=== PATIENT | male | born 1955 | race Caucasian/White ===

== ENCOUNTER → 2019-01-17 | Outpatient (CLI) | payer OTHER | LOC: M PAIN 09:00 | PROVIDERS: ATTEND Anesthesiology | DX: M96.1 Postlaminectomy syndrome, not elsewhere classified (principal); M79.2 Neuralgia and neuritis, unspecified; Z02.6 Encounter for examination for insurance purposes; E11.9 Type 2 diabetes mellitus without complications; E78.00 Pure hypercholesterolemia, unspecified; I10 Essential (primary) hypertension; Z91.041 Radiographic dye allergy status; Z91.81 History of falling; Z79.84 Long term (current) use of oral hypoglycemic drugs; Z79.899 Other long term (current) drug therapy ==

== ENCOUNTER → 2019-05-05 | Outpatient (CLI) | payer OTHER ==
--- NOTE | 2019-05-08 03:11 | ECWPNPC ---
PATIENT NAME: CIRA PEÑA : 1955 GENDER: MALE VISIT DATE: 05/05/2019 DISCHARGE DATE: 05/05/19 1417 VISIT LOCKED DATE TIME: PHYSICIAN: LAMONT GREEN RESOURCE: LAMONT GREEN REASON FOR APPOINTMENT 1. W/C CHRONIC LUMBAR HISTORY OF PRESENT ILLNESS HISTORY OF PRESENT ILLNESS: PAIN THE PATIENT DESCRIBES THE PAIN... FALL RISK SCREENING: SCREENING :NO FALLS REPORTED IN THE LAST YEAR PAIN SCREENING: PATIENT HAS A COMPLAINT OF ACUTE OR CHRONIC PAIN :YES 63 YEAR OLD MALE PATIENT WITH A HISTORY OF CHRONIC LOW BACK. THE PATIENT DESCRIBES THE PAIN ACHING, SHARP, AND SHOOTING WITH A PAIN SCORE OF 9/10 DEPENDING ON PHYSICAL ACTIVITY. 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 THE PATIENT SAYS HE IS CURRENTLY NOT WORKING DUE TO HIS BACK INJURY. THE PATIENT SAYS HE CANNOT WALK FAR WITHOUT SUPPORT OF HIS 2 CANES OR WALKER, BUT SOMETIMES FALLS WHILE USING THEM. THE PATIENT SAYS HE MAINLY RELIES ON HIS WHEELCHAIR TO GET AROUND. THE PATIENT SAYS HIS LOW BACK PAIN IS AFFECTING HIS ABILITY TO PERFORM HIS DAILY ACTIVITIES SUCH CLEANING HIS HOUSE, COOKING, AND WALKING. THE PATIENT STATES HE HAS TRIED PHYSICAL THERAPY THAT HAS HELPED HIM IN THE PAST AND INJECTIONS, HOWEVER THEY DID NOT HELP MUCH. THE PATIENT SAYS HE IS USING NUCYNTA 50 MG AND GABAPENTIN 300 MG, WHICH AIDS IN SOME PAIN RELIEF, BUT HIS PAIN IS STILL QUITE SEVERE. THE PATIENT MENTIONS HE HAD AN OPERATION IN DECEMBER [address] SORIANO AND SUFFERED AN INFECTION AFTERWARD THAT WAS DISCOVERED LAST OCTOBER. THE PATIENT SAYS THE INFECTION CAUSED LOSS OF BOWEL AND URINE CONTROL AND CONSTANT HEADACHES, BUT HE FEELS HE IS RECOVERING AND IS FEELING MUCH BETTER. CURRENT MEDICATIONS TAKING NUCYNTA 50 MG TABLET 1 TABLET ORALLY 1 TAB IN A.M., 1 AT 1200 AND 2 TABS AT NIGHT TAKING GABAPENTIN 300 MG TABLET 1 TABLET ORALLY 2 TABS IN A.M. AND NOON AND 3 TABS IN EVENING TAKING ALLOPURINOL 300 MG TABLET 1 TAB ORALLY DAILY TAKING FLUCONAZOLE 100 MG TABLET 1 TABLET ORALLY TAKING AMLODIPINE BESYLATE 10 MG TABLET 1 TABLET ORALLY ONCE A DAY TAKING TAMSULOSIN HCL 0.4 MG CAPSULE EXTENDED RELEASE 24 HOUR 1 CAPSULE 30 MINUTES AFTER THE SAME MEAL EACH DAY ORALLY ONCE A DAY TAKING LISINOPRIL 10 MG TABLET 1 TABLET ORALLY ONCE A DAY TAKING LOVASTATIN 40 MG TABLET 1 TABLET WITH THE EVENING MEAL ORALLY ONCE A DAY TAKING RIZATRIPTAN BENZOATE 10 MG TABLET 1 TABLET NEEDED ONE TIME ORALLY ONCE A DAY TAKING FARXIGA 10 MG TABLET 1 TABLET ORALLY ONCE A DAY TAKING METFORMIN HCL 1000 MG TABLET 1 TABLET WITH A MEAL ORALLY BID TAKING GLIMEPIRIDE 4 MG TABLET 1 TABLET WITH BREAKFAST OR THE FIRST MAIN MEAL OF THE DAY ORALLY BID TAKING NORTRIPTYLINE HCL 25 MG CAPSULE 2 CAPS ORALLY BEFORE BEDTIME MEDICATION LIST REVIEWED AND RECONCILED WITH THE PATIENT PAST MEDICAL HISTORY DIABETES HIGH CHOLESTEROL LOW BACK PAIN GOUT KIDNEY INFECCTION HYPERTENSION HEADACHES ENLARGED PROSTATE ALLERGIES IV DYE: FEVER AND VOMITING - ALLERGY SURGICAL HISTORY BACK SURGERY WITH HARDWARE 12/2012 COLONOSCOPY-WITH POLYP REMOVAL AND GROWTH REMOVAL FAMILY HISTORY FATHER: 56 YRS, SUICIDE DEPRESSION ARTHRITIS, DIAGNOSED WITH UNSPECIFIED NONPSYCHOTIC MENTAL DISORDER FOLLOWING ORGANIC BRAIN DAMAGE MOTHER: ALIVE 94 YRS, DIABETES, UNSPECIFIED CEREBRAL ARTERY OCCLUSION WITH CEREBRAL INFARCTION 1 SON(S) . SON-UNKNOWN HISTORY. SOCIAL HISTORY GENERAL: TOBACCO USE ARE YOU A:NONSMOKER EDUCATION LEVEL OF EDUCATION:FINISHED HIGH SCHOOL DIET: CARBOHYDRATE CONTROLLED. LANGUAGE LANGUAGES SPOKEN:THAI DOMESTIC VIOLENCE DO YOU FEEL SAFE IN YOUR ENVIRONMENT?YES NEW PATIENT PAIN DIARY PATIENT DESCRIBES PAIN :ACHING, HAVE IT ALL THE TIME, SHARP FROM 0-10, WHAT LEVEL IS YOUR PAIN TODAY?10 RECREATIONAL DRUG USE DRUG USE?NO EXERCISE: NONE. 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 PAIN CLINIC PFS, CLERGY, PUBLIC HEALTH REFERRALS HAS THE PATIENT BEEN EDUCATED REGARDING HIS/HER PLAN OF CARE?YES HAS THE PATIENT BEEN EDUCATED REGARDING PAIN, THE RISK FOR PAIN, THE IMPORTANCE OF EFFECTIVE PAIN MANAGEMENT, AND THE PAIN ASSESSMENT PROCESS?YES LATEX QUESTIONNAIRE LATEX ALLERGY : HAVE YOU EVER DEVELOPED ANY TYPE OF REACTION AFTER HANDLING LATEX PRODUCTS SUCH RUBBER GLOVES, CONDOMS, DIAPHRAGMS, BALLOONS, SOCKS, OR UNDERWEAR?NO LATEX ALLERGY : HAVE YOU EVER DEVELOPED ANY TYPE OF REACTION DURING OR AFTER DENTAL APPOINTMENT, VAGINAL/RECTAL EXAMINATION, SURGICAL PROCEDURE, OR ANY OTHER EXPOSURE?NO DATE ASKED : 01/17/2019 LATEX RISK : HAVE YOU EVER HAD ANY DIFFICULTY BREATHING OR HIVES AFTER EATING OR HANDLING ANY FRUITS, OR VEGETABLES; SUCH KIWI, BANANAS, STONE FRUITS, OR CHESTNUTSNO LATEX RISK : DO YOU HAVE A PREVIOUS PERSONAL HISTORY OF MORE THAN NINE SURGERIES, SPINA BIFIDA, OR REPEATED CATHERIZATIONS? NO LATEX RISK : ARE YOU FREQUENTLY EXPOSED TO LATEX PRODUCTS IN YOUR OCCUPATION?NO CAFFEINE CAFFEINE USE?NO ADVANCE DIRECTIVE ADVANCE DIRECTIVE DISCUSSED WITH PATIENT:YES PT DOES NOT HAVE ANY ADVANCED DIRECTIVES AND HE DECLINES INFORMATION ON HCP AT THIS TIME. ZOROASTRIAN [id number] NONE MARITAL STATUS: .. ALCOHOL SCREENING DID YOU HAVE A DRINK CONTAINING ALCOHOL IN THE PAST YEAR?NO POINTS0 INTERPRETATIONNEGATIVE OCCUPATION: DISABLED. HOSPITALIZATION/MAJOR DIAGNOSTIC PROCEDURE BACK SURGERY REVIEW OF SYSTEMS REVIEWED BY: PROVIDER: BRITTANIE PERRY . CONSTITUTIONAL: ANY CHANGE IN YOUR MEDICAL CONDITION? NO . CHILLS NO . FEVER NO . INFECTION: DO YOU HAVE NEW INFECTIONS? NO . DO YOU HAVE HISTORY OF MRSA? NO . MUSCULOSKELETAL: ANY NEW PATTERNS OF PAIN OR NUMBNESS? NO . GASTROENTEROLOGY: ANY NEW CHANGE IN BOWEL CONTROL? NO . GENITOURINARY: ANY NEW CHANGE IN BLADDER CONTROL? YES, PT C/O URGENCY SINCE BACK SURGERY 07/2018 . IS THERE A CHANCE YOU COULD BE ? NO . HEMATOLOGY/LYMPH: DO YOU TAKE ANY BLOOD THINNERS? (FOR EXAMPLE- COUMADIN, PLAVIX, AGGRENOX, PLATEL, PRADAXA, OR XARELTO) NO . WHEN WAS YOUR LAST DOSE? DATE: TIME: . NEUROLOGY: HAVE YOU FALLEN IN THE PAST 12 MONTHS? YES, PT FELL 2 MOS AGO FROM LOSS OF BALANCE PT DENIES INJURIES . ANY NEW EXTREMITY NUMBNESS OR WEAKNESS? NO . CARDIOLOGY: DO YOU HAVE A PACEMAKER OR DEFIBRILLATOR? NO . RESPIRATORY: HAVE YOU BEEN SICK IN THE PAST WEEK? NO . FEVER NO . FLU LIKE SYMPTOMS? NO . COUGH NO . INTEGUMENTARY: DO YOU HAVE ANY RASHES OR OPEN SORES? NO . ALLERGIC/IMMUNO: ARE YOU ALLERGIC TO IV DYE? NO . ANY NEW ALLERGIES? NO . PSYCHIATRIC: DO YOU HAVE THOUGHTS OF HURTING YOURSELF OR SOMEONE ELSE? NO . ARE YOU ABUSED, NEGLECTED, OR IN AN UNSAFE ENVIRONMENT? NO . ENDOCRINOLOGY: ARE YOU DIABETIC? NO . OTHER: DO YOU NEED ANY PRESCRIPTIONS? NO . IF YES, PLEASE LIST: ____ . ANY NEW PROBLEMS WITH YOUR MEDICATIONS? NO . WHEN DID YOU LAST EAT? ____ . WHEN DID YOU LAST DRINK? ____ . WHAT DID YOU LAST DRINK? ____ . NAME OF PERSON DRIVING YOU HOME? ____ . DO YOU HAVE ANY OTHER QUESTIONS OR CONCERNS NO . VITAL SIGNS WT 254 LBS, HT 70 IN, BMI 36.44 INDEX, BP 121/69 MM HG, HR 91 /MIN, RR 16 /MIN, TEMP 97.9 F, OXYGEN SAT % 96, REVIEWED BY: EM. EXAMINATION GENERAL EXAMINATION: GENERALNO ACUTE DISTRESS, WELL NOURISHED AND HYDRATED. PSYCHAPPROPRIATE MOOD AND AFFECT . LUNGS:CLEAR TO AUSCULTATION BILATERALLY, NO WHEEZES, RHONCHI, RALES. HEART:NO MURMURS, REGULAR RATE AND RHYTHM. ASSESSMENTS LUMBAR POST-LAMINECTOMY SYNDROME - M96.1 (PRIMARY) TREATMENT LUMBAR POST-LAMINECTOMY SYNDROME CLINICAL NOTES: 64-YEAR-OLD MALE IN FOR WORKMEN'S COMP. CHRONIC PAIN FOLLOW-UP. GIVEN PRESENTING SYMPTOMS AND RESULTS OF PHYSICAL EXAMINATION RECOMMENDED INVESTIGATING TO WHY PATIENT HAS NOT BEEN CONTACTED REGARDING PSYCH EVAL OF YET. FURTHER RECOMMENDED PATIENT DISCUSS DCS TRIAL WITH THE [employer] REP. PATIENT HAS EXPRESSED UNDERSTANDING OF AND WAS IN AGREEMENT WITH TX PLAN. GIVEN TIME TO ASK QUESTIONS AND EXPRESS CONCERNS. CHERYL FROM [employer] DID DISCUSS DCS TRIAL WITH PATIENT IN OFFICE TODAY. . PROCEDURES PN WORKMANS' COMP OPINION IN YOUR OPINION, WAS THE INCIDENT THAT THE PATIENT DESCRIBED THE COMPETENT MEDICAL CAUSE OF THIS INJURY/ILLNESS? YES ARE THE PATIENT'S COMPLAINTS CONSISTENT WITH HIS/HER HISTORY OF THE INJURY/ILLNESS? YES IS THE PATIENT'S HISTORY OF THE INJURY/ILLNESS CONSISTENT WITH YOUR OBJECTIVE FINDING? YES WHAT IS THE PERCENTAGE OF TEMPORARY IMPAIRMENT? TOTAL = 100% IS THE PATIENT WORKING? NO DOCTOR ON SITE: NICOLE MCNEILL MD PROCEDURE CODES FA211 ESTABILISHED PATIENT [facility] CHARGE DISPOSITION & COMMUNICATION FOLLOW UP AFTER PSYCH EVAL (REASON: WORKMEN'S COMP. LOW BACK PAIN) ELECTRONICALLY SIGNED BY ZAC HARO ON 05/07/2019 AT 01:43 PM EST DISCLAIMER : THIS IS A VISIT SUMMARY EXTRACTED FROM THE [employer] CHART. IT IS NOT A COPY OF THE [employer] PROGRESS NOTE. ADAM
== END ==
LOC: M PAIN 13:15
PROVIDERS: ATTEND Family Medicine
DX: M96.1 Postlaminectomy syndrome, not elsewhere classified (principal); E11.9 Type 2 diabetes mellitus without complications; I10 Essential (primary) hypertension; Z91.041 Radiographic dye allergy status; Z79.84 Long term (current) use of oral hypoglycemic drugs; Z79.891 Long term (current) use of opiate analgesic; Z79.899 Other long term (current) drug therapy

== ENCOUNTER → 2019-08-19 | Outpatient (CLI) | payer OTHER, MEDICARE ==
--- NOTE | 2019-08-28 02:41 | ECWPNPC ---
PATIENT NAME: CIRA PEÑA : 1955 GENDER: MALE VISIT DATE: 08/19/2019 DISCHARGE DATE: 08/19/19 1427 VISIT LOCKED DATE TIME: PHYSICIAN: NICOLE GONSALES MD RESOURCE: NICOLE GONSALES MD REASON FOR APPOINTMENT 1. W/C DISCUSS MILD PROCEDURE VS DCS TRIAL HISTORY OF PRESENT ILLNESS HISTORY OF PRESENT ILLNESS: PAIN THE PATIENT DESCRIBES THE PAIN... PERMISSION FROM PATIENT WAS RECEIVED TO DO TELEPHONE OFFICE VISITS. 64 YEAR OLD MALE PATIENT WITH A HISTORY OF CHRONIC LOW BACK AND LEG PAIN. THE PATIENT DESCRIBES THE PAIN ACHING, HAVE IT ALL THE TIME, SHARP WITH A PAIN SCORE OF 7-10/10 DEPENDING ON PHYSICAL ACTIVITY. 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 THE PATIENT SAYS HE HAS COMPLETED HIS PSYCHOLOGICAL EVALUATION ON JUNE 17, 2019. THE PATIENT SAYS HIS PAIN IS NOT BETTER SINCE HIS LAST MRI AND HAS WORSENED AT TIMES. THE PATIENT SAYS HIS DOCTOR HAD HIM STOP NUCYNTA 50 MG AND START BELBUCA. THE PATIENT SAYS HE IS USING A CANE AND WALKER TO AMBULATE AND SOMETIMES A WHEELCHAIR WELL. THE PATIENT SAYS HE SITS FOR MOST OF THE DAY SINCE IT IS HARD FOR HIM TO STAND DUE TO HIS PAIN. PATIENT DENIES UNEXPLAINABLE WEIGHT LOSS, FEVER, CHILLS, NEW CHANGES ON HIS URINARY OR BOWEL CONTROL. FALL RISK SCREENING: SCREENING :NO FALLS REPORTED IN THE LAST YEAR CURRENT MEDICATIONS TAKING GABAPENTIN 300 MG TABLET 1 TABLET ORALLY 2 TABS IN A.M. AND NOON AND 3 TABS IN EVENING TAKING ALLOPURINOL 300 MG TABLET 1 TAB ORALLY DAILY TAKING FLUCONAZOLE 100 MG TABLET 1 TABLET ORALLY TAKING AMLODIPINE BESYLATE 10 MG TABLET 1 TABLET ORALLY ONCE A DAY TAKING LISINOPRIL 10 MG TABLET 1 TABLET ORALLY ONCE A DAY TAKING LOVASTATIN 40 MG TABLET 1 TABLET WITH THE EVENING MEAL ORALLY ONCE A DAY TAKING RIZATRIPTAN BENZOATE 10 MG TABLET 1 TABLET NEEDED ONE TIME ORALLY ONCE A DAY TAKING FARXIGA 10 MG TABLET 1 TABLET ORALLY ONCE A DAY TAKING METFORMIN HCL 1000 MG TABLET 1 TABLET WITH A MEAL ORALLY BID TAKING GLIMEPIRIDE 4 MG TABLET 1 TABLET WITH BREAKFAST OR THE FIRST MAIN MEAL OF THE DAY ORALLY BID TAKING NORTRIPTYLINE HCL 25 MG CAPSULE 2 CAPS ORALLY BEFORE BEDTIME TAKING TAMSULOSIN HCL 0.4 MG CAPSULE EXTENDED RELEASE 24 HOUR 1 CAPSULE 30 MINUTES AFTER THE SAME MEAL EACH DAY ORALLY ONCE A DAY NOT-TAKING NUCYNTA 50 MG TABLET 1 TABLET ORALLY 1 TAB IN A.M., 1 AT 1200 AND 2 TABS AT NIGHT NOT-TAKING BACTRIM DS 800-160 MG TABLET 1 TABLET 1 HOUR PRIOR TO YOUR CYSTOSCOPY ORALLY ONCE MEDICATION LIST REVIEWED AND RECONCILED WITH THE PATIENT PAST MEDICAL HISTORY DIABETES HIGH CHOLESTEROL LOW BACK PAIN GOUT KIDNEY INFECCTION HYPERTENSION HEADACHES ENLARGED PROSTATE ALLERGIES IV DYE: FEVER AND VOMITING - ALLERGY SURGICAL HISTORY BACK SURGERY WITH HARDWARE 12/2012 COLONOSCOPY-WITH POLYP REMOVAL AND GROWTH REMOVAL CYSTOSCOPY 06/20/19 FAMILY HISTORY FATHER: 56 YRS, SUICIDE DEPRESSION ARTHRITIS, DIAGNOSED WITH UNSPECIFIED NONPSYCHOTIC MENTAL DISORDER FOLLOWING ORGANIC BRAIN DAMAGE MOTHER: ALIVE 95 YRS, DIABETES, UNSPECIFIED CEREBRAL ARTERY OCCLUSION WITH CEREBRAL INFARCTION 1 SON(S) . SON-UNKNOWN HISTORY. SOCIAL HISTORY GENERAL: TOBACCO USE ARE YOU A:NONSMOKER EDUCATION LEVEL OF EDUCATION:FINISHED HIGH SCHOOL DIET: CARBOHYDRATE CONTROLLED. LANGUAGE LANGUAGES SPOKEN:PORTUGUESE DOMESTIC VIOLENCE DO YOU FEEL SAFE IN YOUR ENVIRONMENT?YES NEW PATIENT PAIN DIARY PATIENT DESCRIBES PAIN :ACHING, HAVE IT ALL THE TIME, SHARP FROM 0-10, WHAT LEVEL IS YOUR PAIN TODAY?10 RECREATIONAL DRUG USE DRUG USE?NO EXERCISE: NONE. LEARNING BARRIERS / SPECIAL NEEDS BARRIERS TO LEARNING?NO HEARING IMPAIRED?NO VISION IMPAIRED?YES COGNITIVELY IMPAIRED?NO :CORRECTIVE LENSES READING READINESS TO LEARN?YES LEARNING PREFERENCES?NO LEARNING CAPABILITIES PRESENT?YES EMOTIONAL BARRIERS?NO SPECIAL DEVICES?YES :CANTimbo WALKER 2 CANES REFRIGERATOR CABINETMAKER NEEDED?NO PAIN CLINIC PFS, CLERGY, PUBLIC HEALTH REFERRALS HAS THE PATIENT BEEN EDUCATED REGARDING HIS/HER PLAN OF CARE?YES HAS THE PATIENT BEEN EDUCATED REGARDING PAIN, THE RISK FOR PAIN, THE IMPORTANCE OF EFFECTIVE PAIN MANAGEMENT, AND THE PAIN ASSESSMENT PROCESS?YES LATEX QUESTIONNAIRE LATEX ALLERGY : HAVE YOU EVER DEVELOPED ANY TYPE OF REACTION AFTER HANDLING LATEX PRODUCTS SUCH RUBBER GLOVES, CONDOMS, DIAPHRAGMS, BALLOONS, SOCKS, OR UNDERWEAR?NO LATEX ALLERGY : HAVE YOU EVER DEVELOPED ANY TYPE OF REACTION DURING OR AFTER DENTAL APPOINTMENT, VAGINAL/RECTAL EXAMINATION, SURGICAL PROCEDURE, OR ANY OTHER EXPOSURE?NO DATE ASKED : 06/20/2019 LATEX RISK : HAVE YOU EVER HAD ANY DIFFICULTY BREATHING OR HIVES AFTER EATING OR HANDLING ANY FRUITS, OR VEGETABLES; SUCH KIWI, BANANAS, STONE FRUITS, OR CHESTNUTSNO LATEX RISK : DO YOU HAVE A PREVIOUS PERSONAL HISTORY OF MORE THAN NINE SURGERIES, SPINA BIFIDA, OR REPEATED CATHERIZATIONS? NO LATEX RISK : ARE YOU FREQUENTLY EXPOSED TO LATEX PRODUCTS IN YOUR OCCUPATION?NO CAFFEINE CAFFEINE USE?NO ADVANCE DIRECTIVE ADVANCE DIRECTIVE DISCUSSED WITH PATIENT:YES PT DOES NOT HAVE ANY ADVANCED DIRECTIVES AND HE DECLINES INFORMATION ON HCP AT THIS TIME. HINDU [id number] NONE MARITAL STATUS: .. ALCOHOL SCREENING DID YOU HAVE A DRINK CONTAINING ALCOHOL IN THE PAST YEAR?NO POINTS0 INTERPRETATIONNEGATIVE OCCUPATION: DISABLED. HOSPITALIZATION/MAJOR DIAGNOSTIC PROCEDURE BACK SURGERY REVIEW OF SYSTEMS REVIEWED BY: PROVIDER: NICOLE GONSALES MD . CONSTITUTIONAL: ANY CHANGE IN YOUR MEDICAL CONDITION? NO . CHILLS NO . FEVER NO . INFECTION: DO YOU HAVE NEW INFECTIONS? NO . DO YOU HAVE HISTORY OF MRSA? NO . MUSCULOSKELETAL: ANY NEW PATTERNS OF PAIN OR NUMBNESS? NO . GASTROENTEROLOGY: ANY NEW CHANGE IN BOWEL CONTROL? NO . GENITOURINARY: ANY NEW CHANGE IN BLADDER CONTROL? NO . IS THERE A CHANCE YOU COULD BE ? NO . HEMATOLOGY/LYMPH: DO YOU TAKE ANY BLOOD THINNERS? (FOR EXAMPLE- COUMADIN, PLAVIX, AGGRENOX, PLATEL, PRADAXA, OR XARELTO) NO . WHEN WAS YOUR LAST DOSE? DATE: TIME: . NEUROLOGY: HAVE YOU FALLEN IN THE PAST 12 MONTHS? YES I CANT TO WHEM . ANY NEW EXTREMITY NUMBNESS OR WEAKNESS? NO . CARDIOLOGY: DO YOU HAVE A PACEMAKER OR DEFIBRILLATOR? NO . RESPIRATORY: HAVE YOU BEEN SICK IN THE PAST WEEK? NO . FEVER NO . FLU LIKE SYMPTOMS? NO . COUGH NO . INTEGUMENTARY: DO YOU HAVE ANY RASHES OR OPEN SORES? NO . ALLERGIC/IMMUNO: ARE YOU ALLERGIC TO IV DYE? YES . ANY NEW ALLERGIES? NO . PSYCHIATRIC: DO YOU HAVE THOUGHTS OF HURTING YOURSELF OR SOMEONE ELSE? NO . ARE YOU ABUSED, NEGLECTED, OR IN AN UNSAFE ENVIRONMENT? NO . ENDOCRINOLOGY: ARE YOU DIABETIC? NO . OTHER: DO YOU NEED ANY PRESCRIPTIONS? NO . IF YES, PLEASE LIST: ____ . ANY NEW PROBLEMS WITH YOUR MEDICATIONS? NO . WHEN DID YOU LAST EAT? ____ . WHEN DID YOU LAST DRINK? ____ . WHAT DID YOU LAST DRINK? ____ . NAME OF PERSON DRIVING YOU HOME? ____ . DO YOU HAVE ANY OTHER QUESTIONS OR CONCERNS PT VERBALIZES THAT HE HAS DIFFICULTY UNDERSTANDING DR GONSALES , THIS NURSE STATED THAT HIS SCRIBE WILL BE WITH HIM AND THAT HE SHOULD ASK WHEN HE DOESNT UNDERSTAND . EXAMINATION GENERAL EXAMINATION: TELEMEDICINE VISIT. PSYCHOLOGICAL EVALUATION DONE ON 06/17/2019 WAS REVIEWED. MRI OF THE LUMBAR SPINE DONE ON 03/05/2018 SHOWS POST LAMINECTOMY CHANGES. MRI OF THE THORACIC SPINE DONE ON 09/05/2018 SHOWS FACET ARTHROPATHY CHANGES. ASSESSMENTS LUMBAR POST-LAMINECTOMY SYNDROME - M96.1 (PRIMARY) OTHER CHRONIC PAIN - G89.29 LOW BACK PAIN - M54.5 PAIN IN THORACIC SPINE - M54.6 TREATMENT LUMBAR POST-LAMINECTOMY SYNDROME CLINICAL NOTES: WE DISCUSSED SEVERAL ISSUES WITH MR. PEÑA' PAIN MANAGEMENT CASE. I WOULD LIKE TO REQUEST FOR A NEW THORACIC AND LUMBAR MRI TO BE DONE SINCE THE PATIENT'S LAST MRI'S WERE DONE MORE THAN A YEAR AGO, AND TO ENSURE THERE IS ADEQUATE SPACE FOR THE DCS LEAD CABLES TO PASS THROUGH THE SPINE. I DISCUSSED THE DCS TRIAL WITH THE PATIENT AND AM LOOKING FOR MORE THAN 80 PERCENT OF PAIN RELIEF DURING THE TRIAL WEEK. THE PATIENT COMPLETED HIS DCS PSYCHOLOGICAL EVALUATION, WHICH STATES THERE ARE NO ISSUES THAT WOULD INTERFERE WITH HIS TRIAL OR IMPLANT SURGERY. I WILL REQUEST FOR AUTHORIZATION FOR THE DCS TRIAL. THE PATIENT WILL FOLLOW UP WITH THE NURSE PRACTITIONER IN 2 MONTHS. THE TOTAL TIME FOR THE TELEPHONE VISIT WAS 12 MINUTES. INSTRUCTIONS WERE GIVEN, QUESTIONS WERE ANSWERED, PATIENT REPORTS UNDERSTANDING AND AGREES WITH THE PLAN. I, KAREN BOUDREAUX, DOCUMENTED THE ABOVE INFORMATION ACTING A SCRIBE FOR DR. GONSALES. I HAVE REVIEWED THE ABOVE DOCUMENT, WRITTEN BY KAREN BOUDREAUX SCRIBTimbo AND I VERIFY THAT IT IS ACCURATE. . OTHER CHRONIC PAIN [facility] MRI LUMBAR W/O CONTRAST (CPT [id number] LOW BACK PAIN [facility] MRI LUMBAR W/O CONTRAST (CPT [id number] PAIN IN THORACIC SPINE [facility] MRI SPINE,THORACIC WITHOUT [id number] PROCEDURES PN WORKMANS' COMP OPINION IN YOUR OPINION, WAS THE INCIDENT THAT THE PATIENT DESCRIBED THE COMPETENT MEDICAL CAUSE OF THIS INJURY/ILLNESS? YES ARE THE PATIENT'S COMPLAINTS CONSISTENT WITH HIS/HER HISTORY OF THE INJURY/ILLNESS? YES IS THE PATIENT'S HISTORY OF THE INJURY/ILLNESS CONSISTENT WITH YOUR OBJECTIVE FINDING? YES WHAT IS THE PERCENTAGE OF TEMPORARY IMPAIRMENT? TOTAL = 100% IS THE PATIENT WORKING? NO DOCTOR ON SITE: NICOLE MCNEILL MD DISPOSITION & COMMUNICATION FOLLOW UP 2 MONTHS (REASON: ORDERING NEW THORACIC/LS MRI; F/UP WITH MOTOR MECHANIC IN 2MTHS;GOING FOR SCS TRIAL) ELECTRONICALLY SIGNED BY NICOLE GONSALES MD, MD ON 08/27/2019 AT 05:19 PM EDT DISCLAIMER : THIS IS A VISIT SUMMARY EXTRACTED FROM THE [employer] CHART. IT IS NOT A COPY OF THE [employer] PROGRESS NOTE. MTDD
== END ==
LOC: M PAIN 13:00
PROVIDERS: ATTEND Anesthesiology
DX: M96.1 Postlaminectomy syndrome, not elsewhere classified (principal); G89.29 Other chronic pain; M54.5 Low back pain; M54.6 Pain in thoracic spine; E11.9 Type 2 diabetes mellitus without complications; I10 Essential (primary) hypertension; Z91.041 Radiographic dye allergy status; Z79.84 Long term (current) use of oral hypoglycemic drugs; Z79.899 Other long term (current) drug therapy

== ENCOUNTER → 2019-10-21 | Outpatient (CLI) | payer OTHER, MEDICARE ==
--- NOTE | 2019-10-23 00:26 | ECWPNPC ---
PATIENT NAME: CIRA PEÑA : 1955 GENDER: MALE VISIT DATE: 10/21/2019 DISCHARGE DATE: 10/21/19924 VISIT LOCKED DATE TIME: PHYSICIAN: LAMONT GREEN RESOURCE: LAMONT GREEN A HISTORY OF PRESENT ILLNESS GENERAL: -64-YEAR-OLD MALE IN FOR CHRONIC PAIN FOLLOW-UP. AT LAST CLINIC VISIT PATIENT MET WITH DR. GONSALES AND DISCUSSED DCS TRIAL. AT THAT TIME A LUMBAR AND THORACIC MRI WERE ORDERED WHICH WERE COMPLETED BY PATIENT. HE RATES HIS PAIN CURRENTLY AT A 10 OUT OF 10 AND DESCRIBES IT SHARP. 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 PAIN SCREENING: PATIENT HAS A COMPLAINT OF ACUTE OR CHRONIC PAIN :YES LOCATION OF PAIN:LOW BACK INTENSITY OF PAIN (SCALE OF 1 TO 10):10 WHAT DOES YOUR PAIN FEEL LIKE:SHARP DURATION:CONTINOUS, CONSTANT, ALL DAY PAIN IS INCREASED BY:ACTIVITIES WALKING PAIN IS DECREASED BY:USE OF PAIN MEDICATIONS, SITTING PLAN/GOALS/TREATMENT/INTERVENTION/FOLLOW UP:SEE PLAN FALL RISK SCREENING: SCREENING :ONE FALL WITHOUT INJURY IN THE PAST YEAR DEPRESSION SCREENING: PHQ-2 (2015 EDITION) LITTLE INTEREST OR PLEASURE IN DOING THINGS?NOT AT ALL FEELING DOWN, DEPRESSED, OR HOPELESS?NOT AT ALL TOTAL SCORE0 PAIN CENTER INTAKE QUESTIONS: DO YOU HAVE A HISTORY OF MRSA? :NO DO YOU TAKE A BLOOD THINNERS? :NO DO YOU HAVE ANY BLEEDING DISORDERS? :NO ANY NEW NUMBNESS OR WEAKNESS IN YOUR LEGS OR ARMS? :YES BOTH LEGS ANY PACEMAKER,DEFIBRILLATOR, OR DORSAL COLUMN STIMULATOR? :NO DO YOU HAVE ANY RASHES OR OPEN SORES? :NO ARE YOU ALLERGIC TO IV DYE? :YES ARE YOU DIABETIC? :YES ANY NEW PROBLEMS WITH YOUR MEDICATIONS? :NO HAVE YOU RECEIVED A VACCINE IN THE PAST 30 DAYS? :NO DO YOU PLAN TO RECEIVE A VACCINE IN THE NEXT 21 DAYS? :NO DO YOU NEED ANY PRESCRIPTION? :NO DO YOU TAKE ANY IMMUNOSUPPRESSIVE MEDICATIONS? :NO NURSING NOTE: -. CURRENT MEDICATIONS TAKING NUCYNTA 50 MG TABLET 1 TABLET ORALLY 1 TAB IN A.M., 1 AT 1200 AND 2 TABS AT NIGHT TAKING BACTRIM DS 800-160 MG TABLET 1 TABLET 1 HOUR PRIOR TO YOUR CYSTOSCOPY ORALLY ONCE TAKING GABAPENTIN 300 MG TABLET 1 TABLET ORALLY 2 TABS IN A.M. AND NOON AND 3 TABS IN EVENING TAKING ALLOPURINOL 300 MG TABLET 1 TAB ORALLY DAILY TAKING FLUCONAZOLE 100 MG TABLET 1 TABLET ORALLY TAKING AMLODIPINE BESYLATE 10 MG TABLET 1 TABLET ORALLY ONCE A DAY TAKING LISINOPRIL 10 MG TABLET 1 TABLET ORALLY ONCE A DAY TAKING LOVASTATIN 40 MG TABLET 1 TABLET WITH THE EVENING MEAL ORALLY ONCE A DAY TAKING RIZATRIPTAN BENZOATE 10 MG TABLET 1 TABLET NEEDED ONE TIME ORALLY ONCE A DAY TAKING FARXIGA 10 MG TABLET 1 TABLET ORALLY ONCE A DAY TAKING METFORMIN HCL 1000 MG TABLET 1 TABLET WITH A MEAL ORALLY BID TAKING GLIMEPIRIDE 4 MG TABLET 1 TABLET WITH BREAKFAST OR THE FIRST MAIN MEAL OF THE DAY ORALLY BID TAKING NORTRIPTYLINE HCL 25 MG CAPSULE 2 CAPS ORALLY BEFORE BEDTIME TAKING TAMSULOSIN HCL 0.4 MG CAPSULE EXTENDED RELEASE 24 HOUR 1 CAPSULE 30 MINUTES AFTER THE SAME MEAL EACH DAY ORALLY ONCE A DAY MEDICATION LIST REVIEWED AND RECONCILED WITH THE PATIENT PAST MEDICAL HISTORY DIABETES HIGH CHOLESTEROL LOW BACK PAIN GOUT KIDNEY INFECCTION HYPERTENSION HEADACHES ENLARGED PROSTATE ALLERGIES IV DYE: FEVER AND VOMITING - ALLERGY SURGICAL HISTORY BACK SURGERY WITH HARDWARE 12/2012 COLONOSCOPY-WITH POLYP REMOVAL AND GROWTH REMOVAL CYSTOSCOPY 06/20/19 FAMILY HISTORY FATHER: 56 YRS, SUICIDE DEPRESSION ARTHRITIS, DIAGNOSED WITH UNSPECIFIED NONPSYCHOTIC MENTAL DISORDER FOLLOWING ORGANIC BRAIN DAMAGE MOTHER: ALIVE 95 YRS, DIABETES, UNSPECIFIED CEREBRAL ARTERY OCCLUSION WITH CEREBRAL INFARCTION 1 SON(S) . SON-UNKNOWN HISTORY. SOCIAL HISTORY GENERAL: TOBACCO USE ARE YOU A:NONSMOKER LATEX QUESTIONNAIRE LATEX ALLERGY : HAVE YOU EVER DEVELOPED ANY TYPE OF REACTION AFTER HANDLING LATEX PRODUCTS SUCH RUBBER GLOVES, CONDOMS, DIAPHRAGMS, BALLOONS, SOCKS, OR UNDERWEAR?NO LATEX ALLERGY : HAVE YOU EVER DEVELOPED ANY TYPE OF REACTION DURING OR AFTER DENTAL APPOINTMENT, VAGINAL/RECTAL EXAMINATION, SURGICAL PROCEDURE, OR ANY OTHER EXPOSURE?NO LATEX RISK : HAVE YOU EVER HAD ANY DIFFICULTY BREATHING OR HIVES AFTER EATING OR HANDLING ANY FRUITS, OR VEGETABLES; SUCH KIWI, BANANAS, STONE FRUITS, OR CHESTNUTSNO LATEX RISK : DO YOU HAVE A PREVIOUS PERSONAL HISTORY OF MORE THAN NINE SURGERIES, SPINA BIFIDA, OR REPEATED CATHERIZATIONS? NO LATEX RISK : ARE YOU FREQUENTLY EXPOSED TO LATEX PRODUCTS IN YOUR OCCUPATION?NO DATE ASKED : 10/21/2019 ALCOHOL SCREENING DID YOU HAVE A DRINK CONTAINING ALCOHOL IN THE PAST YEAR?NO POINTS0 INTERPRETATIONNEGATIVE RECREATIONAL DRUG USE DRUG USE?NO CAFFEINE CAFFEINE USE?NO SIKH [id number] NONE LANGUAGE LANGUAGES SPOKEN:TAMAZIGHT EDUCATION LEVEL OF EDUCATION:FINISHED HIGH SCHOOL LEARNING BARRIERS / SPECIAL NEEDS BARRIERS TO LEARNING?NO HEARING IMPAIRED?NO VISION IMPAIRED?YES COGNITIVELY IMPAIRED?NO :CORRECTIVE LENSES READING READINESS TO LEARN?YES LEARNING PREFERENCES?NO LEARNING CAPABILITIES PRESENT?YES EMOTIONAL BARRIERS?NO SPECIAL DEVICES?YES :CANE, WALKER 2 CANES SHIPPING CLERK NEEDED?NO DOMESTIC VIOLENCE DO YOU FEEL SAFE IN YOUR ENVIRONMENT?YES OCCUPATION: DISABLED. DIET: CARBOHYDRATE CONTROLLED. EXERCISE: NONE. MARITAL STATUS: .. NEW PATIENT PAIN DIARY PATIENT DESCRIBES PAIN :ACHING, HAVE IT ALL THE TIME, SHARP FROM 0-10, WHAT LEVEL IS YOUR PAIN TODAY?10 PAIN CLINIC PFS, CLERGY, PUBLIC HEALTH REFERRALS HAS THE PATIENT BEEN EDUCATED REGARDING HIS/HER PLAN OF CARE?YES HAS THE PATIENT BEEN EDUCATED REGARDING PAIN, THE RISK FOR PAIN, THE IMPORTANCE OF EFFECTIVE PAIN MANAGEMENT, AND THE PAIN ASSESSMENT PROCESS?YES ADVANCE DIRECTIVE ADVANCE DIRECTIVE DISCUSSED WITH PATIENT:YES PT DOES NOT HAVE ANY ADVANCED DIRECTIVES AND HE DECLINES INFORMATION ON HCP AT THIS TIME. HOSPITALIZATION/MAJOR DIAGNOSTIC PROCEDURE BACK SURGERY REVIEW OF SYSTEMS CONSTITUTIONAL: ANY RECENT FEVER OR ILLNESS NO . CHILLS NO . GASTROENTEROLOGY: BOWEL INCONTINENCE NO . ANY NEW CHANGE IN BOWEL CONTROL? NO . ABDOMINAL PAIN NO . CONSTIPATION NO . GENITOURINARY: ANY NEW CHANGE IN BLADDER CONTROL? NO . IS THERE A CHANCE YOU COULD BE ? NO . URINARY INCONTINENCE NO . CARDIOLOGY: CHEST PRESSURE NO . CHEST PAIN NO . RESPIRATORY: COUGH NO . SHORTNESS OF BREATH NO . VITAL SIGNS WT 275.2 LBS, HT 70 IN, BMI 39.48 INDEX, BP 131/64 MM HG, HR 90 /MIN, RR 18 /MIN, TEMP 98.4 F, OXYGEN SAT % 100%, SAFE IN ENV? (Y/N) YES, NA INITIALS AW [id number] ASUMADU PEDIATRIC NURSE PRACTITIONER. EXAMINATION GENERAL EXAMINATION: GENERALNO ACUTE DISTRESS, WELL NOURISHED AND HYDRATED. PSYCHAPPROPRIATE MOOD AND AFFECT . LUNGS:CLEAR TO AUSCULTATION BILATERALLY, NO WHEEZES, RHONCHI, RALES. HEART:NO MURMURS, REGULAR RATE AND RHYTHM. ASSESSMENTS LUMBAR POST-LAMINECTOMY SYNDROME - M96.1 (PRIMARY) TREATMENT LUMBAR POST-LAMINECTOMY SYNDROME CLINICAL NOTES: 64-YEAR-OLD MALE IN FOR CHRONIC PAIN FOLLOW-UP. DISCUSSED CASE WITH DR. GONSALES AND IT WAS DECIDED PATIENT WILL FOLLOW-UP WITH HIM IN ONE MONTH. PATIENT STATES THERE STILL AWAITING CLEARANCE FROM WORKER'S COMP. TO PERFORM DCS TRIAL. PATIENT HAS EXPRESSED UNDERSTANDING OF AND WAS IN AGREEMENT WITH TREATMENT PLAN. GIVEN TIME TO ASK QUESTIONS AND EXPRESS CONCERNS. . PROCEDURES PN WORKMANS' COMP OPINION IN YOUR OPINION, WAS THE INCIDENT THAT THE PATIENT DESCRIBED THE COMPETENT MEDICAL CAUSE OF THIS INJURY/ILLNESS? YES ARE THE PATIENT'S COMPLAINTS CONSISTENT WITH HIS/HER HISTORY OF THE INJURY/ILLNESS? YES IS THE PATIENT'S HISTORY OF THE INJURY/ILLNESS CONSISTENT WITH YOUR OBJECTIVE FINDING? YES WHAT IS THE PERCENTAGE OF TEMPORARY IMPAIRMENT? TOTAL = 100% IS THE PATIENT WORKING? NO DOCTOR ON SITE: NICOLE MCNEILL MD PROCEDURE CODES FA211 ESTABILISHED PATIENT [facility] CHARGE DISPOSITION & COMMUNICATION FOLLOW UP 4 WEEKS (REASON: F/U DR Demarco ) ELECTRONICALLY SIGNED BY ZAC HARO ON 10/22/2019 AT 08:06 AM EDT DISCLAIMER : THIS IS A VISIT SUMMARY EXTRACTED FROM THE [employer] CHART. IT IS NOT A COPY OF THE [employer] PROGRESS NOTE. ADAM
== END ==
LOC: M PAIN 08:45
PROVIDERS: ATTEND Family Medicine
DX: M96.1 Postlaminectomy syndrome, not elsewhere classified (principal); E11.9 Type 2 diabetes mellitus without complications; Z79.84 Long term (current) use of oral hypoglycemic drugs; Z79.899 Other long term (current) drug therapy; Z91.041 Radiographic dye allergy status

== ENCOUNTER → 2019-11-07 | Outpatient (CLI) | payer OTHER, MEDICARE ==
--- NOTE | 2019-11-11 00:57 | ECWPNPC ---
PATIENT NAME: CIRA PEÑA : 1955 GENDER: MALE VISIT DATE: 11/07/2019 DISCHARGE DATE: 11/07/19 1451 VISIT LOCKED DATE TIME: PHYSICIAN: NICOLE GONSALES MD RESOURCE: NICOLE GONSALES MD REASON FOR APPOINTMENT 1. PRE-SEDATE DCS/ *PATIENT WILL NEED WHEELCHAIR ASSISTANCE* HISTORY OF PRESENT ILLNESS GENERAL: 64 YEAR OLD MALE PATIENT WITH A HISTORY OF CHRONIC LOW BACK AND LEG PAIN. THE PATIENT DESCRIBES HIS PAIN CONTINUOUS AND SHARP WITH A PAIN SCORE OF 8-10/10 DEPENDING ON PHYSICAL ACTIVITY. 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 THE PATIENT SAYS HIS PAIN HAS INCREASED OVER THE LAST FEW MONTHS AND IS AFFECTING HIS ABILITY TO PERFORM HIS DAILY ACTIVITIES SUCH WALKING AND STANDING. THE PATIENT IS USING A WALKER TO AMBULATE AND IS CURRENTLY IN A WHEELCHAIR. THE PATIENT SAYS HE CAN STAND FOR SEVERAL MINUTES AND WALK FOR SEVERAL METERS BEFORE NEEDING TO STOP AND REST. PATIENT DENIES UNEXPLAINABLE WEIGHT LOSS, FEVER, CHILLS, NEW CHANGES ON HIS URINARY OR BOWEL CONTROL. THE PATIENT REPORTS KIDNEY ISSUES OVER THE LAST COUPLE OF MONTHS. THE PATIENT MENTIONS IN THE PAST HE HAD DIFFICULTY CONTROLLING HIS FECAL AND URINE, BUT THAT HAS RESOLVED NOW THAT HE HAS BEEN CATHETERIZING HIMSELF FOR SEVERAL MONTHS. FALL RISK SCREENING: SCREENING :ONE FALL WITHOUT INJURY IN THE PAST YEAR PAIN SCREENING: PATIENT HAS A COMPLAINT OF ACUTE OR CHRONIC PAIN :YES 11/06/19 INTENSITY OF PAIN (SCALE OF 1 TO 10):8 WHAT DOES YOUR PAIN FEEL LIKE:CONTINOUS, SHARP PAIN IS INCREASED BY: ACTIVITY PAIN IS DECREASED BY: REST NURSING NOTE: -. PAIN CENTER INTAKE QUESTIONS: DO YOU HAVE A HISTORY OF MRSA? :NO DO YOU TAKE A BLOOD THINNERS? :NO DO YOU HAVE ANY BLEEDING DISORDERS? :NO ANY NEW NUMBNESS OR WEAKNESS IN YOUR LEGS OR ARMS? :NO ANY PACEMAKER,DEFIBRILLATOR, OR DORSAL COLUMN STIMULATOR? :NO DO YOU HAVE ANY RASHES OR OPEN SORES? :NO ARE YOU ALLERGIC TO IV DYE? :YES GADALINIUM W MRI'S ARE YOU DIABETIC? :YES ANY NEW PROBLEMS WITH YOUR MEDICATIONS? :NO HAVE YOU RECEIVED A VACCINE IN THE PAST 30 DAYS? :NO DO YOU PLAN TO RECEIVE A VACCINE IN THE NEXT 21 DAYS? :NO DO YOU NEED ANY PRESCRIPTION? :NO DO YOU TAKE ANY IMMUNOSUPPRESSIVE MEDICATIONS? :NO IS THERE A CHANCE YOU COULD BE ? :NO ARE YOU BREAST FEEDING? :NO CURRENT MEDICATIONS TAKING GABAPENTIN 300 MG TABLET 3 TABLET ORALLY THREE TIMES DAILY TAKING ALLOPURINOL 300 MG TABLET 1 TAB ORALLY DAILY TAKING FLUCONAZOLE 100 MG TABLET 1 TABLET ORALLY TAKING AMLODIPINE BESYLATE 10 MG TABLET 1 TABLET ORALLY ONCE A DAY TAKING LISINOPRIL 10 MG TABLET 1 TABLET ORALLY ONCE A DAY TAKING LOVASTATIN 40 MG TABLET 1 TABLET WITH THE EVENING MEAL ORALLY ONCE A DAY TAKING RIZATRIPTAN BENZOATE 10 MG TABLET 1 TABLET NEEDED ONE TIME ORALLY ONCE A DAY TAKING FARXIGA 10 MG TABLET 1 TABLET ORALLY ONCE A DAY TAKING METFORMIN HCL 1000 MG TABLET 1 TABLET WITH A MEAL ORALLY BID TAKING GLIMEPIRIDE 4 MG TABLET 1 TABLET WITH BREAKFAST OR THE FIRST MAIN MEAL OF THE DAY ORALLY BID TAKING NORTRIPTYLINE HCL 25 MG CAPSULE 2 CAPS ORALLY BEFORE BEDTIME TAKING TAMSULOSIN HCL 0.4 MG CAPSULE EXTENDED RELEASE 24 HOUR 1 CAPSULE 30 MINUTES AFTER THE SAME MEAL EACH DAY ORALLY ONCE A DAY NOT-TAKING NUCYNTA 50 MG TABLET 1 TABLET ORALLY 1 TAB IN A.M., 1 AT 1200 AND 2 TABS AT NIGHT NOT-TAKING BACTRIM DS 800-160 MG TABLET 1 TABLET 1 HOUR PRIOR TO YOUR CYSTOSCOPY ORALLY ONCE MEDICATION LIST REVIEWED AND RECONCILED WITH THE PATIENT PAST MEDICAL HISTORY DIABETES HIGH CHOLESTEROL LOW BACK PAIN GOUT KIDNEY INFECCTION HYPERTENSION HEADACHES ENLARGED PROSTATE ALLERGIES IV DYE: FEVER AND VOMITING - ALLERGY SURGICAL HISTORY BACK SURGERY WITH HARDWARE 12/2012 COLONOSCOPY-WITH POLYP REMOVAL AND GROWTH REMOVAL CYSTOSCOPY 06/20/19 FAMILY HISTORY FATHER: 56 YRS, SUICIDE DEPRESSION ARTHRITIS, DIAGNOSED WITH UNSPECIFIED NONPSYCHOTIC MENTAL DISORDER FOLLOWING ORGANIC BRAIN DAMAGE MOTHER: ALIVE 95 YRS, DIABETES, UNSPECIFIED CEREBRAL ARTERY OCCLUSION WITH CEREBRAL INFARCTION 1 SON(S) . SON-UNKNOWN HISTORY. SOCIAL HISTORY GENERAL: TOBACCO USE ARE YOU A:NONSMOKER LATEX QUESTIONNAIRE LATEX ALLERGY : HAVE YOU EVER DEVELOPED ANY TYPE OF REACTION AFTER HANDLING LATEX PRODUCTS SUCH RUBBER GLOVES, CONDOMS, DIAPHRAGMS, BALLOONS, SOCKS, OR UNDERWEAR?NO LATEX ALLERGY : HAVE YOU EVER DEVELOPED ANY TYPE OF REACTION DURING OR AFTER DENTAL APPOINTMENT, VAGINAL/RECTAL EXAMINATION, SURGICAL PROCEDURE, OR ANY OTHER EXPOSURE?NO DATE ASKED : 10/21/2019 LATEX RISK : HAVE YOU EVER HAD ANY DIFFICULTY BREATHING OR HIVES AFTER EATING OR HANDLING ANY FRUITS, OR VEGETABLES; SUCH KIWI, BANANAS, STONE FRUITS, OR CHESTNUTSNO LATEX RISK : DO YOU HAVE A PREVIOUS PERSONAL HISTORY OF MORE THAN NINE SURGERIES, SPINA BIFIDA, OR REPEATED CATHERIZATIONS? NO LATEX RISK : ARE YOU FREQUENTLY EXPOSED TO LATEX PRODUCTS IN YOUR OCCUPATION?NO ALCOHOL SCREENING DID YOU HAVE A DRINK CONTAINING ALCOHOL IN THE PAST YEAR?NO POINTS0 INTERPRETATIONNEGATIVE RECREATIONAL DRUG USE DRUG USE?NO CAFFEINE CAFFEINE USE?NO MORMON [id number] NONE LANGUAGE LANGUAGES SPOKEN:[place] EDUCATION LEVEL OF EDUCATION:FINISHED HIGH SCHOOL LEARNING BARRIERS / SPECIAL NEEDS BARRIERS TO LEARNING?NO HEARING IMPAIRED?NO VISION IMPAIRED?YES COGNITIVELY IMPAIRED?NO :CORRECTIVE LENSES READING READINESS TO LEARN?YES LEARNING PREFERENCES?NO LEARNING CAPABILITIES PRESENT?YES EMOTIONAL BARRIERS?NO SPECIAL DEVICES?YES :CANE, WALKER 2 CANES RETAIL SUPPORT SPECIALIST NEEDED?NO DOMESTIC VIOLENCE DO YOU FEEL SAFE IN YOUR ENVIRONMENT?YES OCCUPATION: DISABLED. DIET: CARBOHYDRATE CONTROLLED. EXERCISE: NONE. MARITAL STATUS: .. NEW PATIENT PAIN DIARY PATIENT DESCRIBES PAIN :ACHING, HAVE IT ALL THE TIME, SHARP FROM 0-10, WHAT LEVEL IS YOUR PAIN TODAY?10 PAIN CLINIC PFS, CLERGY, PUBLIC HEALTH REFERRALS HAS THE PATIENT BEEN EDUCATED REGARDING HIS/HER PLAN OF CARE?YES HAS THE PATIENT BEEN EDUCATED REGARDING PAIN, THE RISK FOR PAIN, THE IMPORTANCE OF EFFECTIVE PAIN MANAGEMENT, AND THE PAIN ASSESSMENT PROCESS?YES ADVANCE DIRECTIVE ADVANCE DIRECTIVE DISCUSSED WITH PATIENT:YES PT DOES NOT HAVE ANY ADVANCED DIRECTIVES AND HE DECLINES INFORMATION ON HCP AT THIS TIME. HOSPITALIZATION/MAJOR DIAGNOSTIC PROCEDURE BACK SURGERY REVIEW OF SYSTEMS CONSTITUTIONAL: ANY RECENT FEVER NO . CHILLS NO . WEIGHT CHANGE OF UNKNOWN REASONS NO . GASTROENTEROLOGY: NEW UNEXPLAINABLE CHANGES IN BOWEL CONTROL NO . CONSTIPATION NO . GENITOURINARY: ANY NEW CHANGE IN BLADDER CONTROL? YES . NEUROLOGY: NEW ONSET DIZZINESS OR NEUROLOGICAL CHANGES NOT MENTIONED NO . NEW NUMBNESS OR PAIN PATTERNS NOT MENTIONED AND PERTINENT TO TODAY'S VISIT NO . CARDIOLOGY: NEW CHEST PRESSURE NO . NEW CHEST PAIN NO . RESPIRATORY: UNEXPLAINABLE COUGH NO . NEW SHORTNESS OF BREATH NO . VITAL SIGNS WT 272 LBS, HT 70 IN, BMI 39.02 INDEX, BP 113/67 MM HG, HR 86 /MIN, RR 18 /MIN, TEMP 98.1 F, OXYGEN SAT % 95%, SAFE IN ENV? (Y/N) YES, NA INITIALS FL 13:29, REVIEWED BY: PATRICK. EXAMINATION GENERAL: PATIENT IS ALERT O X 3 AND COOPERATIVE. LUNGS CLEAR, TO AUSCULTATION. HEART: NO MURMURS OR GALLOPS; FACIAL CRANIAL NERVES ARE GROSSLY NORMAL. GOOD SYMMETRY OF FACIAL MUSCLE MOVEMENT. NORMAL VISUAL PARK. PATIENT IS IN A WHEELCHAIR. TENDERNESS OVER THE PARASPINAL MUSCLE GROUP OF THE LOW BACK. MRI OF THE LUMBAR SPINE DONE ON 10/01/2019 SHOWS A FUSION AT L3-L5 AND MILD CENTRAL STENOSIS AT L2-L3. MRI OF THE THORACIC SPINE DONE ON 10/01/2019 SHOWS A MILD CORD COMPRESSION AT T11-T12, 8 MM THECAL SAC, T5-T8 REDUCTION OF POSTERIOR AND MEDIAL EPIDURAL SPACE, AND INCREASED INTENSITY AT CORD CONSISTENT WITH MYELOMALACIA AT T7-T8. NO EVIDENCE OF CORD EXPANSION OR MASS. PSYCHOLOGICAL EVALUATION DONE ON 06/17/2019 STATES THERE ARE NO PSYCHOLOGICAL DISORDER THAT WOULD AFFECT DCS TRIAL OR IMPLANT. ASSESSMENTS LUMBAR POST-LAMINECTOMY SYNDROME - M96.1 (PRIMARY) INTERVERTEBRAL DISC DISORDERS WITH RADICULOPATHY, LUMBAR REGION - M51.16 TREATMENT LUMBAR POST-LAMINECTOMY SYNDROME CLINICAL NOTES: WE DISCUSSED SEVERAL ISSUES WITH MS. PEÑA' PAIN MANAGEMENT CASE. I WILL REFER THE PATIENT TO BASHIR HANSEN FOR A CONSULTATION BEFORE THE TRIAL. THORACIC MRI IS SHOWING SOME POSSIBLE MYELOMALACIA AND ALSO THE EPIDURAL SPACE IS VERY TIGHT AT SEVERAL LEVELS. AT T11-T12 THE AREA IS STENOTIC. I WOULD HAVE TO BE CAREFUL PASSING THE LEAD. AT T7-T8 THERE IS AN AREA OF POSSIBLE MYELOMALACIA. THE EPIDURAL SPACE AT T5-T6 AND T6-T7 IS SIGNIFICANTLY REDUCE. THE PATIENT'S CONDITION IS WORSENING AND HE HAS RESORTED TO CATHETERIZATION, WHICH ACCORDING TO HIM HIS TIME IN THE LAST 2 MONTHS. THE LAST TIME THAT I SAW THE PATIENT THE PATIENT CAME WITH A WALKER, NOW THE PATIENT IS IN A WHEELCHAIR. HE IS HAVING DIFFICULTIES TO WALK. BASED ON THE RECOMMENDATION, I WILL CONSIDER MOVING FORWARD WITH THE DCS TRIAL IN NOVEMBER. THE PATIENT WILL FOLLOW UP WITH ME IN ONE MONTH VIA A TELEMEDICINE VISIT. INSTRUCTIONS WERE GIVEN, QUESTIONS WERE ANSWERED, PATIENT REPORTS UNDERSTANDING AND AGREES WITH THE PLAN. I, KAREN BOUDREAUX, DOCUMENTED THE ABOVE INFORMATION ACTING A SCRIBE FOR DR. GONSALES. I HAVE REVIEWED THE ABOVE DOCUMENT, WRITTEN BY KAREN TANG AND I VERIFY THAT IT IS ACCURATE. . OTHERS CLINICAL NOTES: PRE SCREENING CALL DONE 11/06/19 EM. PROCEDURES PN WORKMANS' COMP OPINION IN YOUR OPINION, WAS THE INCIDENT THAT THE PATIENT DESCRIBED THE COMPETENT MEDICAL CAUSE OF THIS INJURY/ILLNESS? YES ARE THE PATIENT'S COMPLAINTS CONSISTENT WITH HIS/HER HISTORY OF THE INJURY/ILLNESS? YES IS THE PATIENT'S HISTORY OF THE INJURY/ILLNESS CONSISTENT WITH YOUR OBJECTIVE FINDING? YES WHAT IS THE PERCENTAGE OF TEMPORARY IMPAIRMENT? TOTAL = 100% IS THE PATIENT WORKING? NO DOCTOR ON SITE: NICOLE MCNEILL MD PROCEDURE CODES FA211 ESTABILISHED PATIENT [facility] FACILITY CHARGE [id number] CURRENT MEDS W/DOSAGES DOCUMENTED [id number] PAIN ASSESS POS TOOL F/U PLAN DOC DISPOSITION & COMMUNICATION FOLLOW UP 4 WEEKS (REASON: F/UP TELEMED WITH DR Demarco IN 1 MONTH; REFERRING TO BASHIR HANSEN) ELECTRONICALLY SIGNED BY NICOLE GONSALES MD, MD ON 11/10/2019 AT 04:03 PM EDT DISCLAIMER : THIS IS A VISIT SUMMARY EXTRACTED FROM THE [employer] CHART. IT IS NOT A COPY OF THE [employer] PROGRESS NOTE. ADAM
== END ==
LOC: M PAIN 14:15
PROVIDERS: ATTEND Anesthesiology
DX: M96.1 Postlaminectomy syndrome, not elsewhere classified (principal); M51.16 Intervertebral disc disorders with radiculopathy, lumbar region

== ENCOUNTER 2020-11-23 11:01 | Inpatient (IN) | payer MEDICARE, OTHER ==
[~2020-11-23] VITALS: Ht 182.9 cm; Wt 112.3 kg
[~2020-11-23 11:01] MED LIST: GLIMEPIRIDE 2 MG TAB PO SCH
[2020-11-23 11:30] VITALS: BP 113/72
[2020-11-23] MEDS ORDERED: ONDANSETRON 4 MG TAB PO PRN (11:55)
[2020-11-23] MEDS ORDERED: ZYLO300T6 PO (13:09)
[2020-11-23] MEDS ORDERED: D31000TA2 PO (13:09)
[2020-11-23] MEDS ORDERED: INSUHUMDS SC (13:09)
[2020-11-23] MEDS ORDERED: TAMS1CAP17 PO (13:09)
[2020-11-23] MEDS ORDERED: GABA-282 PO (13:09)
[2020-11-23] MEDS ORDERED: FARX1TAB3 PO (13:09)
[2020-11-23] MEDS ORDERED: SENN-23 PO (13:09)
[2020-11-23] MEDS ORDERED: NUCY50TA19 PO (13:09)
[2020-11-23] MEDS ORDERED: LOVA40TA PO (13:09)
[2020-11-23] MEDS ORDERED: HEPA500023 SQ (13:09)
[2020-11-23] MEDS ORDERED: METF10004 PO (13:09)
[2020-11-23] MEDS ORDERED: LISI10TA22 PO (13:09)
[2020-11-23] MEDS ORDERED: COLA100C5 PO (13:09)
[2020-11-23] MEDS ORDERED: GLIM4TAB5 PO (13:09)
[2020-11-23] MEDS ORDERED: MIRA3350 PO (13:09)
[2020-11-23] MEDS ORDERED: NORT50CA PO (13:09)
[2020-11-23] MEDS ORDERED: CYCL-707 PO (13:09)
[2020-11-23 14:00] VITALS: BP 100/61
[2020-11-23] MEDS ORDERED: GLUCAGON INJ 1MG VIAL SC PRN (14:05)
[2020-11-23] MEDS ORDERED: GLUCOSE 4GM CHEW TABLET PO PRN (14:05)
[2020-11-23] MEDS ORDERED: DEXTROSE 50% 50 ML SYRINGE IV PRN (14:05)
[2020-11-23] MEDS: GABAPENTIN 300 MG CAP PO SCH ×2 (16:08→21:09)
[2020-11-23] MEDS: CYCLOBENZAPRINE 10MG TABLET PO SCH ×2 (16:08→21:08)
[2020-11-23] MEDS ORDERED: GLIMEPIRIDE 2 MG TAB PO SCH (16:22)
[2020-11-23 17:33] LABS: APPEARANCE, URINE TURBID (CLEAR); BACTERIA, URINE AUTO 1+ (NEGATIVE); BILIRUBIN, URINE AUTO NEGATIVE (NEGATIVE); BLOOD, URINE BLOOD NEGATIVE (NEGATIVE); COLOR, URINE AMBER (YELLOW); GLUCOSE, URINE (UA) AUTO NEGATIVE (NEGATIVE); KETONE, URINE AUTO TRACE mg/dL (NEGATIVE); LEUKOCYTE ESTERASE, URINE AUTO 3+ (NEGATIVE); NITRITE, URINE AUTO POSITIVE (NEGATIVE); PROTEIN, URINE AUTO 2+ mg/dL (NEGATIVE); RBC, URINE AUTO 0 /HPF (0-3); SQUAMOUS EPITHELIAL CELL UR AU 0 /HPF (0-6); UROBILINOGEN, URINE AUTO 0.2 mg/dL (0.0-2.0); WBC, URINE AUTO 4 /HPF (0-3)
[2020-11-23] MEDS: HumaLOG INSULIN (NovoLOG) PER UNIT SC SCH (17:36)
[2020-11-23] MEDS ORDERED: GLYCERIN ADULT SUPP PR PRN (17:45)
--- NOTE | 2020-11-23 18:47 | HPEPDOC ---
[employer] Note DATE OF ADMISSION: 11/23/2020 DATE OF SERVICE: 11/23/2020 TIME OF ADMISSION: Please refer to physician's admission order. 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 Neurogenic bladder. Diabetes. Peripheral neuropathy. Essential hypertension. Thoracic myelopathy. Neurogenic claudication due to lumbar spinal stenosis. Spondylolisthesis, lumbar region. Low back pain. Gait instability CHIEF COMPLAINT: Low back pain 8-01/28 Urgency, frequency, incontinence of urination client self cath. Low extremity weakness, pain slightly improving after last surgery. Insomnia secondary to pain HISTORY OF PRESENT ILLNESS: This is a 64 -year-old male who is status post lumbar fusion L3-[address] Daigle in 2012 , after falling from a truck at work in 2009 sustaining low back injury. He continued with postoperative neurogenic bowel and bladder requiring straight cath, and significant back and leg pain with consideration of placement of a dorsal column stimulator, however, further imaging noted T11-12 stenosis and he underwent elective T11-12 laminectomy, medial facetectomy and posterolateral instrumented fusion. Postoperative course complicated with ileus requiring NG tube placement for a gastric decompression, he has had significant pain and decreased mobility. Patient is felt to be stable. Has demonstrated early progress movements and motor control. Motor planning. Physical therapy, occupational therapy, and while allowing for improved transfers and is felt he would benefit from continued skilled PT, OT to further progress independence and safety with mobility tasks. Patient qualifies with functional and medical criteria for conference of inpatient rehabilitation including interdisciplinary care with PT, OT, rehabilitation nursing and rehabilitative physician management. . REVIEW OF SYSTEMS: The following is a completed review of systems and has been reviewed. Review of systems otherwise unremarkable. PAIN: Patient self reports no pain. EYES: No recent vision changes. EARS, NOSE, & THROAT: No throat pain, or dysphagia, or rhinorrhea. CARDIOVASCULAR: Denies chest pain or palpitations. PULMONARY: Denies shortness of breath. GASTROINTESTINAL: Improving constipation. Has had 30 lb intentional weight loss over last year GENITOURINARY: requires self cath, urgency and incontinence of bowel and bladder MUSCULOSKELETAL: chronic right shoulder girdle, neck, low back pain NEUROLOGICAL: paresthesias bilateral lower extremities HEMATOLOGICAL: non contributory SKIN: Notes his legs and feet were very blanched white until the surgery after which circulation seemed to have improved and they are warm and pink PSYCHIATRIC: Unremarkable. All other review of systems found to be negative. PAST MEDICAL HISTORY: Hypertension Diabetes. Chronic lumbosacral pain, bilateral lower extremity pain, weakness, neurogenic bowel and bladder status posts L3-5 laminectomy, fusion. PAST SURGICAL HISTORY: status post L3-5 laminectomy, fusion 2012 status post T11-12 laminectomy/fusion 11/11/2020 Colonoscopy with removal of benign polyps ALLERGIES: MRI dye MEDICATIONS: Please see below. FAMILY HISTORY: Mother 95 natural causes, Father 56 from suicide SOCIAL HISTORY: non- Smoker, no EtOH, lives in a 1 step entrance 2 story home, has involved and supportive girlfriend. DIET: Regular. PHYSICAL EXAMINATION: VITAL SIGNS: Please see below. GENERAL: Pleasant and cooperative appears in mild distress, pale. Alert and oriented times three. HEENT: PERRL. Extraocular movements intact right eye strabismus. Clear conjunctiva, no adenopathy or thyromegaly. Full cervical range of motion with tenderness and spasm into right shoulder girdle, upper trapezius. CARDIOVASCULAR: Regular rate and rhythm. No murmurs, rubs, or gallops. LUNGS: Clear to auscultation bilaterally. No wheezes. No rhonchi. ABDOMEN: Soft, nontender, mildly distended. Positive bowel sounds. Normal active bowel sounds. NEUROLOGICAL: Alert and oriented times three. Cranial nerves II through XII inta ct. Sensation grossly intact. Reflexes trace bilateral biceps, absent triceps, brachial radialis, patellar, Achilles tendon jerks. Sensation intact to pinprick bilateral upper and lower extremities. EXTREMITIES: 5 /5 parachute/combatant diver officer, elbow flexion, elbow extension, 4/5 left 5-/5 right knee extension, 4-/5 right 3/5 left foot dorsiflexion, plantar flexion. Distal erythema, no edema. SKIN: intact. Old healed midline lumbosacral incision, fresh thoracolumbar incision kristie removed. Right KAYLEY drain site. No drainage. No redness generalized tenderness thoracolumbar region with increased muscle tone. LABORATORY DATA: 11/18/2020. The CBC 7.8, hemoglobin 13.1, hematocrit 39. 11/16/2020, sodium 138, potassium 3.5, glucose 132, creatinine 0.72 Other results Please see below. IMAGING: Imaging documentation personally reviewed by record. 11/13/2020 XR Abdomen with gaseous distention suggesting ileus 11/15/2020 Mild right abdominal colonic constipation 11/17/2020 . X-ray abdomen, improvement in bowel distention. 11/17/2020, compared with prior studies 01/01/2020, status post posterior fusion T11-12 with intact hardware overlying postoperative changes. Prior posterior decompression fusion at L3 5 degree identified. FUNCTIONAL STATUS: Premorbid: Independent with all activities of daily life as well as mobility using bilateral crutches, straight cath for social continence On Admission: -Supervision to moderate assistance for lower body dressing, shower transfers, stairs. -. Moderate assistance for bathing, upper body dressing, bed chair and wheelchair transfers, toilet transfers, ambulation. - Set up assistance for grooming. - Independent for memory and problem solving. 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 Postoperative ileus, resolving. Neurogenic bladder. Neurogenic bowel Diabetes. Peripheral neuropathy. Paraparesis Essential hypertension. Thoracic myelopathy. Neurogenic claudication due to lumbar spinal stenosis. History of Spondylolisthesis, lumbar region. Low back pain. Gait instability. Myofascial pain syndrome. Insomnia. 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 Neurogenic bowel and bladder who p resents status post T11-12 laminectomy, medial facetectomy, fusion for comprehensive rehabilitation PLAN: 1. Rehab- PT/OT advance gait and ADLs, strengthen/stretch/maintain ROM all 4 limbs. We'll continue to work on timing pain medication with therapy in terventions to optimize possible capacity to participate. 2. Neuro- monitor and adjust medications as indicated for pain, bladder function 3. Ortho- chronic neck and low back pain with myofascial component. Transition to Baclofen in addition to Gabapentin, Nucynta usual home med unavailable, substitute post op pain management with Oxycodone/Tylenol, Lidoderm patch. Proceed with usual therapy modalities. 4. Cardiac- stable monitor -HTN -monitor and adjust medications -HLD-monitor and adjust medications 5. Resp -incentive spirometry, monitor for infection 6. Endo- hx of diabetes, SSI, diabetes education 7. - soft. Well check urine PVRs and usual bladder training see if possibly addition of baclofen and use of suppositories may help improve bowel and bladder management. 8. GI ppx- PPI, laxatives, maintain optimal bowel program, dietary consult to assist with ongoing weight loss plans POST ADMISSION PHYSICIAN EVALUATION: Medical and functional status: Description of medical status, medical assessment: As above. Rehabilitation diagnosis and current and prior co- morbid medical conditions as above. Risk of complications and plans to mitigate them as above. Description of functional status current status is as above. Prior status as above. Status compared to preadmission: There are no clinically significant differences between the patient's current status and the information described on the preadmission screening document. Treatment plan anticipated: Treatment plan is as described above. Required disciplines including physical therapy, occupational therapy, others as noted above]. Intensity of services: 3 hours a day, 6-7 days a week. Special considerations: There are no specific special or safety considerations that would likely preclude immediate implementation of an intensive rehabilitation program or subsequently influence the plan of care. ATTESTATION: Considering all the information above, it is my best judgment that this patient requires intensive rehabilitation therapy as described above and an inpatient hospital environment due to the complexity of nursing, medical, and rehabilitation needs required by the patient. Furthermore, this patient can reasonably be expected to participate in an benefit from an inpatient rehabilitation stay with an interdisciplinary team approach to the delivery of rehabilitation care under the direction and supervision of rehabilitation physician. PROGNOSIS: Excellent. ESTIMATED LENGTH OF STAY:7-10 days. PROJECTED DISCHARGE DESTINATION: Home with family support and any durable medical equipment required to increase functional safety and mobility. TIME SPENT COUNSELING AND COORDINATING INITIAL CARE: Greater than 60 minutes. This document is generated using speech recognition software which may result in grammatical, typographical and individual word errors. Vital Signs Vital Sign - Last 24 Hours 11/23/20 11/23/20 11:30 14:00 Temp 97.6 97.9 Pulse 96 109 Resp 20 20 B/P (MAP) 113/72 (86) 100/61 (74) Pulse Ox 98 96 O2 Delivery Room Air Room Air Laboratory Data Labs 24H Laboratory Tests 2 11/23/20 11:53: Bedside Glucose (Misc Panel) 208H 11/23/20 16:39: Bedside Glucose (Misc Panel) 193H 11/23/20 16:49: Urine Color SHAHRAM, Urine Appearance TURBIDH, Urine pH 8.0, Urine Specific [place] 1.020, Urine Protein 2+H, Urine Glucose (Auto)(UA) NEGATIVE, Urine Ketones (Auto) TRACEH, Urine Blood NEGATIVE, Urine Nitrite POSITIVE, Urine Bilirubin NEGATIVE, Urine Urobilinogen 0.2, Urine Leukocyte Esterase (Auto) 3+H, Urine WBC (Auto) 4H, Urine RBC (Auto) 0, Urine Hyaline Casts (Auto) 0, Urine Bacteria (Auto) 1+H, Urine Squamous Epithelial Cells 0, Urine Sperm (Auto) FSBS Laboratory Tests Test 11/23/20 11:53 11/23/20 16:39 Range/Units Bedside Glucose (Misc Panel) 208 193 80-115 MG/DL Home Medications Scheduled Allopurinol (Zyloprim) 300 Mg Tablet, 300 MG PO DAILY, (Reported) Cholecalciferol (Vitamin D3) (Vitamin D3) 1,000 Unit Tablet, 1,000 UNITS PO DAILY, (Reported) Cyclobenzaprine HCl (Cyclobenzaprine HCl) 10 Mg Tablet, 10 MG PO TID, (Reported) STARTED AT [facility] Dapagliflozin Propanediol (Farxiga) 10 Mg Tablet, 10 MG PO DAILY, (Reported) Docusate Sodium (Colace) 100 Mg Capsule, 100 MG PO BID, (Reported) Gabapentin (Gabapentin) 300 Mg Capsule, 900 MG PO TID, (Reported) Glimepiride (Glimepiride) 4 Mg Tablet, 4 MG PO DAILY, (Reported) Heparin Sodium,Porcine (Heparin Sodium) 5,000 Unit/1 Ml Syringe, 5,000 UNIT SQ B ID, (Reported) STARTED AT [facility] Insulin Human Lispro (Humalog) 100 Unit/1 Ml Vial, 1 DOSE SC AC, (Reported) PER SLIDING SCALE-STARTED AT [facility] Lisinopril (Lisinopril) 10 Mg Tablet, 10 MG PO DAILY, (Reported) DOSE DECREASED FROM 20MG TO 10MG AT [facility] Lovastatin (Lovastatin) 40 Mg Tablet, 40 MG PO DAILY, (Reported) Metformin HCl (Metformin HCl) 1,000 Mg Tablet, 1,000 MG PO BID, (Reported) Nortriptyline HCl (Nortriptyline HCl) 50 Mg Capsule, 50 MG PO QHS, (Reported) STARTED AT [facility] Polyethylene Glycol 3350 (Miralax) 119 Gm Powder, 17 GM PO DAILY, (Reported) STARTED AT [facility] Sennosides/Docusate Sodium (Senna-S Tablet) 1 Each Tablet, 2 TAB PO QHS, (Reported) Tamsulosin Hcl (Tamsulosin HCl) 0.4 Mg Capsule, 0.4 MG PO DAILY, (Reported) Scheduled PRN Tapentadol HCl (Nucynta) 50 Mg Tablet, 50 MG PO BID PRN for PAIN LEVEL 6-10, (Reported) MAY TAKE 1 TAB 2-3 TIMES DAILY Allergies Coded Allergies: Contrast Media (Verified Adverse Reaction, Mild, nausea/vomiting, 11/23/20) A-FIB/CHADSVASC A-FIB History Current/History of A-Fib/PAF?: No Current PO Anticoag Therapy: No Age/Risk Factor Scoring CHADSVASC: CHADSVASC Response (Comments) Value Age Risk Factor Age < 65 years old 0 Gender Risk Factor Male 0 Hx of CHF No 0 Hx of HTN Yes 1 Hx of Stroke/TIA/or VTE No 0 Hx of Diabetes Yes 1 Hx of Vascular Disease No 0 Total 2 Treatment Treatment ordered: NONE Reason Anticoagulant not given: Other Other reason anticoagulant not: Post op MERT GUTIERREZ MD Nov 23, 2020 18:47
[2020-11-23 20:00] VITALS: BP 124/57
[2020-11-23] MEDS: ACETAMINOPHEN 650MG ER TAB (TYLENOL ARTHRITIS) PO SCH (21:08)
[2020-11-23] MEDS: NORTRIPTYLINE 25 MG CAP PO SCH (21:08)
[2020-11-23] MEDS: metFORMIN (GLUCOPHAGE) 1000 MG TABLET PO SCH (21:09)
[2020-11-23] MEDS: HEPARIN SOD (PORCINE) 5000UNITS/ML 1ML VIAL/SYRINGE SQ SCH (21:09)
[2020-11-23] MEDS: SENOKOT S TAB PO SCH (21:09)
[2020-11-23] MEDS: DOCUSATE SODIUM 100MG CAPSULE PO SCH (21:09)
[2020-11-24] MEDS: ACETAMINOPHEN 650MG ER TAB (TYLENOL ARTHRITIS) PO SCH ×3 (05:55→21:13)
[2020-11-24 06:00] VITALS: BP 125/60
[2020-11-24 06:43] LABS: BASO # 0.1 10^3/uL (0.0-0.2); BASO % 0.9 % (0.0-1.0); EOS # 0.2 10^3/uL (0.0-0.5); EOS % 1.6 % (0.0-3.0); HEMATOCRIT 45.1 % (42.0-52.0); HEMOGLOBIN 14.7 g/dl (13.5-17.5); LYMPH # 1.8 10^3/uL (1.5-5.0); LYMPH % 16.5 % (24.0-44.0); MEAN CORPUSCULAR HEMOGLOBIN 31.5 pg (27.0-33.0); MEAN CORPUSCULAR HGB CONC 32.6 g/dl (32.0-36.5); MEAN CORPUSCULAR VOLUME 96.6 fl (80.0-96.0); MONO % 9.4 % (2.0-8.0); NEUTROPHILS # 7.7 10^3/uL (1.5-8.5); NEUTROPHILS % 70.8 % (36.0-66.0); PLATELET COUNT, AUTOMATED 332 10^3/uL (150-450); RED BLOOD COUNT 4.67 10^6/uL (4.30-6.10); WHITE BLOOD COUNT 10.9 10^3/uL (4.0-10.0)
[2020-11-24 07:15] LABS: ALBUMIN 3.4 GM/DL (3.2-5.2); ALT/SGPT 42 U/L (12-78); BILIRUBIN,TOTAL 0.8 MG/DL (0.2-1.0); BLOOD UREA NITROGEN 17 MG/DL (7-18); CALCIUM LEVEL 9.4 MG/DL (8.8-10.2); CARBON DIOXIDE LEVEL 29 MEQ/L (21-32); CHLORIDE LEVEL 100 MEQ/L (98-107); CREATININE FOR GFR 0.97 MG/DL (0.70-1.30); GLOMERULAR FILTRATION RATE > 60.0 (>49); GLUCOSE, FASTING 171 MG/DL (70-100); POTASSIUM SERUM 4.8 MEQ/L (3.5-5.1); SODIUM LEVEL 136 MEQ/L (136-145); TOTAL PROTEIN 7.1 GM/DL (6.4-8.2)
[2020-11-24] MEDS: HumaLOG INSULIN (NovoLOG) PER UNIT SC SCH ×4 (08:37→21:00)
[2020-11-24] MEDS: HEPARIN SOD (PORCINE) 5000UNITS/ML 1ML VIAL/SYRINGE SQ SCH ×2 (08:38→21:13)
[2020-11-24] MEDS: LIDOCAINE 5% (LIDODERM) PATCH TD SCH (08:38)
[2020-11-24] MEDS: allopurinoL 300 MG TAB PO SCH (08:39)
[2020-11-24] MEDS: CYCLOBENZAPRINE 10MG TABLET PO SCH ×3 (08:39→21:13)
[2020-11-24] MEDS: BACLOFEN 10 MG TAB PO SCH (08:39)
[2020-11-24] MEDS: GABAPENTIN 300 MG CAP PO SCH ×3 (08:39→21:13)
[2020-11-24] MEDS: VITAMIN D 1,000 INTERNATIONAL UNITS TABLET PO SCH (08:40)
[2020-11-24] MEDS: DOCUSATE SODIUM 100MG CAPSULE PO SCH ×2 (08:40→21:00)
[2020-11-24] MEDS: SIMVASTATIN 40 MG TAB PO SCH (08:40)
[2020-11-24] MEDS: metFORMIN (GLUCOPHAGE) 1000 MG TABLET PO SCH ×2 (08:40→17:23)
[2020-11-24] MEDS: GLIMEPIRIDE 2 MG TAB PO SCH (08:40)
[2020-11-24] MEDS: TAMSULOSIN 0.4 MG CAP PO SCH (08:40)
[2020-11-24] MEDS: MULTIVITAMINS/MINERALS THERAP 1 TAB PO SCH (08:41)
[2020-11-24] MEDS: MIRALAX *UNIT DOSE* 17GM PACKET PO SCH (08:41)
--- NOTE | 2020-11-24 10:35 | HPEPDOC ---
[facility] Medical History & Physical Date of Admission Nov 23, 2020 Date of Service: Nov 24, 2020 History and Physical CHIEF COMPLAINT: Deconditioning HISTORY OF PRESENT ILLNESS: 64M with PMHx as indicated, and s/p extensive spinal surgeries s/p trauma, complicated with postoperative neurogenic bowel and bladder requiring straight cath, and significant back and leg pain with consideration of placement of a dorsal column stimulator. Further complicated with T11-12 stenosis s/p elective T11-12 laminectomy, medial facetectomy and posterolateral instrumented fusion. Postoperative course complicated with ileus requiring NG tube placement for a gastric decompression. Patient now with significant weakness, deconditioning and gait instability. This morning he has no new medical complaints. He denies chest pain, shortness of breath, abdominal pain, nausea, vomiting, diarrhea, headaches, changes in vision, depressed mood. PAST MEDICAL HISTORY: #HTN #DM #chronic lower back pain s/p L3-L5 laminectomy/fusion 2012 #neurogenic bladder/bowel #Peripheral neuropathy. SOCIAL HISTORY: Reviewed and noncontributory. FAMILY HISTORY: Father at age 56 from suicide. Mother at age 95 from natural causes. ALLERGIES: Please see below. REVIEW OF SYSTEMS: Negative except as per HPI. HOME MEDICATIONS: Please see below. PHYSICAL EXAMINATION: VITAL SIGNS: See below GENERAL APPEARANCE: NAD, sitting comfortably at edge of bed HEENT: NC/AT, EOMI CARDIOVASCULAR: +S1S2, RRR LUNGS: CTA B/L ABDOMEN: soft, NT, +BS EXTREMITIES: no edema NEUROLOGICAL: no gross focal deficits PSYCHIATRIC: AAOx3 LABORATORY DATA: See below. MICROBIOLOGY: Please see below. A/P: 64M with PMHx as indicated, and s/p extensive spinal surgeries s/p trauma, complicated with postoperative neurogenic bowel and bladder requiring straight cath, and significant back and leg pain with consideration of placement of a dorsal column stimulator. Further complicated with T11-12 stenosis s/p elective T11-12 laminectomy, medial facetectomy and posterolateral instrumented fusion. Postoperative course complicated with ileus requiring NG tube placement for a gastric decompression. Patient now with significant weakness, deconditioning and gait instability. #generalized deconditioning - follow as per primary team - PMR #HTN - lisinopril #asymptomatic bacteruria - patient states he has no symptoms of UTI, and has had UTI's in the past, and is aware of typical symptoms #DM - metformin #DLP - simvastatin #chronic lower back pain s/p L3-L5 laminectomy/fusion 2012 #neurogenic bladder/bowel #Peripheral neuropathy. #DVT prophylaxis - heparin SC Vital Signs Vital Signs Date Time Temp Pulse Resp B/P (MAP) Pulse Ox O2 Delivery O2 Flow Rate FiO2 11/24/20 08:40 128/60 11/24/20 06:00 96.9 89 15 93 Room Air Laboratory Data Labs 24H Laboratory Tests 2 11/23/20 11:53: Bedside Glucose (Misc Panel) 208H 11/23/20 16:39: Bedside Glucose (Misc Panel) 193H 11/23/20 16:49: Urine Color SHAHRAM, Urine Appearance TURBIDH, Urine pH 8.0, Urine Specific [place] 1.020, Urine Protein 2+H, Urine Glucose (Auto)(UA) NEGATIVE, Urine Ketones (Auto) TRACEH, Urine Blood NEGATIVE, Urine Nitrite POSITIVE, Urine Bilirubin NEGATIVE, Urine Urobilinogen 0.2, Urine Leukocyte Esterase (Auto) 3+H, Urine WBC (Auto) 4H, Urine RBC (Auto) 0, Urine Hyaline Casts (Auto) 0, Urine Bacteria (Auto) 1+H, Urine Squamous Epithelial Cells 0, Urine Sperm (Auto) 11/23/20 21:09: Bedside Glucose (Misc Panel) 190H 11/24/20 06:31: Immature Granulocyte % (Auto) 0.8, Neutrophils (%) (Auto) 70.8H, Lymphocytes (%) (Auto) 16.5L, Monocytes (%) (Auto) 9.4H, Eosinophils (%) (Auto) 1.6, Basophils (%) (Auto) 0.9, Neutrophils # (Auto) 7.7, Lymphocytes # (Auto) 1.8, Monocytes # (Auto) 1.0H, Eosinophils # (Auto) 0.2, Basophils # (Auto) 0.1, Nucleated Red Blood Cells % (auto) 0.0, Anion Gap 7L, Glomerular Filtration Rate > 60.0, Calcium Level 9.4, Total Bilirubin 0.8, Aspartate Amino Transf (AST/SGOT) 14, Alanine Aminotransferase (ALT/SGPT) 42, Alkaline Phosphatase 107, Total Protein 7.1, Albumin 3.4, Albumin/Globulin Ratio 0.9 11/24/20 06:32: Bedside Glucose (Misc Panel) 178H CBC/BMP Laboratory Tests 11/24/20 06:31 Home Medications Scheduled Allopurinol (Zyloprim) 300 Mg Tablet, 300 MG PO DAILY Cholecalciferol (Vitamin D3) (Vitamin D3) 1,000 Unit Tablet, 1,000 UNITS PO DAILY Cyclobenzaprine HCl (Cyclobenzaprine HCl) 10 Mg Tablet, 10 MG PO TID STARTED AT [facility] Dapagliflozin Propanediol (Farxiga) 10 Mg Tablet, 10 MG PO DAILY Docusate Sodium (Colace) 100 Mg Capsule, 100 MG PO BID Gabapentin (Gabapentin) 300 Mg Capsule, 900 MG PO TID Glimepiride (Glimepiride) 4 Mg Tablet, 4 MG PO DAILY Heparin Sodium,Porcine (Heparin Sodium) 5,000 Unit/1 Ml Syringe, 5,000 UNIT SQ BID STARTED AT [facility] Insulin Human Lispro (Humalog) 100 Unit/1 Ml Vial, 1 DOSE SC AC PER SLIDING SCALE-STARTED AT [facility] Lisinopril (Lisinopril) 10 Mg Tablet, 10 MG PO DAILY DOSE DECREASED FROM 20MG TO 10MG AT [facility] Lovastatin (Lovastatin) 40 Mg Tablet, 40 MG PO DAILY Metformin HCl (Metformin HCl) 1,000 Mg Tablet, 1,000 MG PO BID Nortriptyline HCl (Nortriptyline HCl) 50 Mg Capsule, 50 MG PO QHS STARTED AT [facility] Polyethylene Glycol 3350 (Miralax) 119 Gm Powder, 17 GM PO DAILY STARTED AT [facility] Sennosides/Docusate Sodium (Senna-S Tablet) 1 Each Tablet, 2 TAB PO QHS Tamsulosin Hcl (Tamsulosin HCl) 0.4 Mg Capsule, 0.4 MG PO DAILY Scheduled PRN Tapentadol HCl (Nucynta) 50 Mg Tablet, 50 MG PO BID PRN for PAIN LEVEL 6-10 MAY TAKE 1 TAB 2-3 TIMES DAILY Allergies Coded Allergies: Contrast Media (Verified Adverse Reaction, Mild, nausea/vomiting, 11/23/20) A-FIB/CHADSVASC A-FIB History Current/History of A-Fib/PAF?: No Age/Risk Factor Scoring CHADSVASC: CHADSVASC Response (Comments) Value Age Risk Factor Age < 65 years old 0 Gender Risk Factor Male 0 Hx of CHF No 0 Hx of HTN Yes 1 Hx of Stroke/TIA/or VTE No 0 Hx of Diabetes Yes 1 Hx of Vascular Disease No 0 Total 2 LALDIN,WILLY S. MD Nov 24, 2020 10:35
[2020-11-24 14:00] VITALS: BP 106/63
--- NOTE | 2020-11-24 16:52 | IPNPDOC ---
PM&R Progress Note DATE OF SERVICE: Nov 24, 2020 Con[employer] Former Progress Note DATE OF ADMISSION: Nov 23, 2020 at 11:13 DATE OF SERVICE: 11/24/2020 TIME OF ADMISSION: Please refer to physician's admission order. 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 Neurogenic bladder. Diabetes. Peripheral neuropathy. Essential hypertension. Thoracic myelopathy. Neurogenic claudication due to lumbar spinal stenosis. Spondylolisthesis, lumbar region. Low back pain. Gait instability CHIEF COMPLAINT: Low back pain -01/28 Urgency, frequency, incontinence of urination client self caths. Low extremity weakness, pain slightly improving after last surgery. Insomnia secondary to pain HISTORY OF PRESENT ILLNESS: This is a 64 -year-old male who is status post lumbar fusion L3-[address] Daigle in 2012, after falling from a truck at work in 2009 sustaining low back injury. He continued with postoperative neurogenic bowel and bladder requiring straight cath, and significant back and leg pain with consideration of placement of a dorsal column stimulator, however, further imaging noted T11-12 stenosis and he underwent elective T11-12 laminectomy, medial facetectomy and posterolateral instrumented fusion. Postoperative course complicated with ileus requiring NG tube placement for a gastric decompression, he has had significant pain and decreased mobility. Patient is felt to be stable. Has demonstrated ea rly progress movements and motor control. Motor planning. Physical therapy, occupational therapy, and while allowing for improved transfers and is felt he would benefit from continued skilled PT, OT to further progress independence and safety with mobility tasks. Patient qualifies with functional and medical criteria for conference of inpatient rehabilitation including interdisciplinary care with PT, OT, rehabilitation nursing and rehabilitative physician management. 11.24.2020 Night getting adjusted to the unit with continued pain did have a bowel movement yesterday. He is feeling encouraged with return of sensation in lower extremities and slightly reduced pain, low back pain persists. Discussed with OT to include attention to the myofascial component on the cervical, thoracic and lumbosacral region. In addition to the radicular and myelopathic issues. REVIEW OF SYSTEMS: The following is a completed review of systems and has been reviewed. Review of systems otherwise unremarkable. PAIN: Patient notes pain level 8-9.5 out of 10 EYES: No recent vision changes. EARS, NOSE, & THROAT: No throat pain, or dysphagia, or rhinorrhea. CARDIOVASCULAR: Denies chest pain or palpitations. PULMONARY: Denies shortness of breath. GASTROINTESTINAL: Denies constipation/diarrhea crrently, status post recent episode of ileus with obstipation GENITOURINARY: requires self cath, urgency and incontinence of bowel and bladder MUSCULOSKELETAL: chronic right shoulder girdle, neck, low back pain NEUROLOGICAL: paresthesias bilateral lower extremities HEMATOLOGICAL: non contributory SKIN: Notes his legs and feet were very blanched white until the surgery after which circulation seemed to have improved and they are warm and pink now PSYCHIATRIC: Unremarkable. All other review of systems found to be negative. ALLERGIES: MRI dye DIET: Regular. PHYSICAL EXAMINATION: VITAL SIGNS: Please see below. GENERAL: Pleasant and cooperative appears in less distress, pale. Alert and oriented times three. HEENT: PERRL. Extraocular movements intact right eye strabismus. Clear conjunctiva, no adenopathy or thyromegaly. Full cervical range of motion with tenderness and spasm into right shoulder girdle, upper trapezius. CARDIOVASCULAR: Regular rate and rhythm. No murmurs, rubs, or gallops. LUNGS: Clear to auscultation bilaterally. No wheezes. No rhonchi. ABDOMEN: Soft, nontender, mildly distended. Positive bowel sounds. Normal active bowel sounds. NEUROLOGICAL: Alert and oriented times three. Cranial nerves II through XII grossly intact. Sensation grossly intact. EXTREMITIES: 5 /5 costume draper, elbow flexion, elbow extension, 4/5 left 5-/5 right knee extension, 4-/5 right 3/5 left foot dorsiflexion, plantar flexion. Distal erythema, no edema. SKIN: intact. Old healed midline lumbosacral incision, fresh thoracolumbar incision kristie removed. Right KAYLEY drain site. No drainage. No redness, there is tenderness thoracolumbar region with increased muscle tone. LABORATORY DATA: 11/18/2020. The CBC 7.8, hemoglobin 13.1, hematocrit 39. 11/16/2020, sodium 138, potassium 3.5, glucose 132, creatinine 0.72 Other results Please see below. IMAGING: Imaging documentation personally reviewed by record. 11/13/2020 XR Abdomen with gaseous distention suggesting ileus 11/15/2020 Mild right abdominal colonic constipation 11/17/2020 . X-ray abdomen, improvement in bowel distention. 11/17/2020, compared with prior studies 01/01/2020, status post posterior fusion T11-12 with intact hardware overlying postoperative changes. Prior posterior decompression fusion at L3 5 degree identified. FUNCTIONAL STATUS: Premorbid: Independent with all activities of daily life as well as mobility using bilateral crutches, straight cath for social continence On Admission: -Supervision to moderate assistance for lower body dressing, shower transfers, stairs. -. Moderate assistance for bathing, upper body dressing, bed chair and wheelchair transfers, toilet transfers, ambulation. - Set up assistance for grooming. - Independent for memory and problem solving. 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 Postoperative ileus, resolving. Neurogenic bladder. Neurogenic bowel Diabetes. Peripheral neuropathy. Paraparesis Essential hypertension. Thoracic myelopathy. Neurogenic claudication due to lumbar spinal stenosis. History of Spondylolisthesis, lumbar region. Low back pain. Gait instability. Myofascial pain syndrome. Insomnia. 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 Neurogenic bowel and bladder who presents status post T11-12 laminectomy, medial facetectomy, fusion for comprehensive rehabilitation PLAN: 1. Rehab- PT/OT advance gait and ADLs, strengthen/stretch/maintain ROM all 4 limbs. We'll continue to work on timing pain medication with therapy interventions to optimize possible capacity to participate. Bilateral AFOS and lumbar support for severe kyphosis and stooped posture. 2. Neuro- monitor and adjust medications as indicated for pain, bladder function 3. Ortho- chronic neck and low back pain with myofascial component. Transition to Baclofen in addition to Gabapentin, Nucynta usual home med unavailable, substitute post op pain management with Oxycodone/Tylenol, Lidoderm patch. Proceed with usual therapy modalities. 4. Cardiac- stable monitor -HTN -monitor and adjust medications -HLD-monitor and adjust medications 5. Resp -incentive spirometry, monitor for infection 6. Endo- hx of diabetes, SSI, diabetes education 7. - soft. Well check urine PVRs and usual bladder training see if possibly addition of baclofen and use of suppositories may help improve bowel and bladder management. 8. GI ppx- PPI, laxatives, maintain optimal bowel program PROGNOSIS: Excellent. ESTIMATED LENGTH OF STAY:7-10 days. PROJECTED DISCHARGE DESTINATION: Home with family support and any durable medical equipment required to increase functional safety and mobility. TIME SPENT COUNSELING AND COORDINATING INITIAL CARE: Greater than 30minutes. This document is generated using speech recognition software which may result in grammatical, typographical and individual word errors. Allergies Coded Allergies: Contrast Media (Verified Adverse Reaction, Mild, nausea/vomiting, 11/23/20) Vital Signs Vital Signs Date Time Temp Pulse Resp B/P (MAP) Pulse Ox O2 Delivery O2 Flow Rate FiO2 11/24/20 14:00 97.8 103 19 106/63 (77) 96 Room Air Laboratory Data CBC/BMP Laboratory Tests 11/24/20 06:31 Labs 24H Laboratory Tests 2 11/23/20 21:09: Bedside Glucose (Misc Panel) 190H 11/24/20 06:31: Immature Granulocyte % (Auto) 0.8, Neutrophils (%) (Auto) 70.8H, Lymphocytes (%) (Auto) 16.5L, Monocytes (%) (Auto) 9.4H, Eosinophils (%) (Auto) 1.6, Basophils (%) (Auto) 0.9, Neutrophils # (Auto) 7.7, Lymphocytes # (Auto) 1.8, Monocytes # (Auto) 1.0H, Eosinophils # (Auto) 0.2, Basophils # (Auto) 0.1, Nucleated Red Blood Cells % (auto) 0.0, Anion Gap 7L, Glomerular Filtration Rate > 60.0, Calcium Level 9.4, Total Bilirubin 0.8, Aspartate Amino Transf (AST/SGOT) 14, Alanine Aminotransferase (ALT/SGPT) 42, Alkaline Phosphatase 107, Total Protein 7.1, Albumin 3.4, Albumin/Globulin Ratio 0.9 11/24/20 06:32: Bedside Glucose (Misc Panel) 178H 11/24/20 11:44: Bedside Glucose (Misc Panel) 106 11/24/20 14:25: Bedside Glucose (Misc Panel) 94 11/24/20 16:33: Bedside Glucose (Misc Panel) 157H Current Medications Current Medications Current Medications Medications (Trade) Dose Ordered Sig/Adela Route PRN Reason Start Time Stop Time Status Last Admin Dose Admin Acetaminophen (Tylenol Arthritis Er) 650 mg Q8H PO 11/23/20 22:00 11/24/20 14:17 Allopurinol (Zyloprim) 300 mg DAILY PO 11/24/20 09:00 11/24/20 08:39 Baclofen (Lioresal) 10 mg DAILY PO 11/24/20 09:00 11/24/20 08:39 Cyclobenzaprine HCl (Flexeril) 10 mg TID PO 11/23/20 16:00 11/24/20 16:20 Dextrose (Dextrose 50%) 25 ml ASDIRECTED PRN IV SEE LABEL COMMENTS 11/23/20 14:05 Docusate Sodium (Colace) 100 mg BID PO 11/23/20 21:00 11/24/20 08:40 Gabapentin (Neurontin) 900 mg TID PO 11/23/20 16:00 11/24/20 16:21 Glimepiride (Amaryl) 4 mg DAILY PO 11/23/20 09:00 11/23/20 16:24 DC Glimepiride (Amaryl) 4 mg DAILY@0600 PO 11/23/20 16:22 Cancel Glimepiride (Amaryl) 4 mg DAILY@0800 PO 11/24/20 08:00 11/24/20 08:40 Glucagon (Glucagon) 1 mg ASDIRECTED PRN SC SEE LABEL COMMENTS 11/23/20 14:05 Glucose (Glucose) 16 GM ASDIRECTED PRN PO SEE LABEL COMMENTS 11/23/20 14:05 Glycerin (Glycerin Adult Suppository) 1 ea DAILYPRN PRN [place] CONSTIPATION 11/23/20 17:45 Heparin Sodium (Porcine) (Heparin) 5,000 units BID SQ 11/23/20 21:00 11/24/20 08:38 Home Med (Med Rec Complete!) ASDIRECTED XX 11/23/20 13:10 11/23/20 13:20 DC Insulin Human Lispro (HumaLOG INSULIN) See Protocol Table AC SC 11/23/20 17:30 11/24/20 11:50 Insulin Human Lispro (HumaLOG INSULIN) See Protocol Table QHS SC 11/24/20 21:00 Lidocaine (Lidoderm Patch) 1 patch DAILY TD 11/24/20 09:00 11/24/20 08:38 Lisinopril (Prinivil) 10 mg DAILY PO 11/24/20 09:00 11/24/20 08:40 Metformin HCl (Glucophage) 1,000 mg BID PO 11/23/20 21:00 11/24/20 10:28 DC 11/24/20 08:40 Metformin HCl (Glucophage) 1,000 mg BID@0800,1800 PO 11/24/20 18:00 Multivitamins (Theragram-M) 1 tab DAILY PO 11/24/20 09:00 11/24/20 08:41 Non-Formulary Medication ( See Comment Field Below ) REMOVE LIDODERM PATCH DAILY@21 XX 11/24/20 21:00 Nortriptyline HCl (Pamelor) 50 mg QHS PO 11/23/20 21:00 11/23/20 21:08 Ondansetron HCl (Zofran) 4 mg Q6HP PRN PO NAUSEA 11/23/20 11:55 Oxycodone HCl (Roxicodone, Oxyir) 10 mg Q8H PRN PO SEVERE PAIN (PS 8-10) 11/23/20 14:05 Polyethylene Glycol (Miralax) 1 pkt DAILY PO 11/24/20 09:00 11/24/20 08:41 Senna/Docusate Sodium (Senokot S) 2 tab QHS PO 11/23/20 21:00 11/23/20 21:09 Simvastatin (Zocor) 40 mg DAILY PO 11/24/20 09:00 11/24/20 08:40 Tamsulosin HCl (Flomax) 0.4 mg DAILY PO 11/24/20 09:00 11/24/20 08:40 Vitamin D (Vitamin D) 1,000 units DAILY PO 11/24/20 09:00 11/24/20 08:40 MERT GUTIERREZ MD Nov 24, 2020 16:52
[2020-11-24 20:00] VITALS: BP 117/63
[2020-11-24] MEDS: SENOKOT S TAB PO SCH (21:00)
[2020-11-24] MEDS: NORTRIPTYLINE 25 MG CAP PO SCH (21:13)
[2020-11-24] MEDS: **NOTE PATIENT COMMENT** MISC XX SCH (21:15)
[2020-11-25 05:00] VITALS: BP 101/63
[2020-11-25] MEDS: ACETAMINOPHEN 650MG ER TAB (TYLENOL ARTHRITIS) PO SCH ×3 (05:28→20:50)
[2020-11-25] MEDS: CYCLOBENZAPRINE 10MG TABLET PO SCH (07:51)
[2020-11-25] MEDS: MULTIVITAMINS/MINERALS THERAP 1 TAB PO SCH (07:52)
[2020-11-25] MEDS: HumaLOG INSULIN (NovoLOG) PER UNIT SC SCH ×4 (07:52→20:48)
[2020-11-25] MEDS: LIDOCAINE 5% (LIDODERM) PATCH TD SCH (07:52)
[2020-11-25] MEDS: VITAMIN D 1,000 INTERNATIONAL UNITS TABLET PO SCH (07:53)
[2020-11-25] MEDS: SIMVASTATIN 40 MG TAB PO SCH (07:53)
[2020-11-25] MEDS: TAMSULOSIN 0.4 MG CAP PO SCH (07:53)
[2020-11-25] MEDS: metFORMIN (GLUCOPHAGE) 1000 MG TABLET PO SCH ×2 (07:53→17:22)
[2020-11-25] MEDS: HEPARIN SOD (PORCINE) 5000UNITS/ML 1ML VIAL/SYRINGE SQ SCH ×2 (07:53→20:47)
[2020-11-25] MEDS: DOCUSATE SODIUM 100MG CAPSULE PO SCH ×2 (07:53→20:46)
[2020-11-25] MEDS: allopurinoL 300 MG TAB PO SCH (07:54)
[2020-11-25] MEDS: GLIMEPIRIDE 2 MG TAB PO SCH (07:54)
[2020-11-25] MEDS: GABAPENTIN 300 MG CAP PO SCH ×3 (07:54→20:46)
[2020-11-25] MEDS: BACLOFEN 10 MG TAB PO SCH ×2 (07:54→20:46)
[2020-11-25] MEDS: MIRALAX *UNIT DOSE* 17GM PACKET PO SCH (07:55)
[2020-11-25 08:00] VITALS: BP 147/66
--- NOTE | 2020-11-25 10:56 | IPNPDOC ---
PM&R Progress Note DATE OF SERVICE: Nov 25, 2020 [employer] Progress Note DATE OF ADMISSION: Nov 23, 2020 at 11:13 DATE OF SERVICE: 11/24/2020 TIME OF ADMISSION: Please refer to physician's admission order. 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 Neurogenic bladder. Diabetes. Peripheral neuropathy. Essential hypertension. Thoracic myelopathy. Neurogenic claudication due to lumbar spinal stenosis. Spondylolisthesis, lumbar region. Low back pain. Gait instability. Myoclonus CHIEF COMPLAINT: Low back pain 8-01/28 Urgency, frequency, incontinence of urination client self caths. Low extremity weakness, pain slightly improving after last surgery. Insomnia secondary to pain 7.01.08 Mild recurrence of right lower extremity spontaneous jumping awakening him at night HISTORY OF PRESENT ILLNESS: This is a 64 -year-old male who is status post lumbar fusion L3-[address] Daigle in 2012, after falling from a truck at work in 2009 sustaining low back injury. He continued with postoperative neurogenic bowel and bladder requiring straight cath, and significant back and leg pain with consideration of placement of a dorsal column stimulator, however, further imaging noted T11-12 stenosis and he underwent elective T11-12 laminectomy, medial facetectomy and posterolateral instrumented fusion. Postoperative course complicated with ileus requiring NG tube placement for a gastric decompression, he has had significant pain and decreased mobility. Patient is felt to be stable. Has demonstrated early progress movements and motor control. Motor planning. Physical therapy, occupational therapy, and while allowing for improved transfers and is felt he would benefit from continued skilled PT, OT to further progress independence and safety with mobility tasks. Patient qualifies with functional and medical criteria for conference of inpatient rehabilitation including interdisciplinary care with PT, OT, rehabilitation nursing and rehabilitative physician management. 11.24.2020 Night getting adjusted to the unit with continued pain did have a bowel movement yesterday. He is feeling encouraged with return of sensation in lower extremities and slightly reduced pain, low back pain persists. Discussed with OT to include attention to the myofascial component on the cervical, thoracic and lumbosacral region. In addition to the radicular and myelopathic issues. 01/07/2021 The patient notes increasing urinary challenges different from before requesting urology follow-up. He notes increased cloudiness and difficulty with self cath. He also states that last night he had an episode where his right leg started jumping this had occurred nightly before the last surgery and had started to stan post operatively. REVIEW OF SYSTEMS: The following is a completed review of systems and has been reviewed. Review of systems otherwise unremarkable. PAIN: Patient notes pain level 7-9.5 out of 10, Lidoderm patch, helping lumbosacral pain EYES: No recent vision changes. EARS, NOSE, & THROAT: No throat pain, or dysphagia, or rhinorrhea. CARDIOVASCULAR: Denies chest pain or palpitations. PULMONARY: Denies shortness of breath. GASTROINTESTINAL: Denies constipation/diarrhea crrently, status post recent episode of ileus with obstipation GENITOURINARY: requires self cath, urgency and incontinence of bowel and bladder MUSCULOSKELETAL: chronic right shoulder girdle, neck, low back pain NEUROLOGICAL: paresthesias bilateral lower extremities, recent recurrent myoclonic jerks. Right lower extremity HEMATOLOGICAL: non contributory SKIN: Notes his legs and feet were very blanched white until the surgery after which circulation seemed to have improved and they are warm and pink now PSYCHIATRIC: Unremarkable. All other review of systems found to be negative. ALLERGIES: MRI dye DIET: Regular. PHYSICAL EXAMINATION: VITAL SIGNS: Please see below. GENERAL: Pleasant and cooperative appears in less distress, pale. Alert and oriented times three. HEENT: PERRL. Extraocular movements intact right eye strabismus. Clear conjunc tiva, no adenopathy or thyromegaly. Full cervical range of motion with tenderness and spasm into right shoulder girdle, upper trapezius. CARDIOVASCULAR: Regular rate and rhythm. No murmurs, rubs, or gallops. LUNGS: Clear to auscultation bilaterally. No wheezes. No rhonchi. ABDOMEN: Soft, nontender, mildly distended. Positive bowel sounds. Normal active bowel sounds. NEUROLOGICAL: Alert and oriented times three. Cranial nerves II through XII grossly intact. Sensation grossly intact. EXTREMITIES: 5 /5 inspectors and regulatory officers, elbow flexion, elbow extension, 4/5 left 5-/5 right knee extension, 4-/5 right 3/5 left foot dorsiflexion, plantar flexion. Distal erythema, no edema. SKIN: intact. Old healed midline lumbosacral incision, fresh thoracolumbar incision kristie removed. Right KAYLEY drain site. No drainage. No redness, there is tenderness thoracolumbar region with increased muscle tone. LABORATORY DATA: 11/18/2020. The CBC 7.8, hemoglobin 13.1, hematocrit 39. 11/16/2020, sodium 138, potassium 3.5, glucose 132, creatinine 0.72 Other results Please see below. IMAGING: Imaging documentation personally reviewed by record. 11/13/2020 XR Abdomen with gaseous distention suggesting ileus 11/15/2020 Mild right abdominal colonic constipation 11/17/2020 . X-ray abdomen, improvement in bowel distention. 11/17/2020, compared with prior studies 01/01/2020, status post posterior fusion T11-12 with intact hardware overlying postoperative changes. Prior posterior decompression fusion at L3 5 degree identified. FUNCTIONAL STATUS: Premorbid: Independent with all activities of daily life as well as mobility using bilateral crutches, straight cath for social continence On Admission: -Supervision to moderate assistance for lower body dressing, shower transfers, stairs. -. Moderate assistance for bathing, upper body dressing, bed chair and wheelchair transfers, toilet transfers, ambulation. - Set up assistance for grooming. - Independent for memory and problem solving. 11.25.2020 Session focused on trial of AFO vs. dorsiflexion assist to improve foot clearance and safety with ambulation. Unable to use AFO at this time due to shoe and size constraints; provided ankle dorsiflexion assist with use of nesha bandage wrapped in sneaker laces; noting improvement; would benefit more from bilateral AFO's to promote maximizal foot clearance. Orthotics consult requested for AFOs and lumbar support, will use a binder in interim to see if we can improve posture and reduce discomfort. 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 Postoperative ileus, resolving. Neurogenic bladder. Neurogenic bowel Diabetes. Peripheral neuropathy. Paraparesis Essential hypertension. Thoracic myelopathy. Neurogenic claudication due to lumbar spinal stenosis. History of Spondylolisthesis, lumbar region. Low back pain. Gait instability. Myofascial pain syndrome. Insomnia. 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 Neurogenic bowel and bladder who presents status post T11-12 laminectomy, medial facetectomy, fusion for comprehensive rehabilitation PLAN: 1. Rehab- PT/OT advance gait and ADLs, strengthen/stretch/maintain ROM all 4 limbs. We'll continue to work on timing pain medication with therapy interventions to optimize possible capacity to participate. Bilateral AFOS and lumbar support for severe kyphosis and stooped posture. 2. Neuro- monitor and adjust medications as indicated for pain, bladder function 3. Ortho- chronic neck and low back pain with myofascial component. Transition to Baclofen in addition to Gabapentin, Nucynta usual home med unavailable, substitute post op pain management with Oxycodone/Tylenol, Lidoderm patch. Proceed with usual therapy modalities. 4. Cardiac- stable monitor -HTN -monitor and adjust medications -HLD-monitor and adjust medications 5. Resp -incentive spirometry, monitor for infection 6. Endo- hx of diabetes, SSI, diabetes education 7. -continue to check urine PVRs, and usual bladder training obtained, UA see if possibly addition of baclofen and use of suppositories may help improve bowel and bladder management.. 8. GI ppx- PPI, laxatives, maintain optimal bowel program seems to be doing better this week PROGNOSIS: Excellent. ESTIMATED LENGTH OF STAY:7-10 days. PROJECTED DISCHARGE DESTINATION: Home with family support and any durable medical equipment required to increase functional safety and mobility. TIME SPENT COUNSELING AND COORDINATING INITIAL CARE: Greater than 30minutes. This document is generated using speech recognition software which may result in grammatical, typographical and individual word errors. Allergies Coded Allergies: Contrast Media (Verified Adverse Reaction, Mild, nausea/vomiting, 11/23/20) Vital Signs Vital Signs Date Time Temp Pulse Resp B/P (MAP) Pulse Ox O2 Delivery O2 Flow Rate FiO2 11/25/20 08:00 99 147/66 (93) 11/25/20 05:00 97.5 18 95 Room Air Laboratory Data Labs 24H Laboratory Tests 2 11/24/20 11:44: Bedside Glucose (Misc Panel) 106 11/24/20 14:25: Bedside Glucose (Misc Panel) 94 11/24/20 16:33: Bedside Glucose (Misc Panel) 157H 11/24/20 19:23: Bedside Glucose (Misc Panel) 142H 11/25/20 05:20: Bedside Glucose (Misc Panel) 111 Current Medications Current Medications Current Medications Medications (Trade) Dose Ordered Sig/Adela Route PRN Reason Start Time Stop Time Status Last Admin Dose Admin Acetaminophen (Tylenol Arthritis Er) 650 mg Q8H PO 11/23/20 22:00 11/25/20 05:28 Allopurinol (Zyloprim) 300 mg DAILY PO 11/24/20 09:00 11/25/20 07:54 Baclofen (Lioresal) 10 mg DAILY PO 11/24/20 09:00 11/25/20 07:54 Cyclobenzaprine HCl (Flexeril) 10 mg TID PO 11/23/20 16:00 11/25/20 07:51 Dextrose (Dextrose 50%) 25 ml ASDIRECTED PRN IV SEE LABEL COMMENTS 11/23/20 14:05 Docusate Sodium (Colace) 100 mg BID PO 11/23/20 21:00 11/25/20 07:53 Gabapentin (Neurontin) 900 mg TID PO 11/23/20 16:00 11/25/20 07:54 Glimepiride (Amaryl) 4 mg DAILY PO 11/23/20 09:00 11/23/20 16:24 DC Glimepiride (Amaryl) 4 mg DAILY@0600 PO 11/23/20 16:22 Cancel Glimepiride (Amaryl) 4 mg DAILY@0800 PO 11/24/20 08:00 11/25/20 07:54 Glucagon (Glucagon) 1 mg ASDIRECTED PRN SC SEE LABEL COMMENTS 11/23/20 14:05 Glucose (Glucose) 16 GM ASDIRECTED PRN PO SEE LABEL COMMENTS 11/23/20 14:05 Glycerin (Glycerin Adult Suppository) 1 ea DAILYPRN PRN [place] CONSTIPATION 11/23/20 17:45 Heparin Sodium (Porcine) (Heparin) 5,000 units BID SQ 11/23/20 21:00 11/25/20 07:53 Home Med (Med Rec Complete!) ASDIRECTED XX 11/23/20 13:10 11/23/20 13:20 DC Insulin Human Lispro (HumaLOG INSULIN) See Protocol Table AC SC 11/23/20 17:30 11/25/20 07:52 Insulin Human Lispro (HumaLOG INSULIN) See Protocol Table QHS SC 11/24/20 21:00 Lidocaine (Lidoderm Patch) 1 patch DAILY TD 11/24/20 09:00 11/25/20 07:52 Lisinopril (Prinivil) 10 mg DAILY PO 11/24/20 09:00 11/25/20 07:58 Metformin HCl (Glucophage) 1,000 mg BID PO 11/23/20 21:00 11/24/20 10:28 DC 11/24/20 08:40 Metformin HCl (Glucophage) 1,000 mg BID@0800,1800 PO 11/24/20 18:00 11/25/20 07:53 Multivitamins (Theragram-M) 1 tab DAILY PO 11/24/20 09:00 11/25/20 07:52 Non-Formulary Medication ( See Comment Field Below ) REMOVE LIDODERM PATCH DAILY@ XX 11/24/20 21:00 11/24/20 21:15 Nortriptyline HCl (Pamelor) 50 mg QHS PO 11/23/20 21:00 11/24/20 21:13 Ondansetron HCl (Zofran) 4 mg Q6HP PRN PO NAUSEA 11/23/20 11:55 Oxycodone HCl (Roxicodone, Oxyir) 10 mg Q8H PRN PO SEVERE PAIN (PS 8-10) 11/23/20 14:05 Polyethylene Glycol (Miralax) 1 pkt DAILY PO 11/24/20 09:00 11/24/20 08:41 Senna/Docusate Sodium (Senokot S) 2 tab QHS PO 11/23/20 21:00 11/23/20 21:09 Simvastatin (Zocor) 40 mg DAILY PO 11/24/20 09:00 11/25/20 07:53 Tamsulosin HCl (Flomax) 0.4 mg DAILY PO 11/24/20 09:00 11/25/20 07:53 Vitamin D (Vitamin D) 1,000 units DAILY PO 11/24/20 09:00 11/25/20 07:53 MERT GUTIERREZ MD Nov 25, 2020 10:56
[2020-11-25 14:00] VITALS: BP 100/62
[2020-11-25 20:00] VITALS: BP 121/67
[2020-11-25] MEDS: NORTRIPTYLINE 25 MG CAP PO SCH (20:46)
[2020-11-25] MEDS: **NOTE PATIENT COMMENT** MISC XX SCH (20:48)
[2020-11-25] MEDS: SENOKOT S TAB PO SCH (20:48)
[2020-11-26 05:04] VITALS: BP 125/71
[2020-11-26] MEDS: ACETAMINOPHEN 650MG ER TAB (TYLENOL ARTHRITIS) PO SCH ×3 (05:51→20:37)
[2020-11-26 06:52] LABS: HEMOGLOBIN 14.4 g/dl (13.5-17.5); MEAN CORPUSCULAR HEMOGLOBIN 31.6 pg (27.0-33.0); MEAN CORPUSCULAR HGB CONC 32.7 g/dl (32.0-36.5); MEAN CORPUSCULAR VOLUME 96.7 fl (80.0-96.0); PLATELET COUNT, AUTOMATED 373 10^3/uL (150-450); RED BLOOD COUNT 4.55 10^6/uL (4.30-6.10); WHITE BLOOD COUNT 8.9 10^3/uL (4.0-10.0)
[2020-11-26] MEDS: HumaLOG INSULIN (NovoLOG) PER UNIT SC SCH ×4 (07:30→20:33)
[2020-11-26] MEDS: DOCUSATE SODIUM 100MG CAPSULE PO SCH ×2 (08:14→20:33)
[2020-11-26] MEDS: HEPARIN SOD (PORCINE) 5000UNITS/ML 1ML VIAL/SYRINGE SQ SCH ×2 (08:14→20:29)
[2020-11-26] MEDS: GABAPENTIN 300 MG CAP PO SCH ×3 (08:15→20:28)
[2020-11-26] MEDS: oxyCODONE 5MG TAB PO PRN (08:15)
[2020-11-26] MEDS: TAMSULOSIN 0.4 MG CAP PO SCH (08:16)
[2020-11-26] MEDS: SIMVASTATIN 40 MG TAB PO SCH (08:16)
[2020-11-26] MEDS: metFORMIN (GLUCOPHAGE) 1000 MG TABLET PO SCH ×2 (08:16→17:11)
[2020-11-26] MEDS: BACLOFEN 10 MG TAB PO SCH ×2 (08:16→20:28)
[2020-11-26] MEDS: MULTIVITAMINS/MINERALS THERAP 1 TAB PO SCH (08:16)
[2020-11-26] MEDS: GLIMEPIRIDE 2 MG TAB PO SCH (08:16)
[2020-11-26] MEDS: LIDOCAINE 5% (LIDODERM) PATCH TD SCH (08:17)
[2020-11-26] MEDS: VITAMIN D 1,000 INTERNATIONAL UNITS TABLET PO SCH (08:17)
[2020-11-26] MEDS: allopurinoL 300 MG TAB PO SCH (08:17)
--- NOTE | 2020-11-26 09:12 | IPNPDOC ---
PM&R Progress Note DATE OF SERVICE: Nov 26, 2020 Breast Surgeon Progress Note DATE OF ADMISSION: Nov 23, 2020 at 11:13 TIME OF ADMISSION: Please refer to physician's admission order. 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 Neurogenic bladder UTI Diabetes. Peripheral neuropathy. Essential hypertension. Thoracic myelopathy. Neurogenic claudication due to lumbar spinal stenosis. Spondylolisthesis, lumbar region. Low back pain. Gait instability. Myoclonus CHIEF COMPLAINT: Low back pain Urgency, frequency, incontinence of urination client self caths. Low extremity weakness, pain slightly improving after last surgery. Insomnia secondary to pain 11.25.20 Mild recurrence of right lower extremity spontaneous jumping awakening him at night HISTORY OF PRESENT ILLNESS: This is a 64 -year-old male who is status post lumbar fusion L3-[address] Daigle in 2012, after falling from a truck at work in 2009 sustaining low back injury. He continued with postoperative neurogenic bowel and bladder requiring straight cath, and significant back and leg pain with consideration of placement of a dorsal column stimulator, however, further imaging noted T11-12 stenosis and he underwent elective T11-12 laminectomy, medial facetectomy and posterolateral instrumented fusion. Postoperative course complicated with ileus requiring NG tube placement for a gastric decompression, he has had significant pain and decreased mobility. Patient is felt to be stable. Has demonstrated early progress movements and motor control. Motor planning. Physical therapy, occupational therapy, and while allowing for improved transfers and is felt he would benefit from continued skilled PT, OT to further progress independence and safety with mobility tasks. Patient qualifies with functional and medical criteria for conference of inpatient rehabilitation including interdisciplinary care with PT, OT, rehabilitation nursing and rehabilitative physician management. 11.24.2020 Night getting adjusted to the unit with continued pain did have a bowel movement yesterday. He is feeling encouraged with return of sensation in lower extremities and slightly reduced pain, low back pain persists. Discussed with OT to include attention to the myofascial component on the cervical, thoracic and lumbosacral region. In addition to the radicular and myelopathic issues. 11.25.2020 The patient notes increasing urinary challenges different from before requesting urology follow-up. He notes increased cloudiness and difficulty with self cath. He also states that last night he had an episode where his right leg started jumping this had occurred nightly before the last surgery and had started to stan post operatively. Patient again had difficult evening. The pain was more severe in the low back and right lower extremity. He continues to experiment with options for AFO to compensate for bilateral foot drop, worst on the left. His also had several episodes of uncontrolled bowel movements and there is need to proceed with consistent follow through on the bowel program. Well have a reset with enema today, addition of Metamucil and proceeding with suppository/digital stim for daily evacuations. REVIEW OF SYSTEMS: The following is a completed review of systems and has been reviewed. Review of systems otherwise unremarkable. PAIN: Patient notes pain level 7-9.5 out of 10, Lidoderm patch, helping lumbosacral pain EYES: No recent vision changes. EARS, NOSE, & THROAT: No throat pain, or dysphagia, or rhinorrhea. CARDIOVASCULAR: Denies chest pain or palpitations. PULMONARY: Denies shortness of breath. GASTROINTESTINAL: Denies constipation/diarrhea. However having increasing episodes of bowel incontinence, his status post recent episode of ileus with obstipation GENITOURINARY: requires self cath, urgency and incontinence of bowel and bladder MUSCULOSKELETAL: chronic right shoulder girdle, neck, low back pain NEUROLOGICAL: paresthesias bilateral lower extremities, recent recurrent myoclonic jerks. Right lower extremity HEMATOLOGICAL: non contributory SKIN: Notes his legs and feet were very blanched white until the last surgery after which circulation seemed to have improved and they are warm and pink now PSYCHIATRIC: Unremarkable. All other review of systems found to be negative. ALLERGIES: MRI dye DIET: Regular. PHYSICAL EXAMINATION: VITAL SIGNS: Please see below. GENERAL: Pleasant and cooperative, pale, mild distress. Alert and oriented times three. HEENT: PERRL. Extraocular movements intact right eye strabismus. Clear conjunctiva, no adenopathy or thyromegaly. Full cervical range of motion with tenderness and spasm into right shoulder girdle, upper trapezius. CARDIOVASCULAR: Regular rate and rhythm. No murmurs, rubs, or gallops. LUNGS: Clear to auscultation bilaterally. No wheezes. No rhonchi. ABDOMEN: Soft, nontender, mildly distended. Positive bowel sounds. Normal active bowel sounds. NEUROLOGICAL: Cranial nerves II through XII grossly intact. Sensation grossly intact. 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 Distal erythema, no edema. SKIN: intact. Old healed midline lumbosacral incision, fresh healing thoracolumbar incision kristie removed. Right KAYLEY drain site. No drainage. No redness, there is tenderness thoracolumbar region with increased muscle tone. LABORATORY DATA: 11/25/2020 . UA 3+ protein, negative glucose, positive nitrite, 2+ positive leukocyte esterase with sediment and 51 white cells 11/24/2020 , creatinine 0.97, GFR 60, fasting blood sugar 171, 11/18/2020. The CBC 7.8, hemoglobin 13.1, hematocrit 39. 11/16/2020, sodium 138, potassium 3.5, glucose 132, creatinine 0.72 Other results Please see below. IMAGING: Imaging documentation personally reviewed by record. 11/13/2020 XR Abdomen with gaseous distention suggesting ileus 11/15/2020 Mild right abdominal colonic constipation 11/17/2020 . X-ray abdomen, improvement in bowel distention. 11/17/2020, compared with prior studies 01/01/2020, status post posterior fusion T11-12 with intact hardware overlying postoperative changes. Prior posterior decompression fusion at L3 5 degree identified. FUNCTIONAL STATUS: Premorbid: Independent with all activities of daily life as well as mobility using bilateral crutches, straight cath for social continence On Admission: -Supervision to moderate assistance for lower body dressing, shower transfers, stairs. -. Moderate assistance for bathing, upper body dressing, bed chair and wheelchair transfers, toilet transfers, ambulation. - Set up assistance for grooming. - Independent for memory and problem solving. 11.25.2020 Session focused on trial of AFO vs. dorsiflexion assist to improve foot clearance and safety with ambulation. Unable to use AFO at this time due to shoe and size constraints; provided ankle dorsiflexion assist with use of stone bandage wrapped in sneaker laces; noting improvement; would benefit more from bilateral AFO's to promote maximizal foot clearance. Orthotics consult requested for AFOs and lumbar support, will use a binder in interim to see if we can improve posture and reduce discomfort. 11.26.2020 pt ambulates 94ft with Norberto PRW, CGA with w/c follow; to improve standing posture/tolerance for progressing standing level ADLs; pt stood for 2 min 35secs and 3 minutes while engaged in table top activity, stood to perform oral hygiene and standing shoulder ARC to promote trunk extension; tolerating fol-mac-pauhe AFO on the right, Stone wrapping, working better on the left. Trendelenburg gait. Further impedes foot clearance on the left. Stooped posture using abdominal binder to help reinforce support and reduce pain. 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 Postoperative ileus, resolving. Neurogenic bladder. UTI/chronic colonization Neurogenic bowel Diabetes Mellitus Peripheral neuropathy. Paraparesis Essential hypertension. Thoracic myelopathy. Neurogenic claudication due to lumbar spinal stenosis. History of Spondylolisthesis, lumbar region. Low back pain. Gait instability. Myofascial pain syndrome. Insomnia. 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 Neurogenic bowel and bladder who presents status post T11-12 laminectomy, medial facetectomy, fusion for comprehensive rehabilitation PLAN: 1. Rehab- PT/OT advance gait and ADLs, strengthen/stretch/maintain ROM all 4 limbs. We'll continue to work on timing pain medication with therapy interventions to optimize possible capacity to participate. Requested ortho tiBilateral AFOS and lumbar support for severe kyphosis and stooped posture. E- stim facilitate muscle recovery and reduce pain over the left hip girdle and foreleg. Increased baclofen to 20 twice a day. 2. Neuro- monitor and adjust medications as indicated for pain, bladder function, on Pamelor, will increase PM dose might help with sleep and pain, or additional agent may be indicated. 3. Ortho- chronic neck and low back pain with myofascial component. Transition to Baclofen in addition to Gabapentin, Nucynta usual home med unavailable, substitute post op pain management with Oxycodone/Tylenol, Lidoderm patch. Proceed with usual therapy modalities. 4. Cardiac- stable monitor -HTN -monitor and adjust medications, Lisinopril, K+hi nl at 8, need to monitor w Bactrim -HLD-monitor and adjust medications 5. Resp -incentive spirometry, monitor for infection 6. Endo- hx of diabetes, SSI, diabetes education 7. -continue to check urine PVRs, and usual bladder training obtained, UA positive for probable colonization, Cx pending,however based on outpatient notes, was to be on Bactrim suppression, now S/P LS surgery with instrumentation, needs more aggressive rx to minimize risk of seeding hardware and optimizing wound healing. We will cover with Bactrim awaiting cultures and Urology input and observe if possibly addition of baclofen and use of suppositories may help improve bowel and bladder management.. 8. GI ppx- PPI, laxatives, discussed with nursing the need to further regulate bowel program, will DC miralax, add Metamucil to bulk stool and daily glycerin suppositories/Digital stim, adjust frequency once full social continence achieved. PROGNOSIS: Excellent. ESTIMATED LENGTH OF STAY:7-10 days. PROJECTED DISCHARGE DESTINATION: Home with family support and any durable medical equipment required to increase functional safety and mobility. TIME SPENT COUNSELING AND COORDINATING INITIAL CARE: Greater than 30minutes. This document is generated using speech recognition software which may result in grammatical, typographical and individual word errors. Allergies Coded Allergies: Contrast Media (Verified Adverse Reaction, Mild, nausea/vomiting, 11/23/20) Vital Signs Vital Signs Date Time Temp Pulse Resp B/P (MAP) Pulse Ox O2 Delivery O2 Flow Rate FiO2 11/26/20 08:16 125/71 11/26/20 08:15 20 Room Air 11/26/20 05:04 97.7 96 97 Laboratory Data CBC/BMP Laboratory Tests 11/26/20 06:43 Labs 24H Laboratory Tests 2 11/25/20 11:59: Bedside Glucose (Misc Panel) 78L 11/25/20 14:25: Urine Color YELLOW, Urine Appearance TURBIDH, Urine pH 9.0, Urine Specific Elizabeth 1.020, Urine Protein 3+H, Urine Glucose (UA) NEGATIVE, Urine Ketones NEGATIVE, Urine Blood NEGATIVE, Urine Nitrite POSITIVEH, Urine Bilirubin NEGATIVE, Urine Urobilinogen 0.2, Urine Leukocyte Esterase 2+H, Urine WBC (Auto) 51H, Urine RBC (Auto) 43H, Urine Hyaline Casts (Auto) 0, Urine Bacteria (Auto) NEGATIVE, Urine Squamous Epithelial Cells 0, Urine Amorphous Sediment SMALLH, Urine Mucus (Auto) SMALL, Urine Sperm (Auto) 11/25/20 17:15: Bedside Glucose (Misc Panel) 132H 11/25/20 19:18: Bedside Glucose (Misc Panel) 160H 11/26/20 05:28: Bedside Glucose (Misc Panel) 106 11/26/20 06:43: Nucleated Red Blood Cells % (auto) 0.0 Microbiology Microbiology 11/25/20 Urine Culture, Received Pending Current Medications Current Medications Current Medications Medications (Trade) Dose Ordered Sig/Adela Route PRN Reason Start Time Stop Time Status Last Admin Dose Admin Acetaminophen (Tylenol Arthritis Er) 650 mg Q8H PO 11/23/20 22:00 11/26/20 05:51 Allopurinol (Zyloprim) 300 mg DAILY PO 11/24/20 09:00 11/26/20 08:17 Baclofen (Lioresal) 10 mg DAILY PO 11/24/20 09:00 11/25/20 10:55 DC 11/25/20 07:54 Baclofen (Lioresal) 10 mg Q12H PO 11/25/20 20:00 11/26/20 08:20 DC 11/26/20 08:16 Baclofen (Lioresal) 20 mg Q12H PO 11/26/20 20:00 Cyclobenzaprine HCl (Flexeril) 10 mg TID PO 11/23/20 16:00 11/25/20 10:55 DC 11/25/20 07:51 Cyclobenzaprine HCl (Flexeril) 10 mg TID PRN PO SPASMS 11/25/20 10:35 Dextrose (Dextrose 50%) 25 ml ASDIRECTED PRN IV SEE LABEL COMMENTS 11/23/20 14:05 Docusate Sodium (Colace) 100 mg BID PO 11/23/20 21:00 11/26/20 08:14 Gabapentin (Neurontin) 900 mg TID PO 11/23/20 16:00 11/26/20 08:15 Glimepiride (Amaryl) 4 mg DAILY PO 11/23/20 09:00 11/23/20 16:24 DC Glimepiride (Amaryl) 4 mg DAILY@0600 PO 11/23/20 16:22 Cancel Glimepiride (Amaryl) 4 mg DAILY@0800 PO 11/24/20 08:00 11/26/20 08:16 Glucagon (Glucagon) 1 mg ASDIRECTED PRN SC SEE LABEL COMMENTS 11/23/20 14:05 Glucose (Glucose) 16 GM ASDIRECTED PRN PO SEE LABEL COMMENTS 11/23/20 14:05 Glycerin (Glycerin Adult Suppository) [address] CONSTIPATION 11/23/20 17:45 Heparin Sodium (Porcine) (Heparin) 5,000 units BID SQ 11/23/20 21:00 11/26/20 08:14 Home Med (Med Rec Complete!) ASDIRECTED XX 11/23/20 13:10 11/23/20 13:20 DC Insulin Human Lispro (HumaLOG INSULIN) See Protocol Table AC SC 11/23/20 17:30 11/25/20 07:52 Insulin Human Lispro (HumaLOG INSULIN) See Protocol Table QHS SC 11/24/20 21:00 Lidocaine (Lidoderm Patch) 1 patch DAILY TD 11/24/20 09:00 11/26/20 08:17 Lisinopril (Prinivil) 10 mg DAILY PO 11/24/20 09:00 11/26/20 08:16 Metformin HCl (Glucophage) 1,000 mg BID PO 11/23/20 21:00 11/24/20 10:28 DC 11/24/20 08:40 Metformin HCl (Glucophage) 1,000 mg BID@0800,1800 PO 11/24/20 18:00 11/26/20 08:16 Multivitamins (Theragram-M) 1 tab DAILY PO 11/24/20 09:00 11/26/20 08:16 Non-Formulary Medication ( See Comment Field Below ) REMOVE LIDODERM PATCH DAILY@21 XX 11/24/20 21:00 11/25/20 20:48 Nortriptyline HCl (Pamelor) 50 mg QHS PO 11/23/20 21:00 11/25/20 20:46 Ondansetron HCl (Zofran) 4 mg Q6HP PRN PO NAUSEA 11/23/20 11:55 Oxycodone HCl (Roxicodone, Oxyir) 10 mg Q8H PRN PO SEVERE PAIN (PS 8-10) 11/23/20 14:05 11/26/20 08:15 Polyethylene Glycol (Miralax) 1 pkt DAILY PO 11/24/20 09:00 11/24/20 08:41 Senna/Docusate Sodium (Senokot S) 2 tab QHS PO 11/23/20 21:00 11/23/20 21:09 Simvastatin (Zocor) 40 mg DAILY PO 11/24/20 09:00 11/26/20 08:16 Tamsulosin HCl (Flomax) 0.4 mg DAILY PO 11/24/20 09:00 11/26/20 08:16 Trimethoprim/ Sulfamethoxazole (Bactrim Ds, Septra Ds 160mg/ 800mg) 1 tab BID PO 11/26/20 09:00 12/03/20 08:00 Vitamin D (Vitamin D) 1,000 units DAILY PO 11/24/20 09:00 11/26/20 08:17 MERT GUTIERREZ MD Nov 26, 2020 09:12
[2020-11-26] MEDS: BACTRIM 160MG/800MG DS TAB PO SCH ×2 (12:04→20:27)
[2020-11-26 14:00] VITALS: BP 130/66
[2020-11-26 20:00] VITALS: BP 122/58
[2020-11-26] MEDS: NORTRIPTYLINE 25 MG CAP PO SCH (20:27)
[2020-11-26] MEDS: **NOTE PATIENT COMMENT** MISC XX SCH (20:32)
[2020-11-26] MEDS: SENOKOT S TAB PO SCH (20:33)
[2020-11-27 06:00] VITALS: BP 145/82
[2020-11-27] MEDS: ACETAMINOPHEN 650MG ER TAB (TYLENOL ARTHRITIS) PO SCH ×3 (06:22→22:39)
[2020-11-27] MEDS: HumaLOG INSULIN (NovoLOG) PER UNIT SC SCH ×4 (07:51→20:42)
[2020-11-27] MEDS: CYCLOBENZAPRINE 10MG TABLET PO PRN (07:51)
[2020-11-27] MEDS: BACTRIM 160MG/800MG DS TAB PO SCH ×2 (07:51→20:30)
[2020-11-27] MEDS: LIDOCAINE 5% (LIDODERM) PATCH TD SCH (07:51)
[2020-11-27] MEDS: allopurinoL 300 MG TAB PO SCH (07:51)
[2020-11-27] MEDS: DOCUSATE SODIUM 100MG CAPSULE PO SCH ×2 (07:52→20:32)
[2020-11-27] MEDS: TAMSULOSIN 0.4 MG CAP PO SCH (07:52)
[2020-11-27] MEDS: VITAMIN D 1,000 INTERNATIONAL UNITS TABLET PO SCH (07:52)
[2020-11-27] MEDS: SIMVASTATIN 40 MG TAB PO SCH (07:52)
[2020-11-27] MEDS: MULTIVITAMINS/MINERALS THERAP 1 TAB PO SCH (07:52)
[2020-11-27] MEDS: GABAPENTIN 300 MG CAP PO SCH ×3 (07:52→20:30)
[2020-11-27] MEDS: metFORMIN (GLUCOPHAGE) 1000 MG TABLET PO SCH ×2 (07:52→17:34)
[2020-11-27] MEDS: GLIMEPIRIDE 2 MG TAB PO SCH (07:52)
[2020-11-27] MEDS: HEPARIN SOD (PORCINE) 5000UNITS/ML 1ML VIAL/SYRINGE SQ SCH ×2 (07:53→20:31)
[2020-11-27] MEDS: BACLOFEN 10 MG TAB PO SCH ×2 (07:53→20:30)
[2020-11-27] MEDS: oxyCODONE 5MG TAB PO PRN (07:53)
[2020-11-27 08:08] LABS: HEMATOCRIT 43.6 % (42.0-52.0); HEMOGLOBIN 14.4 g/dl (13.5-17.5); MEAN CORPUSCULAR HEMOGLOBIN 31.6 pg (27.0-33.0); MEAN CORPUSCULAR VOLUME 95.6 fl (80.0-96.0); PLATELET COUNT, AUTOMATED 390 10^3/uL (150-450); RED BLOOD COUNT 4.56 10^6/uL (4.30-6.10); WHITE BLOOD COUNT 7.1 10^3/uL (4.0-10.0)
[2020-11-27 08:37] LABS: BLOOD UREA NITROGEN 13 MG/DL (7-18); CALCIUM LEVEL 9.2 MG/DL (8.8-10.2); CARBON DIOXIDE LEVEL 27 MEQ/L (21-32); CHLORIDE LEVEL 103 MEQ/L (98-107); CREATININE FOR GFR 0.96 MG/DL (0.70-1.30); GLOMERULAR FILTRATION RATE > 60.0 (>49); GLUCOSE, FASTING 193 MG/DL (70-100); POTASSIUM SERUM 4.9 MEQ/L (3.5-5.1); SODIUM LEVEL 136 MEQ/L (136-145)
[2020-11-27 14:00] VITALS: BP 112/68
[2020-11-27 20:00] VITALS: BP 97/55
[2020-11-27 20:05] VITALS: BP 110/62
[2020-11-27] MEDS: NORTRIPTYLINE 25 MG CAP PO SCH (20:30)
[2020-11-27] MEDS: **NOTE PATIENT COMMENT** MISC XX SCH (20:31)
[2020-11-27] MEDS: SENOKOT S TAB PO SCH (20:31)
[2020-11-28] MEDS: ACETAMINOPHEN 650MG ER TAB (TYLENOL ARTHRITIS) PO SCH ×3 (05:58→22:10)
[2020-11-28 06:08] VITALS: BP 133/85
[2020-11-28] MEDS: HumaLOG INSULIN (NovoLOG) PER UNIT SC SCH ×4 (07:30→20:21)
[2020-11-28 07:52] LABS: BLOOD UREA NITROGEN 12 MG/DL (7-18); CALCIUM LEVEL 8.8 MG/DL (8.8-10.2); CARBON DIOXIDE LEVEL 27 MEQ/L (21-32); CHLORIDE LEVEL 104 MEQ/L (98-107); CREATININE FOR GFR 1.02 MG/DL (0.70-1.30); GLOMERULAR FILTRATION RATE > 60.0 (>49); GLUCOSE, FASTING 141 MG/DL (70-100); POTASSIUM SERUM 4.6 MEQ/L (3.5-5.1); SODIUM LEVEL 138 MEQ/L (136-145)
[2020-11-28] MEDS: GABAPENTIN 300 MG CAP PO SCH ×3 (08:32→20:21)
[2020-11-28] MEDS: BACTRIM 160MG/800MG DS TAB PO SCH ×2 (08:32→20:21)
[2020-11-28] MEDS: DOCUSATE SODIUM 100MG CAPSULE PO SCH ×2 (08:32→20:20)
[2020-11-28] MEDS: MULTIVITAMINS/MINERALS THERAP 1 TAB PO SCH (08:32)
[2020-11-28] MEDS: TAMSULOSIN 0.4 MG CAP PO SCH (08:32)
[2020-11-28] MEDS: SIMVASTATIN 40 MG TAB PO SCH (08:33)
[2020-11-28] MEDS: CYCLOBENZAPRINE 10MG TABLET PO PRN (08:33)
[2020-11-28] MEDS: BACLOFEN 10 MG TAB PO SCH ×2 (08:33→20:21)
[2020-11-28] MEDS: GLIMEPIRIDE 2 MG TAB PO SCH (08:33)
[2020-11-28] MEDS: allopurinoL 300 MG TAB PO SCH (08:33)
[2020-11-28] MEDS: metFORMIN (GLUCOPHAGE) 1000 MG TABLET PO SCH ×2 (08:33→17:06)
[2020-11-28] MEDS: VITAMIN D 1,000 INTERNATIONAL UNITS TABLET PO SCH (08:33)
[2020-11-28] MEDS: LIDOCAINE 5% (LIDODERM) PATCH TD SCH (08:34)
[2020-11-28] MEDS: HEPARIN SOD (PORCINE) 5000UNITS/ML 1ML VIAL/SYRINGE SQ SCH ×2 (08:34→20:22)
[2020-11-28 14:00] VITALS: BP 110/77
[2020-11-28 20:00] VITALS: BP 136/71
[2020-11-28] MEDS: SENOKOT S TAB PO SCH (20:20)
[2020-11-28] MEDS: **NOTE PATIENT COMMENT** MISC XX SCH (20:22)
[2020-11-28] MEDS: NORTRIPTYLINE 25 MG CAP PO SCH (20:22)
[2020-11-29 05:23] VITALS: BP 113/67
[2020-11-29] MEDS: ACETAMINOPHEN 650MG ER TAB (TYLENOL ARTHRITIS) PO SCH ×3 (05:55→20:48)
[2020-11-29 07:30] VITALS: BP 136/88
[2020-11-29] MEDS: HumaLOG INSULIN (NovoLOG) PER UNIT SC SCH ×4 (07:30→20:42)
[2020-11-29] MEDS: CYCLOBENZAPRINE 10MG TABLET PO PRN (07:50)
[2020-11-29] MEDS: LIDOCAINE 5% (LIDODERM) PATCH TD SCH (07:50)
[2020-11-29] MEDS: GABAPENTIN 300 MG CAP PO SCH ×4 (07:51→20:43)
[2020-11-29] MEDS: GLIMEPIRIDE 2 MG TAB PO SCH (07:51)
[2020-11-29] MEDS: allopurinoL 300 MG TAB PO SCH (07:52)
[2020-11-29] MEDS: DOCUSATE SODIUM 100MG CAPSULE PO SCH ×2 (07:52→20:42)
[2020-11-29] MEDS: TAMSULOSIN 0.4 MG CAP PO SCH (07:52)
[2020-11-29] MEDS: BACLOFEN 10 MG TAB PO SCH ×2 (07:52→20:43)
[2020-11-29] MEDS: MULTIVITAMINS/MINERALS THERAP 1 TAB PO SCH (07:52)
[2020-11-29] MEDS: VITAMIN D 1,000 INTERNATIONAL UNITS TABLET PO SCH (07:52)
[2020-11-29] MEDS: metFORMIN (GLUCOPHAGE) 500MG TAB PO SCH ×2 (07:52→18:43)
[2020-11-29] MEDS: SIMVASTATIN 40 MG TAB PO SCH (07:52)
[2020-11-29] MEDS: HEPARIN SOD (PORCINE) 5000UNITS/ML 1ML VIAL/SYRINGE SQ SCH ×2 (07:53→20:43)
[2020-11-29] MEDS: oxyCODONE 5MG TAB PO PRN (07:54)
[2020-11-29 08:00] LABS: HEMATOCRIT 44.8 % (42.0-52.0); HEMOGLOBIN 14.7 g/dl (13.5-17.5); MEAN CORPUSCULAR HEMOGLOBIN 31.6 pg (27.0-33.0); MEAN CORPUSCULAR HGB CONC 32.8 g/dl (32.0-36.5); MEAN CORPUSCULAR VOLUME 96.3 fl (80.0-96.0); PLATELET COUNT, AUTOMATED 426 10^3/uL (150-450); RED BLOOD COUNT 4.65 10^6/uL (4.30-6.10); WHITE BLOOD COUNT 7.8 10^3/uL (4.0-10.0)
[2020-11-29 08:21] LABS: BLOOD UREA NITROGEN 12 MG/DL (7-18); CALCIUM LEVEL 9.2 MG/DL (8.8-10.2); CARBON DIOXIDE LEVEL 26 MEQ/L (21-32); CHLORIDE LEVEL 105 MEQ/L (98-107); CREATININE FOR GFR 1.07 MG/DL (0.70-1.30); GLOMERULAR FILTRATION RATE > 60.0 (>49); GLUCOSE, FASTING 188 MG/DL (70-100); SODIUM LEVEL 139 MEQ/L (136-145)
[2020-11-29] MEDS: BACTRIM 160MG/800MG DS TAB PO SCH ×2 (10:05→20:42)
[2020-11-29 14:00] VITALS: BP 114/66
[2020-11-29 20:00] VITALS: BP 122/73
[2020-11-29] MEDS: SENOKOT S TAB PO SCH (20:42)
[2020-11-29] MEDS: NORTRIPTYLINE 25 MG CAP PO SCH (20:43)
[2020-11-29] MEDS: **NOTE PATIENT COMMENT** MISC XX SCH (20:44)
[2020-11-30] MEDS: ACETAMINOPHEN 650MG ER TAB (TYLENOL ARTHRITIS) PO SCH ×3 (05:18→20:37)
[2020-11-30 05:33] VITALS: BP 101/62
[2020-11-30 07:02] LABS: BLOOD UREA NITROGEN 11 MG/DL (7-18); CALCIUM LEVEL 9.2 MG/DL (8.8-10.2); CARBON DIOXIDE LEVEL 24 MEQ/L (21-32); CHLORIDE LEVEL 106 MEQ/L (98-107); CREATININE FOR GFR 0.88 MG/DL (0.70-1.30); GLOMERULAR FILTRATION RATE > 60.0 (>49); GLUCOSE, FASTING 129 MG/DL (70-100); POTASSIUM SERUM 4.8 MEQ/L (3.5-5.1); SODIUM LEVEL 136 MEQ/L (136-145)
[2020-11-30] MEDS: HumaLOG INSULIN (NovoLOG) PER UNIT SC SCH ×4 (07:30→20:33)
[2020-11-30] MEDS: BACTRIM 160MG/800MG DS TAB PO SCH ×2 (08:20→20:33)
[2020-11-30] MEDS: DOCUSATE SODIUM 100MG CAPSULE PO SCH ×2 (08:20→20:33)
[2020-11-30] MEDS: GABAPENTIN 300 MG CAP PO SCH ×3 (08:20→20:33)
[2020-11-30] MEDS: allopurinoL 300 MG TAB PO SCH (08:20)
[2020-11-30] MEDS: BACLOFEN 10 MG TAB PO SCH ×2 (08:20→20:33)
[2020-11-30] MEDS: SIMVASTATIN 40 MG TAB PO SCH (08:21)
[2020-11-30] MEDS: MULTIVITAMINS/MINERALS THERAP 1 TAB PO SCH (08:21)
[2020-11-30] MEDS: VITAMIN D 1,000 INTERNATIONAL UNITS TABLET PO SCH (08:21)
[2020-11-30] MEDS: TAMSULOSIN 0.4 MG CAP PO SCH (08:21)
[2020-11-30] MEDS: metFORMIN (GLUCOPHAGE) 500MG TAB PO SCH (08:21)
[2020-11-30] MEDS: GLIMEPIRIDE 2 MG TAB PO SCH (08:21)
[2020-11-30] MEDS: LIDOCAINE 5% (LIDODERM) PATCH TD SCH (08:23)
[2020-11-30] MEDS: HEPARIN SOD (PORCINE) 5000UNITS/ML 1ML VIAL/SYRINGE SQ SCH ×2 (08:23→20:34)
[2020-11-30 14:00] VITALS: BP 108/63
[2020-11-30 20:00] VITALS: BP 114/54
[2020-11-30] MEDS: NORTRIPTYLINE 25 MG CAP PO SCH (20:33)
[2020-11-30] MEDS: SENOKOT S TAB PO SCH (20:33)
[2020-11-30] MEDS: **NOTE PATIENT COMMENT** MISC XX SCH (20:34)
[2020-12-01] MEDS: ACETAMINOPHEN 650MG ER TAB (TYLENOL ARTHRITIS) PO SCH ×3 (05:26→21:09)
[2020-12-01 06:00] VITALS: BP 115/65
[2020-12-01] MEDS: HumaLOG INSULIN (NovoLOG) PER UNIT SC SCH (07:30)
[2020-12-01 07:41] LABS: BASO # 0.1 10^3/uL (0.0-0.2); BASO % 1.8 % (0.0-1.0); EOS # 0.3 10^3/uL (0.0-0.5); EOS % 4.2 % (0.0-3.0); HEMATOCRIT 43.4 % (42.0-52.0); HEMOGLOBIN 14.3 g/dl (13.5-17.5); LYMPH # 2.1 10^3/uL (1.5-5.0); LYMPH % 31.7 % (24.0-44.0); MEAN CORPUSCULAR HEMOGLOBIN 31.7 pg (27.0-33.0); MEAN CORPUSCULAR HGB CONC 32.9 g/dl (32.0-36.5); MEAN CORPUSCULAR VOLUME 96.2 fl (80.0-96.0); MONO # 0.7 10^3/uL (0.0-0.8); MONO % 9.7 % (2.0-8.0); NEUTROPHILS # 3.5 10^3/uL (1.5-8.5); NEUTROPHILS % 51.7 % (36.0-66.0); PLATELET COUNT, AUTOMATED 410 10^3/uL (150-450); RED BLOOD COUNT 4.51 10^6/uL (4.30-6.10); WHITE BLOOD COUNT 6.7 10^3/uL (4.0-10.0)
[2020-12-01 08:01] LABS: BLOOD UREA NITROGEN 11 MG/DL (7-18); CALCIUM LEVEL 9.7 MG/DL (8.8-10.2); CARBON DIOXIDE LEVEL 25 MEQ/L (21-32); CHLORIDE LEVEL 105 MEQ/L (98-107); CREATININE FOR GFR 0.86 MG/DL (0.70-1.30); GLOMERULAR FILTRATION RATE > 60.0 (>49); GLUCOSE, FASTING 140 MG/DL (70-100); POTASSIUM SERUM 4.9 MEQ/L (3.5-5.1); SODIUM LEVEL 137 MEQ/L (136-145)
[2020-12-01] MEDS: BACLOFEN 10 MG TAB PO SCH ×2 (08:21→20:00)
[2020-12-01] MEDS: DOCUSATE SODIUM 100MG CAPSULE PO SCH ×2 (08:21→21:08)
[2020-12-01] MEDS: oxyCODONE 5MG TAB PO PRN ×2 (08:21→21:10)
[2020-12-01] MEDS: allopurinoL 300 MG TAB PO SCH (08:21)
[2020-12-01] MEDS: VITAMIN D 1,000 INTERNATIONAL UNITS TABLET PO SCH (08:21)
[2020-12-01] MEDS: MULTIVITAMINS/MINERALS THERAP 1 TAB PO SCH (08:21)
[2020-12-01] MEDS: SIMVASTATIN 40 MG TAB PO SCH (08:22)
[2020-12-01] MEDS: metFORMIN (GLUCOPHAGE) 500MG TAB PO SCH (08:22)
[2020-12-01] MEDS: TAMSULOSIN 0.4 MG CAP PO SCH (08:22)
[2020-12-01] MEDS: BACTRIM 160MG/800MG DS TAB PO SCH ×2 (08:22→21:08)
[2020-12-01] MEDS: LIDOCAINE 5% (LIDODERM) PATCH TD SCH (08:22)
[2020-12-01] MEDS: GABAPENTIN 300 MG CAP PO SCH ×3 (08:22→21:08)
[2020-12-01] MEDS: HEPARIN SOD (PORCINE) 5000UNITS/ML 1ML VIAL/SYRINGE SQ SCH ×2 (08:22→21:10)
--- NOTE | 2020-12-01 09:09 | IPNPDOC ---
PM&R Progress Note DATE OF SERVICE: Dec 01, 2020 Industry Analyst Progress Note Subjective: Patient reporting he thinks his sugars are running a little better since cutting back on the diabetes medication. He reports he is starting to feel like he needs to have a bowel movement and is open to trying a suppository stating he has not gone since Sunday. REVIEW OF SYSTEMS: The following is a completed review of systems and has been reviewed. Review of systems otherwise unremarkable. PAIN: low back pain EYES: No recent vision changes. EARS, NOSE, & THROAT: No throat pain, or dysphagia, or rhinorrhea. CARDIOVASCULAR: Denies chest pain or palpitations. PULMONARY: Denies shortness of breath. GASTROINTESTINAL: +constipation with neurogenic bowel GENITOURINARY: requires self cath, urgency and incontinence of bowel and bladder MUSCULOSKELETAL: chronic right shoulder girdle, neck, low back pain NEUROLOGICAL: paresthesias bilateral lower extremities, recent recurrent myoclonic jerks. Right lower extremity HEMATOLOGICAL: non contributory SKIN: Notes his legs and feet were very blanched white until the last surgery after which circulation seemed to have improved and they are warm and pink now PSYCHIATRIC: Unremarkable. All other review of systems found to be negative. PHYSICAL EXAMINATION: VITAL SIGNS: Please see below. GENERAL: Pleasant and cooperative, pale, mild distress. Alert and oriented times three. HEENT: PERRL. Extraocular movements intact right eye strabismus. Clear conjunctiva, no adenopathy or thyromegaly. Full cervical range of motion with tenderness and spasm into right shoulder girdle, upper trapezius. CARDIOVASCULAR: Regular rate and rhythm. No murmurs, rubs, or gallops. LUNGS: Clear to auscultation bilaterally. No wheezes. No rhonchi. ABDOMEN: Soft, nontender, mildly distended. Positive bowel sounds. Normal active bowel sounds. NEUROLOGICAL: Cranial nerves II through XII grossly intact. Sensation grossly intact. EXTREMITIES: 5 /5 automation qa lead, elbow flexion, elbow extension, 4/5 left 5-/5 right knee extension, 4-/5 right 3-/5 left foot dorsiflexion, plantar flexion. Distal erythema, no edema. SKIN: intact. Old healed midline lumbosacral incision, fresh healing thoracolumbar incision kristie removed. Right KAYLEY drain site. No drainage. No redness, there is tenderness thoracolumbar region with increased muscle tone. 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 Neurogenic bowel and bladder who presents status post T11-12 laminectomy, medial facetectomy, fusion for comprehensive rehabilitation PLAN: 1. Rehab- PT/OT advance gait and ADLs, strengthen/stretch/maintain ROM all 4 limbs. We'll continue to work on timing pain medication with therapy interventions to optimize possible capacity to participate. Requested orthotiBilateral AFOS and lumbar support for severe kyphosis and stooped postur e. E-stim facilitate muscle recovery and reduce pain over the left hip girdle and foreleg. Increased baclofen to 20 twice a day. 2. Neuro- monitor and adjust medications as indicated for pain, bladder function, on Pamelor 3. Ortho- chronic neck and low back pain with myofascial component. Transition to Baclofen in addition to Gabapentin, Nucynta usual home med unavailable, substitute post op pain management with Oxycodone/Tylenol, Lidoderm patch. Proceed with usual therapy modalities. 4. Cardiac- stable monitor -HTN -monitor and adjust medications, c/uLisinopril -HLD-monitor and adjust medications 5. Resp -incentive spirometry, monitor for infection 6. Endo- hx of diabetes, SSI, diabetes education, patient with frequent episodes of symptomatic hypoglycemia, c/u on lower metformin dosing, d/c'd glimeperide, c/u to monitor 7. -continue to check urine PVRs, and usual bladder training obtained, UA positive for PROVIDENCIA RETTGERI, c/u Bactrim -refer to urology for neurogenic bladder 8. GI ppx-patient with neurgenic bowel, per charting it looks like he has not been taking scheduled Senokot or glycerin suppository, will order bisocodyl suppository today and patient beginning to feel uncomfortable- unclear if patient was refusing some of his bowel meds the last several days due to concern about having an accident which did happen last week -will aim to empty his bowels as quickly as possible then get a voiding schedule that will likely include dig-stim and daily suppositories and will make transition home easier 9. Dispo- [facility] home 12-07-20, patient is making gains in therapy, however will need to continue to work on safety awareness, will benefit from AFOs training, and [facility] medical issues such as symptomatic hypoglycemia and UTI that can be further monitored and treated on ARU, additionally patient's neurogenic bowel has not been sufficiently treated and he would benefit from more training to regulate his bowels prior to going home Allergies Coded Allergies: Contrast Media (Verified Adverse Reaction, Mild, nausea/vomiting, 11/23/20) Vital Signs Vital Signs Date Time Temp Pulse Resp B/P (MAP) Pulse Ox O2 Delivery O2 Flow Rate FiO2 12/01/20 08:21 18 12/01/20 08:21 115/65 12/01/20 06:00 97.0 90 91 Room Air Laboratory Data CBC/BMP Laboratory Tests 12/01/20 07:01 Labs 24H Laboratory Tests 2 11/30/20 11:33: Bedside Glucose (Misc Panel) 74L 11/30/20 16:32: Bedside Glucose (Misc Panel) 102 11/30/20 19:47: Bedside Glucose (Misc Panel) 135H 12/01/20 03:06: Bedside Glucose (Misc Panel) 145H 12/01/20 05:24: Bedside Glucose (Misc Panel) 150H 12/01/20 07:01: Immature Granulocyte % (Auto) 0.9, Neutrophils (%) (Auto) 51.7, Lymphocytes (%) (Auto) 31.7, Monocytes (%) (Auto) 9.7H, Eosinophils (%) (Auto) 4.2H, Basophils (%) (Auto) 1.8H, Neutrophils # (Auto) 3.5, Lymphocytes # (Auto) 2.1, Monocytes # (Auto) 0.7, Eosinophils # (Auto) 0.3, Basophils # (Auto) 0.1, Nucleated Red Blood Cells % (auto) 0.0, Anion Gap 7L, Glomerular Filtration Rate > 60.0, Calcium Level 9.7 Microbiology Microbiology 11/25/20 Urine Culture - Final, Complete Providencia Rettgeri Current Medications Current Medications Current Medications Medications (Trade) Dose Ordered Sig/Adela Route PRN Reason Start Time Stop Time Status Last Admin Dose Admin Acetaminophen (Tylenol Arthritis Er) 650 mg Q8H PO 11/23/20 22:00 12/01/20 05:26 Allopurinol (Zyloprim) 300 mg DAILY PO 11/24/20 09:00 12/01/20 08:21 Baclofen (Lioresal) 10 mg DAILY PO 11/24/20 09:00 11/25/20 10:55 DC 11/25/20 07:54 Baclofen (Lioresal) 10 mg Q12H PO 11/25/20 20:00 11/26/20 08:20 DC 11/26/20 08:16 Baclofen (Lioresal) 20 mg Q12H PO 11/26/20 20:00 12/01/20 08:21 Cyclobenzaprine HCl (Flexeril) 10 mg TID PO 11/23/20 16:00 11/25/20 10:55 DC 11/25/20 07:51 Cyclobenzaprine HCl (Flexeril) 10 mg TID PRN PO SPASMS 11/25/20 10:35 11/29/20 07:50 Dextrose (Dextrose 50%) 25 ml ASDIRECTED PRN IV SEE LABEL COMMENTS 11/23/20 14:05 Docusate Sodium (Colace) 100 mg BID PO 11/23/20 21:00 12/01/20 08:21 Gabapentin (Neurontin) 900 mg TID PO 11/23/20 16:00 12/01/20 08:22 Glimepiride (Amaryl) 2 mg DAILY@0800 PO 11/29/20 08:00 11/30/20 14:28 DC 11/30/20 08:21 Glimepiride (Amaryl) 4 mg DAILY PO 11/23/20 09:00 11/23/20 16:24 DC Glimepiride (Amaryl) 4 mg DAILY@0600 PO 11/23/20 16:22 Cancel Glimepiride (Amaryl) 4 mg DAILY@0800 PO 11/24/20 08:00 11/29/20 00:01 DC 11/28/20 08:33 Glucagon (Glucagon) 1 mg ASDIRECTED PRN SC SEE LABEL COMMENTS 11/23/20 14:05 Glucose (Glucose) 16 GM ASDIRECTED PRN PO SEE LABEL COMMENTS 11/23/20 14:05 Glycerin (Glycerin Adult Suppository) 1 ea DAILYPRN PRN [place] CONSTIPATION 11/23/20 17:45 Heparin Sodium (Porcine) (Heparin) 5,000 units BID SQ 11/23/20 21:00 12/01/20 08:22 Home Med (Med Rec Complete!) ASDIRECTED XX 11/23/20 13:10 11/23/20 13:20 DC Insulin Human Lispro (HumaLOG INSULIN) See Protocol Table AC SC 11/23/20 17:30 11/27/20 17:35 Insulin Human Lispro (HumaLOG INSULIN) See Protocol Table QHS SC 11/24/20 21:00 Lidocaine (Lidoderm Patch) 1 patch DAILY TD 11/24/20 09:00 12/01/20 08:22 Lisinopril (Prinivil) 10 mg DAILY PO 11/24/20 09:00 12/01/20 08:21 Metformin HCl (Glucophage) 500 mg BID@0800,1800 PO 11/29/20 08:00 11/30/20 14:28 DC 11/30/20 08:21 Metformin HCl (Glucophage) 500 mg DAILY@0800 PO 12/01/20 08:00 12/01/20 08:22 Metformin HCl (Glucophage) 1,000 mg BID PO 11/23/20 21:00 11/24/20 10:28 DC 11/24/20 08:40 Metformin HCl (Glucophage) 1,000 mg BID@0800,1800 PO 11/24/20 18:00 11/29/20 00:01 DC 11/28/20 17:06 Multivitamins (Theragram-M) 1 tab DAILY PO 11/24/20 09:00 12/01/20 08:21 Non-Formulary Medication ( See Comment Field Below ) REMOVE LIDODERM PATCH DAILY@21 XX 11/24/20 21:00 11/30/20 20:34 Nortriptyline HCl (Pamelor) 50 mg QHS PO 11/23/20 21:00 11/30/20 20:33 Ondansetron HCl (Zofran) 4 mg Q6HP PRN PO NAUSEA 11/23/20 11:55 Oxycodone HCl (Roxicodone, Oxyir) 10 mg Q8H PRN PO SEVERE PAIN (PS 8-10) 11/23/20 14:05 12/01/20 08:21 Polyethylene Glycol (Miralax) 1 pkt DAILY PO 11/24/20 09:00 11/26/20 09:16 DC 11/24/20 08:41 Senna/Docusate Sodium (Senokot S) 2 tab QHS PO 11/23/20 21:00 11/23/20 21:09 Simvastatin (Zocor) 40 mg DAILY PO 11/24/20 09:00 12/01/20 08:22 Tamsulosin HCl (Flomax) 0.4 mg DAILY PO 11/24/20 09:00 12/01/20 08:22 Trimethoprim/ Sulfamethoxazole (Bactrim Ds, Septra Ds 160mg/ 800mg) 1 tab BID PO 11/26/20 09:00 12/05/20 21:01 12/01/20 08:22 Vitamin D (Vitamin D) 1,000 units DAILY PO 11/24/20 09:00 12/01/20 08:21 DEEDEE BUCKLEY MD Dec 01, 2020 09:09
--- NOTE | 2020-12-01 09:09 | IPNPDOC ---
PM&R Progress Note DATE OF SERVICE: Nov 30, 2020 Business Test Analyst Progress Note Subjective: Patient reporting he has been feeling light headed and thinks his blood sugars have been too low. He also states he is moving his bowels ok at this time. REVIEW OF SYSTEMS: The following is a completed review of systems and has been reviewed. Review of systems otherwise unremarkable. PAIN: low back pain EYES: No recent vision changes. EARS, NOSE, & THROAT: No throat pain, or dysphagia, or rhinorrhea. CARDIOVASCULAR: Denies chest pain or palpitations. PULMONARY: Denies shortness of breath. GASTROINTESTINAL: Denies constipation/diarrhea. However having increasing episodes of bowel incontinence, his status post recent episode of ileus with obstipation GENITOURINARY: requires self cath, urgency and incontinence of bowel and bladder MUSCULOSKELETAL: chronic right shoulder girdle, neck, low back pain NEUROLOGICAL: paresthesias bilateral lower extremities, recent recurrent myoclonic jerks. Right lower extremity HEMATOLOGICAL: non contributory SKIN: Notes his legs and feet were very blanched white until the last surgery after which circulation seemed to have improved and they are warm and pink now PSYCHIATRIC: Unremarkable. All other review of systems found to be negative. ALLERGIES: MRI dye DIET: Regular. PHYSICAL EXAMINATION: VITAL SIGNS: Please see below. GENERAL: Pleasant and cooperative, pale, mild distress. Alert and oriented times three. HEENT: PERRL. Extraocular movements intact right eye strabismus. Clear conjunctiva, no adenopathy or thyromegaly. Full cervical range of motion with tenderness and spasm into right shoulder girdle, upper trapezius. CARDIOVASCULAR: Regular rate and rhythm. No murmurs, rubs, or gallops. LUNGS: Clear to auscultation bilaterally. No wheezes. No rhonchi. ABDOMEN: Soft, nontender, mildly distended. Positive bowel sounds. Normal active bowel sounds. NEUROLOGICAL: Cranial nerves II through XII grossly intact. Sensation grossly intact. EXTREMITIES: 5 /5 electrical instrument technician, elbow flexion, elbow extension, 4/5 left 5-/5 right knee extension, 4-/5 right 3-/5 left foot dorsiflexion, plantar flexion. Distal erythema, no edema. SKIN: intact. Old healed midline lumbosacral incision, fresh healing thoracolumbar incision kristie removed. Right KAYLEY drain site. No drainage. No redness, there is tenderness thoracolumbar region with increased muscle tone. LABORATORY DATA: 11/25/2020 . UA 3+ protein, negative glucose, positive nitrite, 2+ positive leukocyte esterase with sediment and 51 white cells 11/24/2020 , creatinine 0.97, GFR 60, fasting blood sugar 171, 11/18/2020. The CBC 7.8, hemoglobin 13.1, hematocrit 39. 11/16/2020, sodium 138, potassium 3.5, glucose 132, creatinine 0.72 Other resu lts Please see below. IMAGING: Imaging documentation personally reviewed by record. 11/13/2020 XR Abdomen with gaseous distention suggesting ileus 11/15/2020 Mild right abdominal colonic constipation 11/17/2020 . X-ray abdomen, improvement in bowel distention. 11/17/2020, compared with prior studies 01/01/2020, status post posterior fusion T11-12 with intact hardware overlying postoperative changes. Prior posterior decompression fusion at L3 5 degree identified. FUNCTIONAL STATUS: Premorbid: Independent with all activities of daily life as well as mobility using bilateral crutches, straight cath for social continence On Admission: -Supervision to moderate assistance for lower body dressing, shower transfers, stairs. -. Moderate assistance for bathing, upper body dressing, bed chair and wheelchair transfers, toilet transfers, ambulation. - Set up assistance for grooming. - Independent for memory and problem solving. ASSESSMENT: T11-12, stenosis, status post laminectomy, medial facetectomy and posterolateral instrumented fusion. Postoperative ileus, resolving. Neurogenic bladder. UTI/chronic colonization Neurogenic bowel Diabetes Mellitus Peripheral neuropathy. Paraparesis Essential hypertension. Thoracic myelopathy. Neurogenic claudication due to lumbar spinal stenosis. History of Spondylolisthesis, lumbar region. Low back pain. Gait instability. Myofascial pain syndrome. Insomnia. 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 Neurogenic bowel and bladder who presents status post T11-12 laminectomy, medial facetectomy, fusion for comprehensive rehabilitation PLAN: 1. Rehab- PT/OT advance gait and ADLs, strengthen/stretch/maintain ROM all 4 limbs. We'll continue to work on timing pain medication with therapy interventions to optimize possible capacity to participate. Requested orthotiBilateral AFOS and lumbar support for severe kyphosis and stooped posture. E-stim facilitate muscle recovery and reduce pain over the left hip girdle and foreleg. Increased baclofen to 20 twice a day. 2. Neuro- monitor and adjust medications as indicated for pain, bladder function, on Pamelor, will increase PM dose might help with sleep and pain, or additional agent may be indicated. 3. Ortho- chronic neck and low back pain with myofascial component. Transition to Baclofen in addition to Gabapentin, Nucynta usual home med unavailable, substitute post op pain management with Oxycodone/Tylenol, Lidoderm patch. Proceed with usual therapy modalities. 4. Cardiac- stable monitor -HTN -monitor and adjust medications, c/uLisinopril -HLD-monitor and adjust medications 5. Resp -incentive spirometry, monitor for infection 6. Endo- hx of diabetes, SSI, diabetes education, patient with frequent episodes of symptomatic hypoglycemia, will lower metformin dosing and stop glimeperide, c/u to monitor 7. -continue to check urine PVRs, and usual bladder training obtained, UA positive for PROVIDENCIA RETTGERI, c/u Bactrim -refer to urology for neurogenic bladder 8. GI ppx- PPI, laxatives, DC'd miralax and added Metamucil to bulk stool and d aily glycerin suppositories/Digital stim 9. Dispo- [facility] 12[facility]07-[facility], patient is making gains in therapy, however will need to continue to work on safety awareness, will benefit from AFOs training, and s medical issues such as symptomatic hypoglycemia and UTI that can be further monitored and treated on ARU Allergies Coded Allergies: Contrast Media (Verified Adverse Reaction, Mild, nausea/vomiting, 11/23/20) Vital Signs Vital Signs Date Time Temp Pulse Resp B/P (MAP) Pulse Ox O2 Delivery O2 Flow Rate FiO2 12/01/20 08:21 18 12/01/20 08:21 115/65 12/01/20 06:00 97.0 90 91 Room Air Laboratory Data CBC/BMP Laboratory Tests 12/01/20 07:01 Labs 24H Laboratory Tests 2 11/30/20 11:33: Bedside Glucose (Misc Panel) 74L 11/30/20 16:32: Bedside Glucose (Misc Panel) 102 11/30/20 19:47: Bedside Glucose (Misc Panel) 135H 12/01/20 03:06: Bedside Glucose (Misc Panel) 145H 12/01/20 05:24: Bedside Glucose (Misc Panel) 150H 12/01/20 07:01: Immature Granulocyte % (Auto) 0.9, Neutrophils (%) (Auto) 51.7, Lymphocytes (%) (Auto) 31.7, Monocytes (%) (Auto) 9.7H, Eosinophils (%) (Auto) 4.2H, Basophils (%) (Auto) 1.8H, Neutrophils # (Auto) 3.5, Lymphocytes # (Auto) 2.1, Monocytes # (Auto) 0.7, Eosinophils # (Auto) 0.3, Basophils # (Auto) 0.1, Nucleated Red Blood Cells % (auto) 0.0, Anion Gap 7L, Glomerular Filtration Rate > 60.0, Calc ium Level 9.7 Microbiology Microbiology 11/25/20 Urine Culture - Final, Complete Providencia Rettgeri Current Medications Current Medications Current Medications Medications (Trade) Dose Ordered Sig/Adela Route PRN Reason Start Time Stop Time Status Last Admin Dose Admin Acetaminophen (Tylenol Arthritis Er) 650 mg Q8H PO 11/23/20 22:00 12/01/20 05:26 Allopurinol (Zyloprim) 300 mg DAILY PO 11/24/20 09:00 12/01/20 08:21 Baclofen (Lioresal) 10 mg DAILY PO 11/24/20 09:00 11/25/20 10:55 DC 11/25/20 07:54 Baclofen (Lioresal) 10 mg Q12H PO 11/25/20 20:00 11/26/20 08:20 DC 11/26/20 08:16 Baclofen (Lioresal) 20 mg Q12H PO 11/26/20 20:00 12/01/20 08:21 Cyclobenzaprine HCl (Flexeril) 10 mg TID PO 11/23/20 16:00 11/25/20 10:55 DC 11/25/20 07:51 Cyclobenzaprine HCl (Flexeril) 10 mg TID PRN PO SPASMS 11/25/20 10:35 11/29/20 07:50 Dextrose (Dextrose 50%) 25 ml ASDIRECTED PRN IV SEE LABEL COMMENTS 11/23/20 14:05 Docusate Sodium (Colace) 100 mg BID PO 11/23/20 21:00 12/01/20 08:21 Gabapentin (Neurontin) 900 mg TID PO 11/23/20 16:00 12/01/20 08:22 Glimepiride (Amaryl) 2 mg DAILY@0800 PO 11/29/20 08:00 11/30/20 14:28 DC 11/30/20 08:21 Glimepiride (Amaryl) 4 mg DAILY PO 11/23/20 09:00 11/23/20 16:24 DC Glimepiride (Amaryl) 4 mg DAILY@0600 PO 11/23/20 16:22 Cancel Glimepiride (Amaryl) 4 mg DAILY@0800 PO 11/24/20 08:00 11/29/20 00:01 DC 11/28/20 08:33 Glucagon (Glucagon) 1 mg ASDIRECTED PRN SC SEE LABEL COMMENTS 11/23/20 14:05 Glucose (Glucose) 16 GM ASDIRECTED PRN PO SEE LABEL COMMENTS 11/23/20 14:05 Glycerin (Glycerin Adult Suppository) 1 ea DAILYPRN PRN [place] CONSTIPATION 11/23/20 17:45 Heparin Sodium (Porcine) (Heparin) 5,000 units BID SQ 11/23/20 21:00 12/01/20 08:22 Home Med (Med Rec Complete!) ASDIRECTED XX 11/23/20 13:10 11/23/20 13:20 DC Insulin Human Lispro (HumaLOG INSULIN) See Protocol Table AC SC 11/23/20 17:30 11/27/20 17:35 Insulin Human Lispro (HumaLOG INSULIN) See Protocol Table QHS SC 11/24/20 21:00 Lidocaine (Lidoderm Patch) 1 patch DAILY TD 11/24/20 09:00 12/01/20 08:22 Lisinopril (Prinivil) 10 mg DAILY PO 11/24/20 09:00 12/01/20 08:21 Metformin HCl (Glucophage) 500 mg BID@0800,1800 PO 11/29/20 08:00 11/30/20 14:28 DC 11/30/20 08:21 Metformin HCl (Glucophage) 500 mg DAILY@0800 PO 12/01/20 08:00 12/01/20 08:22 Metformin HCl (Glucophage) 1,000 mg BID PO 11/23/20 21:00 11/24/20 10:28 DC 11/24/20 08:40 Metformin HCl (Glucophage) 1,000 mg BID@0800,1800 PO 11/24/20 18:00 11/29/20 00:01 DC 11/28/20 17:06 Multivitamins (Theragram-M) 1 tab DAILY PO 11/24/20 09:00 12/01/20 08:21 Non-Formulary Medication ( See Comment Field Below ) REMOVE LIDODERM PATCH DAILY@ XX 11/24/20 21:00 11/30/20 20:34 Nortriptyline HCl (Pamelor) 50 mg QHS PO 11/23/20 21:00 11/30/20 20:33 Ondansetron HCl (Zofran) 4 mg Q6HP PRN PO NAUSEA 11/23/20 11:55 Oxycodone HCl (Roxicodone, Oxyir) 10 mg Q8H PRN PO SEVERE PAIN (PS 8-10) 11/23/20 14:05 12/01/20 08:21 Polyethylene Glycol (Miralax) 1 pkt DAILY PO 11/24/20 09:00 11/26/20 09:16 DC 11/24/20 08:41 Senna/Docusate Sodium (Senokot S) 2 tab QHS PO 11/23/20 21:00 11/23/20 21:09 Simvastatin (Zocor) 40 mg DAILY PO 11/24/20 09:00 12/01/20 08:22 Tamsulosin HCl (Flomax) 0.4 mg DAILY PO 11/24/20 09:00 12/01/20 08:22 Trimethoprim/ Sulfamethoxazole (Bactrim Ds, Septra Ds 160mg/ 800mg) 1 tab BID PO 11/26/20 09:00 12/05/20 21:01 12/01/20 08:22 Vitamin D (Vitamin D) 1,000 units DAILY PO 11/24/20 09:00 12/01/20 08:21 DEEDEE BUCKLEY MD Dec 01, 2020 09:09
[2020-12-01] MEDS: CYCLOBENZAPRINE 10MG TABLET PO PRN ×3 (10:33→21:09)
[2020-12-01] MEDS ORDERED: LIDOCAINE 5% (LIDODERM) PATCH TD ONE (13:30)
[2020-12-01 14:00] VITALS: BP 113/65
[2020-12-01] MEDS ORDERED: BISACODYL 10 MG SUPP PR SCH (17:00)
[2020-12-01 20:00] VITALS: BP 121/61
[2020-12-01] MEDS ORDERED: **NOTE PATIENT COMMENT** MISC XX SCH (21:00)
[2020-12-01] MEDS: NORTRIPTYLINE 25 MG CAP PO SCH (21:08)
[2020-12-01] MEDS: **NOTE PATIENT COMMENT** MISC XX SCH (21:12)
[2020-12-01] MEDS: SENOKOT S TAB PO SCH (21:17)
[2020-12-02] MEDS: ACETAMINOPHEN 650MG ER TAB (TYLENOL ARTHRITIS) PO SCH ×3 (05:57→21:24)
[2020-12-02 06:00] VITALS: BP 117/65
[2020-12-02 07:39] LABS: HEMATOCRIT 43.3 % (42.0-52.0); HEMOGLOBIN 13.9 g/dl (13.5-17.5); MEAN CORPUSCULAR HEMOGLOBIN 31.4 pg (27.0-33.0); MEAN CORPUSCULAR HGB CONC 32.1 g/dl (32.0-36.5); PLATELET COUNT, AUTOMATED 383 10^3/uL (150-450); RED BLOOD COUNT 4.42 10^6/uL (4.30-6.10); WHITE BLOOD COUNT 6.6 10^3/uL (4.0-10.0)
[2020-12-02 07:58] LABS: BLOOD UREA NITROGEN 14 MG/DL (7-18); CARBON DIOXIDE LEVEL 28 MEQ/L (21-32); CHLORIDE LEVEL 104 MEQ/L (98-107); CREATININE FOR GFR 0.95 MG/DL (0.70-1.30); GLOMERULAR FILTRATION RATE > 60.0 (>49); GLUCOSE, FASTING 149 MG/DL (70-100); POTASSIUM SERUM 4.4 MEQ/L (3.5-5.1); SODIUM LEVEL 136 MEQ/L (136-145)
[2020-12-02] MEDS: LIDOCAINE 5% (LIDODERM) PATCH TD SCH (08:43)
[2020-12-02] MEDS: HEPARIN SOD (PORCINE) 5000UNITS/ML 1ML VIAL/SYRINGE SQ SCH ×2 (08:44→21:19)
[2020-12-02] MEDS ORDERED: FLEET ENEMA PR ONE (08:45)
[2020-12-02] MEDS ORDERED: MAGNESIUM CITRATE 300 ML BTL PO ONE (10:25)
[2020-12-02] MEDS: BACTRIM 160MG/800MG DS TAB PO SCH ×2 (10:28→21:18)
[2020-12-02] MEDS: metFORMIN (GLUCOPHAGE) 500MG TAB PO SCH (10:28)
[2020-12-02] MEDS: TAMSULOSIN 0.4 MG CAP PO SCH (10:28)
[2020-12-02] MEDS: MULTIVITAMINS/MINERALS THERAP 1 TAB PO SCH (10:29)
[2020-12-02] MEDS: GABAPENTIN 300 MG CAP PO SCH ×3 (10:29→21:18)
[2020-12-02] MEDS: SIMVASTATIN 40 MG TAB PO SCH (10:29)
[2020-12-02] MEDS: VITAMIN D 1,000 INTERNATIONAL UNITS TABLET PO SCH (10:29)
[2020-12-02] MEDS: BACLOFEN 10 MG TAB PO SCH ×2 (10:30→21:18)
[2020-12-02] MEDS: allopurinoL 300 MG TAB PO SCH (10:30)
[2020-12-02] MEDS: CYCLOBENZAPRINE 10MG TABLET PO PRN (10:30)
[2020-12-02] MEDS: DOCUSATE SODIUM 100MG CAPSULE PO SCH ×3 (10:30→21:18)
[2020-12-02] MEDS: oxyCODONE 5MG TAB PO PRN (10:32)
--- NOTE | 2020-12-02 11:12 | IPNPDOC ---
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 He still feels like he is backed up. REVIEW OF SYSTEMS: The following is a completed review of systems and has been reviewed. Review of systems otherwise unremarkable. PAIN: low back pain EYES: No recent vision changes. EARS, NOSE, & THROAT: No throat pain, or dysphagia, or rhinorrhea. CARDIOVASCULAR: Denies chest pain or palpitations. PULMONARY: Denies shortness of breath. GASTROINTESTINAL: +constipation with neurogenic bowel GENITOURINARY: requires self cath, urgency and incontinence of bowel and bladder MUSCULOSKELETAL: chronic right shoulder girdle, neck, low back pain NEUROLOGICAL: paresthesias bilateral lower extremities, recent recurrent myoclonic jerks. Right lower extremity HEMATOLOGICAL: non contributory SKIN: Notes his legs and feet were very blanched white until the last surgery after which circulation seemed to have improved and they are warm and pink now PSYCHIATRIC: Unremarkable. All other review of systems found to be negative. PHYSICAL EXAMINATION: VITAL SIGNS: Please see below. GENERAL: Pleasant and cooperative, pale, mild distress. Alert and oriented times three. HEENT: PERRL. Extraocular movements intact right eye strabismus. Clear conjunctiva, no adenopathy or thyromegaly. Full cervical range of motion with tenderness and spasm into right shoulder girdle, upper trapezius. CARDIOVASCULAR: Regular rate and rhythm. No murmurs, rubs, or gallops. LUNGS: Clear to auscultation bilaterally. No wheezes. No rhonchi. ABDOMEN: mildly, mostly soft, distended, hypoactive bowel sounds, mildly TTP NEUROLOGICAL: Cranial nerves II through XII grossly intact. Sensation grossly intact. EXTREMITIES: 5 /5 sprinkler worker, elbow flexion, elbow extension, 4/5 left 5-/5 right knee extension, 4-/5 right 3-/5 left foot dorsiflexion, plantar flexion. Distal erythema, no edema. SKIN: intact. Old healed midline lumbosacral incision, fresh healing thoracolumbar incision kristie removed. Right KAYLEY drain site. No drainage. 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 Neurogenic bowel and bladder who presents status post T11-12 laminectomy, medial facetectomy, fusion for comprehensive rehabilitation PLAN: 1. Rehab- PT/OT advance gait and ADLs, strengthen/stretch/maintain ROM all 4 limbs. We'll continue to work on timing pain medication with therapy interventions to optimize possible capacity to participate. 2. Neuro- monitor and adjust medications as indicated for pain, bladder function, on Pamelor 3. Ortho- chronic neck and low back pain with myofascial component. Transition to Baclofen in addition to Gabapentin, Nucynta usual home med unavailable, substitute post op pain management with Oxycodone/Tylenol, Lidoderm patch. Proceed with usual therapy modalities. 4. Cardiac- stable monitor -HTN -monitor and adjust medications, c/uLisinopril -HLD-monitor and adjust medications 5. Resp -incentive spirometry, monitor for infection 6. Endo- hx of diabetes, SSI, diabetes education, patient with frequent episodes of symptomatic hypoglycemia, c/u on lower metformin dosing, d/c'd glimeperide, c/u to monitor 7. -continue to check urine PVRs, and usual bladder training obtained, UA positive for PROVIDENCIA RETTGERI, c/u Bactrim -refer to urology for neurogenic bladder 8. GI ppx-patient with neurogenic bowel, per charting it looks like he has not been taking scheduled Senokot or glycerin suppository, switched to bisacodyl suppositories which he used last night and he states he only went very little, fleet enema ordered today and mag citrate, nurse will continue to use dig-stim to help evacuate rectum -patient educated on importance of taking senna to move his bowels along as he had only been taking colace regularly, and that suppositories (possibly with dig stim) will active the recto-colic reflex, he is agreeable to trying senna at noon with suppository around dinner time to try to schedule his bowel movements at night -will c/u to aim to empty his bowels as quickly as possible today 9. Dispo- [facility] 12[facility]07[facility], patient is making gains in therapy, however will need to continue to work on safety awareness, will benefit from AFOs training, and s medical issues such as symptomatic hypoglycemia and UTI that can be further monitored and treated on ARU, additionally patient's neurogenic bowel has not been sufficiently treated and he would benefit from more training to regulate his bowels prior to going home Allergies Coded Allergies: Contrast Media (Verified Adverse Reaction, Mild, nausea/vomiting, 11/23/20) Vital Signs Vital Signs Date Time Temp Pulse Resp B/P (MAP) Pulse Ox O2 Delivery O2 Flow Rate FiO2 12/02/20 10:32 18 Room Air 12/02/20 10:30 117/65 12/02/20 06:00 97.1 90 97 Laboratory Data CBC/BMP Laboratory Tests 12/02/20 07:11 Labs 24H Laboratory Tests 2 12/01/20 12:07: Bedside Glucose (Misc Panel) 111 12/01/20 14:10: Bedside Glucose (Misc Panel) 178H 12/01/20 16:34: Bedside Glucose (Misc Panel) 170H 12/01/20 20:54: Bedside Glucose (Misc Panel) 184H 12/02/20 07:11: Nucleated Red Blood Cells % (auto) 0.0, Anion Gap 4L, Glomerular Filtration Rate > 60.0, Calcium Level 9.0 Microbiology Microbiology 11/25/20 Urine Culture - Final, Complete Providencia Rettgeri Current Medications Current Medications Current Medications Medications (Trade) Dose Ordered Sig/Adela Route PRN Reason Start Time Stop Time Status Last Admin Dose Admin Acetaminophen (Tylenol Arthritis Er) 650 mg Q8H PO 11/23/20 22:00 12/02/20 05:57 Allopurinol (Zyloprim) 300 mg DAILY PO 11/24/20 09:00 12/02/20 10:30 Baclofen (Lioresal) 10 mg DAILY PO 11/24/20 09:00 11/25/20 10:55 DC 11/25/20 07:54 Baclofen (Lioresal) 10 mg Q12H PO 11/25/20 20:00 11/26/20 08:20 DC 11/26/20 08:16 Baclofen (Lioresal) 20 mg Q12H PO 11/26/20 20:00 12/02/20 10:30 Bisacodyl (Dulcolax Suppository) 10 mg DAILY@1700 [place] 12/01/20 17:00 12/02/20 09:28 DC 12/01/20 16:29 Bisacodyl (Dulcolax Suppository) 10 mg DAILY@2000 [place] 12/02/20 20:00 Cyclobenzaprine HCl (Flexeril) 10 mg TID PO 11/23/20 16:00 11/25/20 10:55 DC 11/25/20 07:51 Cyclobenzaprine HCl (Flexeril) 10 mg TID PRN PO SPASMS 11/25/20 10:35 12/02/20 10:30 Dextrose (Dextrose 50%) 25 ml ASDIRECTED PRN IV SEE LABEL COMMENTS 11/23/20 14:05 Docusate Sodium (Colace) 100 mg BID PO 11/23/20 21:00 12/02/20 09:28 DC 12/01/20 21:08 Docusate Sodium (Colace) 100 mg TID PO 12/02/20 09:00 12/02/20 10:30 Gabapentin (Neurontin) 900 mg TID PO 11/23/20 16:00 12/02/20 10:29 Glimepiride (Amaryl) 2 mg DAILY@0800 PO 11/29/20 08:00 11/30/20 14:28 DC 11/30/20 08:21 Glimepiride (Amaryl) 4 mg DAILY PO 11/23/20 09:00 11/23/20 16:24 DC Glimepiride (Amaryl) 4 mg DAILY@0600 PO 11/23/20 16:22 Cancel Glimepiride (Amaryl) 4 mg DAILY@0800 PO 11/24/20 08:00 11/29/20 00:01 DC 11/28/20 08:33 Glucagon (Glucagon) 1 mg ASDIRECTED PRN SC SEE LABEL COMMENTS 11/23/20 14:05 Glucose (Glucose) 16 GM ASDIRECTED PRN PO SEE LABEL COMMENTS 11/23/20 14:05 Glycerin (Glycerin Adult Suppository) 1 ea DAILYPRN PRN [place] CONSTIPATION 11/23/20 17:45 12/01/20 12:57 DC Heparin Sodium (Porcine) (Heparin) 5,000 units BID SQ 11/23/20 21:00 12/02/20 08:44 Home Med (Med Rec Complete!) ASDIRECTED XX 11/23/20 13:10 11/23/20 13:20 DC Insulin Human Lispro (HumaLOG INSULIN) See Protocol Table AC SC 11/23/20 17:30 12/01/20 09:59 DC 11/27/20 17:35 Insulin Human Lispro (HumaLOG INSULIN) See Protocol Table QHS SC 11/24/20 21:00 12/01/20 09:59 DC Lidocaine (Lidoderm Patch) 1 patch DAILY TD 11/24/20 09:00 12/01/20 23:59 DC 12/01/20 08:22 Lidocaine (Lidoderm Patch) 2 patch DAILY TD 12/02/20 09:00 12/02/20 08:43 Lisinopril (Prinivil) 10 mg DAILY PO 11/24/20 09:00 12/02/20 10:30 Metformin HCl (Glucophage) 500 mg BID@0800,1800 PO 11/29/20 08:00 11/30/20 14:28 DC 11/30/20 08:21 Metformin HCl (Glucophage) 500 mg DAILY@0800 PO 12/01/20 08:00 12/02/20 10:28 Metformin HCl (Glucophage) 1,000 mg BID PO 11/23/20 21:00 11/24/20 10:28 DC 11/24/20 08:40 Metformin HCl (Glucophage) 1,000 mg BID@0800,1800 PO 11/24/20 18:00 11/29/20 00:01 DC 11/28/20 17:06 Multivitamins (Theragram-M) 1 tab DAILY PO 11/24/20 09:00 12/02/20 10:29 Non-Formulary Medication ( See Comment Field Below ) REMOVE LIDODERM PATCH DAILY@ XX 12/01/20 21:00 12/01/20 13:18 DC Non-Formulary Medication ( See Comment Field Below ) REMOVE LIDODERM PATCHE... DAILY@ XX 11/24/20 21:00 12/01/20 21:12 Nortriptyline HCl (Pamelor) 50 mg QHS PO 11/23/20 21:00 12/01/20 21:08 Ondansetron HCl (Zofran) 4 mg Q6HP PRN PO NAUSEA 11/23/20 11:55 12/02/20 08:43 Oxycodone HCl (Roxicodone, Oxyir) 10 mg Q8H PRN PO SEVERE PAIN (PS 8-10) 11/23/20 14:05 12/02/20 10:32 Polyethylene Glycol (Miralax) 1 pkt DAILY PO 11/24/20 09:00 11/26/20 09:16 DC 11/24/20 08:41 Senna (Senokot) 2 tab DAILY@1200 PO 12/02/20 12:00 Senna/Docusate Sodium (Senokot S) 2 tab QHS PO 11/23/20 21:00 12/02/20 09:28 DC 12/01/20 21:17 Simvastatin (Zocor) 40 mg DAILY PO 11/24/20 09:00 12/02/20 10:29 Tamsulosin HCl (Flomax) 0.4 mg DAILY PO 11/24/20 09:00 12/02/20 10:28 Trimethoprim/ Sulfamethoxazole (Bactrim Ds, Septra Ds 160mg/ 800mg) 1 tab BID PO 11/26/20 09:00 12/05/20 21:01 12/02/20 10:28 Vitamin D (Vitamin D) 1,000 units DAILY PO 11/24/20 09:00 12/02/20 10:29 DEEDEE BUCKLEY MD Dec 02, 2020 11:12
[2020-12-02] MEDS: SENNA 8.6 MG TAB (SENOKOT) PO SCH (12:49)
[2020-12-02 14:12] VITALS: BP 131/59
[2020-12-02 14:20] VITALS: BP 111/66
[2020-12-02] MEDS: BISACODYL 10 MG SUPP PR SCH ×2 (18:29→21:19)
[2020-12-02 20:00] VITALS: BP 118/64
[2020-12-02] MEDS ORDERED: BISACODYL 10 MG SUPP PR SCH (20:00)
[2020-12-02] MEDS: NORTRIPTYLINE 25 MG CAP PO SCH (21:18)
[2020-12-02] MEDS: **NOTE PATIENT COMMENT** MISC XX SCH (21:21)
[2020-12-03] MEDS: ACETAMINOPHEN 650MG ER TAB (TYLENOL ARTHRITIS) PO SCH ×3 (05:31→21:06)
[2020-12-03 06:00] VITALS: BP 125/67
[2020-12-03 07:35] LABS: BLOOD UREA NITROGEN 12 MG/DL (7-18); CALCIUM LEVEL 9.1 MG/DL (8.8-10.2); CARBON DIOXIDE LEVEL 27 MEQ/L (21-32); CHLORIDE LEVEL 104 MEQ/L (98-107); CREATININE FOR GFR 0.95 MG/DL (0.70-1.30); GLOMERULAR FILTRATION RATE > 60.0 (>49); GLUCOSE, FASTING 148 MG/DL (70-100); POTASSIUM SERUM 4.7 MEQ/L (3.5-5.1); SODIUM LEVEL 136 MEQ/L (136-145)
[2020-12-03] MEDS: SIMVASTATIN 40 MG TAB PO SCH (10:08)
[2020-12-03] MEDS: GABAPENTIN 300 MG CAP PO SCH ×3 (10:08→20:23)
[2020-12-03] MEDS: CYCLOBENZAPRINE 10MG TABLET PO PRN (10:08)
[2020-12-03] MEDS: DOCUSATE SODIUM 100MG CAPSULE PO SCH ×3 (10:09→20:22)
[2020-12-03] MEDS: TAMSULOSIN 0.4 MG CAP PO SCH (10:11)
[2020-12-03] MEDS: BACLOFEN 10 MG TAB PO SCH ×2 (10:11→20:22)
[2020-12-03] MEDS: allopurinoL 300 MG TAB PO SCH (10:11)
[2020-12-03] MEDS: VITAMIN D 1,000 INTERNATIONAL UNITS TABLET PO SCH (10:11)
[2020-12-03] MEDS: metFORMIN (GLUCOPHAGE) 500MG TAB PO SCH (10:11)
[2020-12-03] MEDS: MULTIVITAMINS/MINERALS THERAP 1 TAB PO SCH (10:11)
[2020-12-03] MEDS: BACTRIM 160MG/800MG DS TAB PO SCH ×2 (10:11→20:22)
[2020-12-03] MEDS: HEPARIN SOD (PORCINE) 5000UNITS/ML 1ML VIAL/SYRINGE SQ SCH (10:12)
[2020-12-03] MEDS: LIDOCAINE 5% (LIDODERM) PATCH TD SCH (10:13)
--- NOTE | 2020-12-03 11:39 | IPNPDOC ---
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 He denies having any chest pressure or shortness of breath and does not realize that his oxygen saturations are dropping to low 90s. REVIEW OF SYSTEMS: The following is a completed review of systems and has been reviewed. Review of systems otherwise unremarkable. PAIN: low back pain EYES: No recent vision changes. EARS, NOSE, & THROAT: No throat pain, or dysphagia, or rhinorrhea. CARDIOVASCULAR: Denies chest pain or palpitations. PULMONARY: Denies shortness of breath. GASTROINTESTINAL: +constipation with neurogenic bowel (improving) GENITOURINARY: requires self cath, urgency and incontinence of bowel and bladder MUSCULOSKELETAL: chronic right shoulder girdle, neck, low back pain NEUROLOGICAL: paresthesias bilateral lower extremities, recent recurrent myoc lonic jerks. Right lower extremity HEMATOLOGICAL: non contributory SKIN: Notes his legs and feet were very blanched white until the last surgery after which circulation seemed to have improved and they are warm and pink now PSYCHIATRIC: Unremarkable. All other review of systems found to be negative. PHYSICAL EXAMINATION: VITAL SIGNS: Please see below. GENERAL: Pleasant and cooperative, pale, mild distress. Alert and oriented times three. HEENT: PERRL. Extraocular movements intact right eye strabismus. Clear conjunctiva, no adenopathy or thyromegaly. Full cervical range of motion with tenderness and spasm into right shoulder girdle, upper trapezius. CARDIOVASCULAR: Regular rate and rhythm. No murmurs, rubs, or gallops. LUNGS: Clear to auscultation bilaterally. No wheezes. No rhonchi. ABDOMEN: mildly, mostly soft, distended, hypoactive bowel sounds, mildly TTP NEUROLOGICAL: Cranial nerves II through XII grossly intact. Sensation grossly intact. EXTREMITIES: 5 /5 healthcare marketer, elbow flexion, elbow extension, 4/5 left 5-/5 right knee extension, 4-/5 right 3-/5 left foot dorsiflexion, plantar flexion. Distal erythema, no edema. SKIN: intact. Old healed midline lumbosacral incision, fresh healing thoracolumbar incision kristie removed. Right KAYLEY drain site. No drainage. 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 Neurogenic bowel and bladder who presents status post T11-12 laminectomy, medial facetectomy, fusion for comprehensive rehabilitation PLAN: 1. Rehab- PT/OT advance gait and ADLs, strengthen/stretch/maintain ROM all 4 limbs. We'll continue to work on timing pain medication with therapy interventions to optimize possible capacity to participate. 2. Neuro- monitor and adjust medications as indicated for pain, bladder function, on Pamelor 3. Ortho- chronic neck and low back pain with myofascial component. Transition to Baclofen in addition to Gabapentin, Nucynta usual home med unavailable, substitute post op pain management with Oxycodone/Tylenol, Lidoderm patch. Proceed with usual therapy modalities. 4. Cardiac- stable monitor -HTN -monitor and adjust medications, c/uLisinopril -HLD-monitor and adjust medications 5. Resp -incentive spirometry, monitor for infection, concern for possible PE given tachycardia and low 90's 02 saturations, will order Dopplers 6. Endo- hx of diabetes, SSI, diabetes education, patient with frequent episodes of symptomatic hypoglycemia, c/u on lower metformin dosing, d/c'd glimeperide, c/u to monitor 7. -continue to check urine PVRs, and usual bladder training obtained, UA positive for PROVIDENCIA RETTGERI, c/u Bactrim -refer to urology for neurogenic bladder 8. GI ppx-patient with neurogenic bowel, per charting it looks like he has not been taking scheduled Senokot or glycerin suppository, switched to bisacodyl suppositories which he used last night and he states he only went very little, fleet enema ordered today and mag citrate, nurse will continue to use dig-stim to help evacuate rectum -patient educated on importance of taking senna to move his bowels along as he had only been taking colace regularly, and that suppositories (possibly with dig stim) will active the recto-colic reflex, he is agreeable to trying senna at noon with suppository around dinner time to try to schedule his bowel movements at night- he is beginning to move his bowels 9. DVT ppx- on heparin, no giana's sign or obvious clinical signs of DVTs, but given tachycardia and drops in 02 will order Dopplers to look for DVTs and possibly PE pending doppler results 10. Dispo- [facility] 12-07-[facility], patient is making gains in therapy, however will need to continue to work on safety awareness, will benefit from AFOs training, and s medical issues such as symptomatic hypoglycemia and UTI that can be further monitored and treated on ARU, additionally patient's neurogenic bowel has not been sufficiently treated and he would benefit from more training to regulate his bowels prior to going home Allergies Coded Allergies: Contrast Media (Verified Adverse Reaction, Mild, nausea/vomiting, 11/23/20) Vital Signs Vital Signs Date Time Temp Pulse Resp B/P (MAP) Pulse Ox O2 Delivery O2 Flow Rate FiO2 12/03/20 10:17 168/76 12/03/20 06:00 97.6 99 20 94 Room Air Laboratory Data CBC/BMP Laboratory Tests 12/03/20 06:49 Labs 24H Laboratory Tests 2 12/02/20 11:53: Bedside Glucose (Misc Panel) 141H 12/02/20 16:46: Bedside Glucose (Misc Panel) 107 12/02/20 20:11: Bedside Glucose (Misc Panel) 185H 12/03/20 06:01: Bedside Glucose (Misc Panel) 154H 12/03/20 06:49: Anion Gap 5L, Glomerular Filtration Rate > 60.0, Calcium Level 9.1 Microbiology Microbiology 11/25/20 Urine Culture - Final, Complete Providencia Rettgeri Current Medications Current Medications Current Medications Medications (Trade) Dose Ordered Sig/Adela Route PRN Reason Start Time Stop Time Status Last Admin Dose Admin Acetaminophen (Tylenol Arthritis Er) 650 mg Q8H PO 11/23/20 22:00 12/03/20 05:31 Allopurinol (Zyloprim) 300 mg DAILY PO 11/24/20 09:00 12/03/20 10:11 Baclofen (Lioresal) 10 mg DAILY PO 11/24/20 09:00 11/25/20 10:55 DC 11/25/20 07:54 Baclofen (Lioresal) 10 mg Q12H PO 11/25/20 20:00 11/26/20 08:20 DC 11/26/20 08:16 Baclofen (Lioresal) 20 mg Q12H PO 11/26/20 20:00 12/03/20 10:11 Bisacodyl (Dulcolax Suppository) 10 mg DAILY@1700 [place] 12/01/20 17:00 12/02/20 09:28 DC 12/01/20 16:29 Bisacodyl (Dulcolax Suppository) 10 mg DAILY@1999 [place] 12/02/20 19:00 12/02/20 21:19 Bisacodyl (Dulcolax Suppository) 10 mg DAILY@1999 [place] 12/02/20 20:00 12/02/20 14:08 DC Cyclobenzaprine HCl (Flexeril) 10 mg TID PO 11/23/20 16:00 11/25/20 10:55 DC 11/25/20 07:51 Cyclobenzaprine HCl (Flexeril) 10 mg TID PRN PO SPASMS 11/25/20 10:35 12/03/20 10:08 Dextrose (Dextrose 50%) 25 ml ASDIRECTED PRN IV SEE LABEL COMMENTS 11/23/20 14:05 Docusate Sodium (Colace) 100 mg BID PO 11/23/20 21:00 12/02/20 09:28 DC 12/01/20 21:08 Docusate Sodium (Colace) 100 mg TID PO 12/02/20 09:00 12/03/20 10:09 Gabapentin (Neurontin) 900 mg TID PO 11/23/20 16:00 12/03/20 10:08 Glimepiride (Amaryl) 2 mg DAILY@0800 PO 11/29/20 08:00 11/30/20 14:28 DC 11/30/20 08:21 Glimepiride (Amaryl) 4 mg DAILY PO 11/23/20 09:00 11/23/20 16:24 DC Glimepiride (Amaryl) 4 mg DAILY@0600 PO 11/23/20 16:22 Cancel Glimepiride (Amaryl) 4 mg DAILY@0800 PO 11/24/20 08:00 11/29/20 00:01 DC 11/28/20 08:33 Glucagon (Glucagon) 1 mg ASDIRECTED PRN SC SEE LABEL COMMENTS 11/23/20 14:05 Glucose (Glucose) 16 GM ASDIRECTED PRN PO SEE LABEL COMMENTS 11/23/20 14:05 Glycerin (Glycerin Adult Suppository) 1 ea DAILYPRN PRN [place] CONSTIPATION 11/23/20 17:45 12/01/20 12:57 DC Heparin Sodium (Porcine) (Heparin) 5,000 units BID SQ 11/23/20 21:00 12/03/20 10:12 Home Med (Med Rec Complete!) ASDIRECTED XX 11/23/20 13:10 11/23/20 13:20 DC Insulin Human Lispro (HumaLOG INSULIN) See Protocol Table AC SC 11/23/20 17:30 12/01/20 09:59 DC 11/27/20 17:35 Insulin Human Lispro (HumaLOG INSULIN) See Protocol Table QHS SC 11/24/20 21:00 12/01/20 09:59 DC Lidocaine (Lidoderm Patch) 1 patch DAILY TD 11/24/20 09:00 12/01/20 23:59 DC 12/01/20 08:22 Lidocaine (Lidoderm Patch) 2 patch DAILY TD 12/02/20 09:00 12/03/20 10:13 Lisinopril (Prinivil) 10 mg DAILY PO 11/24/20 09:00 12/03/20 10:17 Metformin HCl (Glucophage) 500 mg BID@0800,1800 PO 11/29/20 08:00 11/30/20 14:28 DC 11/30/20 08:21 Metformin HCl (Glucophage) 500 mg DAILY@0800 PO 12/01/20 08:00 12/03/20 10:11 Metformin HCl (Glucophage) 1,000 mg BID PO 11/23/20 21:00 11/24/20 10:28 DC 11/24/20 08:40 Metformin HCl (Glucophage) 1,000 mg BID@0800,1800 PO 11/24/20 18:00 11/29/20 00:01 DC 11/28/20 17:06 Multivitamins (Theragram-M) 1 tab DAILY PO 11/24/20 09:00 12/03/20 10:11 Non-Formulary Medication ( See Comment Field Below ) REMOVE LIDODERM PATCH DAILY@21 XX 12/01/20 21:00 12/01/20 13:18 DC Non-Formulary Medication ( See Comment Field Below ) REMOVE LIDODERM PATCHE... DAILY@21 XX 11/24/20 21:00 12/02/20 21:21 Nortriptyline HCl (Pamelor) 50 mg QHS PO 11/23/20 21:00 12/02/20 21:18 Ondansetron HCl (Zofran) 4 mg Q6HP PRN PO NAUSEA 11/23/20 11:55 12/02/20 08:43 Oxycodone HCl (Roxicodone, Oxyir) 10 mg Q8H PRN PO SEVERE PAIN (PS 8-10) 11/23/20 14:05 12/02/20 10:32 Polyethylene Glycol (Miralax) 1 pkt DAILY PO 11/24/20 09:00 11/26/20 09:16 DC 11/24/20 08:41 Senna (Senokot) 2 tab DAILY@1200 PO 12/02/20 12:00 12/02/20 12:49 Senna/Docusate Sodium (Senokot S) 2 tab QHS PO 11/23/20 21:00 12/02/20 09:28 DC 12/01/20 21:17 Simvastatin (Zocor) 40 mg DAILY PO 11/24/20 09:00 12/03/20 10:08 Tamsulosin HCl (Flomax) 0.4 mg DAILY PO 11/24/20 09:00 12/03/20 10:11 Trimethoprim/ Sulfamethoxazole (Bactrim Ds, Septra Ds 160mg/ 800mg) 1 tab BID PO 11/26/20 09:00 12/05/20 21:01 12/03/20 10:11 Vitamin D (Vitamin D) 1,000 units DAILY PO 11/24/20 09:00 12/03/20 10:11 DEDEEE BUCKLEY MD Dec 03, 2020 11:39
[2020-12-03] MEDS: SENNA 8.6 MG TAB (SENOKOT) PO SCH (12:33)
[2020-12-03 14:00] VITALS: BP 121/64
[2020-12-03] MEDS: METOPROLOL TART 12.5 MG PER 1/2 TAB PO SCH ×2 (15:24→21:06)
--- NOTE | 2020-12-03 15:30 | REP ---
INDICATION: immobility. COMPARISON: None. TECHNIQUE: Multiple ultrasonographic images of the deep venous structures of the bilateral lower extremity were obtained from the inguinal ligament to the ankle. Venous compression techniques, color doppler imaging, and augmentation techniques were also obtained where appropriate. As per the ACR guidelines the anterior tibial vein can not be effectively evaluated. Only compression techniques in the calf on the peroneal and posterior tibial veins was attempted/performed. FINDINGS: There is no abnormal echogenic material seen within any of the visualized deep venous structures that would suggest acute thrombosis. Coaptation is unremarkable throughout. Doppler interrogation shows an expected response to respiratory variability and augmentation in the thigh. Compression techniques in the calf showed inability to achieve coaptation in the peroneal vein bilaterally and in the posterior tibial vein on the right. The color flow images show what appears to be a normal vascular pattern throughout the thigh. IMPRESSION: There is evidence of bilateral calf vein DVT as described above. <Electronically signed by Jose Mcphreson > 12/03/20 2018
--- NOTE | 2020-12-03 19:04 | IPNPDOC ---
Subjective Date Seen The patient was seen on 12/03/20. Subjective Chief Complaint/HPI Mr. Vieira is a 65 year old male with recent spinal surgery on 11/11 at [facility] who is here for rehabilitation. Today, his oxygenation was in the low 90s. Since patient has allergy to contrast media, US lower extremity was obtained. Demonstrated bilateral DVT. I reached out to [facility] neurosurgery and spoke with the neurosurgeon construction superintendent, Dr. Cooper. He tells me that patient is okay to start on anticoagulation. Otherwise, when I spoke with the patient, he denies dyspnea or chest pain. He is not on oxygen. He denies any known history of GI bleed or ICH. I explained to him he should watch for signs of bleeding such as lightheadedness, dyspnea, melena, hematochezia, hematuria, or hematemesis. Objective Physical Examination General Exam: Positive: Alert, Cooperative Eye Exam: Negative: Sclera icteric Chest Exam: Positive: Clear to auscultation; Negative: Rales, Rhonchi, Wheezing Heart Exam: Positive: Tachycardic, Regular Rhythm Abdomen Exam: Positive: Normal bowel sounds, Soft; Negative: Tenderness Neuro Exam: Positive: Normal Speech Psych Exam: Positive: Mental status NL, Mood NL Assessment /Plan Assessment Mr. Vieira is a 65 year old male with recent spinal surgery on 11/11 at [facility] who is here for rehabilitation. Due to his recent surgery, he most likely has a provoked VTE. Will start patient on anticoagulation, and patient will need to stay on anticoagulation for at least 3 months. Patient should follow up with PCP about decision to continue or stop. Otherwise, I spoke with the [facility] neurosurgeon, Dr. Cooper, who was okay with me starting patient on anticoagulation. Plan/VTE VTE Prophylaxis Ordered?: Yes Plan 1. Generalized deconditioning s/p recent surgery at [facility] -Per primary team PMR 2. Provoked DVT -Bilateral DVT -Spoke with [facility] neurosurgery, Dr. Cooper. Okay for anticoagulation -Suspected possible PE. Treat the same as DVT -Apixaban 10mg BID for 7 days, then transition to 5mg BID for 3 months. Primary to decide on continuing or discontinuing anticoagulation 3. Hypertension -Continue lisinopril and Lopressor 4. Dyslipidemia -Simvastatin 5. DVT ppx -On apixaban Disposition: Per ARU VS, I&O, 24H, [place] Vital Signs/I&O Vital Signs Date Time Temp Pulse Resp B/P (MAP) Pulse Ox O2 Delivery O2 Flow Rate FiO2 12/03/20 15:24 90 104/62 12/03/20 14:00 98.1 16 95 Room Air I&O- Last 24 Hours up to 6 AM 12/03/20 06:00 Intake Total 930 ml Output Total 1600 ml Balance -670 ml Laboratory Data 24H LABS Laboratory Tests 2 12/02/20 20:11: Bedside Glucose (Misc Panel) 185H 12/03/20 06:01: Bedside Glucose (Misc Panel) 154H 12/03/20 06:49: Anion Gap 5L, Glomerular Filtration Rate > 60.0, Calcium Level 9.1 12/03/20 11:39: Bedside Glucose (Misc Panel) 150H 12/03/20 16:37: Bedside Glucose (Misc Panel) 133H 12/03/20 17:00: D-Dimer, Quantitative 2268.67H CBC/BMP Laboratory Tests 12/03/20 06:49 Microbiology Microbiology 11/25/20 Urine Culture - Final, Complete Providencia Rettgeri LILLIANA GUTIERREZ DO Dec 03, 2020 19:04
[2020-12-03 19:37] LABS: INR 0.97; PROTHROMBIN TIME 13.1 SECONDS (12.5-14.3)
[2020-12-03 19:38] LABS: PARTIAL THROMBOPLASTIN TIME 25.1 SECONDS (24.2-38.5)
[2020-12-03 20:00] VITALS: BP 110/64
[2020-12-03] MEDS: APIXABAN 5 MG TAB (ELIQUIS) PO SCH (20:22)
[2020-12-03] MEDS: NORTRIPTYLINE 25 MG CAP PO SCH (20:23)
[2020-12-03] MEDS: **NOTE PATIENT COMMENT** MISC XX SCH (20:27)
[2020-12-03] MEDS ORDERED: APIXABAN 5 MG TAB (ELIQUIS) PO SCH (21:00)
[2020-12-04 04:00] VITALS: BP 112/65
[2020-12-04] MEDS: ACETAMINOPHEN 650MG ER TAB (TYLENOL ARTHRITIS) PO SCH ×3 (05:14→21:02)
[2020-12-04] MEDS: METOPROLOL TART 12.5 MG PER 1/2 TAB PO SCH ×3 (05:15→21:08)
[2020-12-04] MEDS: oxyCODONE 5MG TAB PO PRN (09:22)
[2020-12-04] MEDS: SIMVASTATIN 40 MG TAB PO SCH (09:23)
[2020-12-04] MEDS: LIDOCAINE 5% (LIDODERM) PATCH TD SCH (09:23)
[2020-12-04] MEDS: BACLOFEN 10 MG TAB PO SCH ×2 (09:23→21:03)
[2020-12-04] MEDS: allopurinoL 300 MG TAB PO SCH (09:23)
[2020-12-04] MEDS: GABAPENTIN 300 MG CAP PO SCH ×3 (09:23→21:02)
[2020-12-04] MEDS: DOCUSATE SODIUM 100MG CAPSULE PO SCH ×3 (09:23→21:02)
[2020-12-04] MEDS: TAMSULOSIN 0.4 MG CAP PO SCH (09:23)
[2020-12-04] MEDS: BACTRIM 160MG/800MG DS TAB PO SCH ×2 (09:23→21:02)
[2020-12-04] MEDS: APIXABAN 5 MG TAB (ELIQUIS) PO SCH ×2 (09:23→21:03)
[2020-12-04] MEDS: MULTIVITAMINS/MINERALS THERAP 1 TAB PO SCH (09:23)
[2020-12-04] MEDS: VITAMIN D 1,000 INTERNATIONAL UNITS TABLET PO SCH (09:23)
[2020-12-04] MEDS: SENNA 8.6 MG TAB (SENOKOT) PO SCH (12:00)
[2020-12-04 13:10] VITALS: BP 126/63
[2020-12-04 20:00] VITALS: BP 95/63
[2020-12-04] MEDS: NORTRIPTYLINE 25 MG CAP PO SCH (21:01)
[2020-12-04] MEDS: **NOTE PATIENT COMMENT** MISC XX SCH (21:03)
[2020-12-04] MEDS: BISACODYL 10 MG SUPP PR SCH (21:03)
[2020-12-05] MEDS: ACETAMINOPHEN 650MG ER TAB (TYLENOL ARTHRITIS) PO SCH ×3 (05:05→21:13)
[2020-12-05] MEDS: METOPROLOL TART 12.5 MG PER 1/2 TAB PO SCH ×3 (05:05→21:13)
[2020-12-05 06:00] VITALS: BP 118/74
[2020-12-05 06:53] LABS: HEMATOCRIT 42.4 % (42.0-52.0); HEMOGLOBIN 13.8 g/dl (13.5-17.5); MEAN CORPUSCULAR HEMOGLOBIN 31.5 pg (27.0-33.0); MEAN CORPUSCULAR HGB CONC 32.5 g/dl (32.0-36.5); MEAN CORPUSCULAR VOLUME 96.8 fl (80.0-96.0); PLATELET COUNT, AUTOMATED 328 10^3/uL (150-450); RED BLOOD COUNT 4.38 10^6/uL (4.30-6.10); WHITE BLOOD COUNT 6.7 10^3/uL (4.0-10.0)
[2020-12-05] MEDS: LIDOCAINE 5% (LIDODERM) PATCH TD SCH (07:32)
[2020-12-05] MEDS: allopurinoL 300 MG TAB PO SCH (07:32)
[2020-12-05] MEDS: MULTIVITAMINS/MINERALS THERAP 1 TAB PO SCH (07:32)
[2020-12-05] MEDS: GABAPENTIN 300 MG CAP PO SCH ×3 (07:32→21:12)
[2020-12-05] MEDS: APIXABAN 5 MG TAB (ELIQUIS) PO SCH ×2 (07:33→20:11)
[2020-12-05] MEDS: BACLOFEN 10 MG TAB PO SCH ×2 (07:33→20:11)
[2020-12-05] MEDS: BACTRIM 160MG/800MG DS TAB PO SCH ×2 (07:33→20:12)
[2020-12-05] MEDS: SIMVASTATIN 40 MG TAB PO SCH (07:33)
[2020-12-05] MEDS: TAMSULOSIN 0.4 MG CAP PO SCH (07:33)
[2020-12-05] MEDS: VITAMIN D 1,000 INTERNATIONAL UNITS TABLET PO SCH (07:34)
[2020-12-05] MEDS: DOCUSATE SODIUM 100MG CAPSULE PO SCH ×3 (07:34→20:12)
[2020-12-05] MEDS: SENNA 8.6 MG TAB (SENOKOT) PO SCH (12:00)
[2020-12-05 14:00] VITALS: BP 117/57
[2020-12-05 20:00] VITALS: BP 117/66
[2020-12-05] MEDS: BISACODYL 10 MG SUPP PR SCH (20:00)
[2020-12-05] MEDS: NORTRIPTYLINE 25 MG CAP PO SCH (20:12)
[2020-12-05] MEDS: **NOTE PATIENT COMMENT** MISC XX SCH (20:13)
[2020-12-06 06:00] VITALS: BP 115/72
[2020-12-06] MEDS: METOPROLOL TART 12.5 MG PER 1/2 TAB PO SCH ×3 (06:11→21:24)
[2020-12-06] MEDS: ACETAMINOPHEN 650MG ER TAB (TYLENOL ARTHRITIS) PO SCH (06:11)
[2020-12-06 06:50] LABS: BASO # 0.1 10^3/uL (0.0-0.2); BASO % 0.9 % (0.0-1.0); EOS # 0.3 10^3/uL (0.0-0.5); EOS % 4.3 % (0.0-3.0); HEMATOCRIT 42.8 % (42.0-52.0); HEMOGLOBIN 13.8 g/dl (13.5-17.5); LYMPH # 1.8 10^3/uL (1.5-5.0); LYMPH % 27.3 % (24.0-44.0); MEAN CORPUSCULAR HEMOGLOBIN 31.3 pg (27.0-33.0); MEAN CORPUSCULAR HGB CONC 32.2 g/dl (32.0-36.5); MEAN CORPUSCULAR VOLUME 97.1 fl (80.0-96.0); MONO # 0.5 10^3/uL (0.0-0.8); MONO % 7.6 % (2.0-8.0); NEUTROPHILS % 59.2 % (36.0-66.0); PLATELET COUNT, AUTOMATED 328 10^3/uL (150-450); RED BLOOD COUNT 4.41 10^6/uL (4.30-6.10); WHITE BLOOD COUNT 6.7 10^3/uL (4.0-10.0)
[2020-12-06 07:11] LABS: BLOOD UREA NITROGEN 9 MG/DL (7-18); CARBON DIOXIDE LEVEL 29 MEQ/L (21-32); CHLORIDE LEVEL 105 MEQ/L (98-107); CREATININE FOR GFR 0.89 MG/DL (0.70-1.30); GLOMERULAR FILTRATION RATE > 60.0 (>49); GLUCOSE, FASTING 172 MG/DL (70-100); POTASSIUM SERUM 4.4 MEQ/L (3.5-5.1); SODIUM LEVEL 139 MEQ/L (136-145)
[2020-12-06] MEDS: DOCUSATE SODIUM 100MG CAPSULE PO SCH ×3 (08:06→21:25)
[2020-12-06] MEDS: MULTIVITAMINS/MINERALS THERAP 1 TAB PO SCH (08:06)
[2020-12-06] MEDS: VITAMIN D 1,000 INTERNATIONAL UNITS TABLET PO SCH (08:06)
[2020-12-06] MEDS: TAMSULOSIN 0.4 MG CAP PO SCH (08:06)
[2020-12-06] MEDS: SIMVASTATIN 40 MG TAB PO SCH (08:06)
[2020-12-06] MEDS: allopurinoL 300 MG TAB PO SCH (08:06)
[2020-12-06] MEDS: BACLOFEN 10 MG TAB PO SCH ×2 (08:06→21:29)
[2020-12-06] MEDS: LIDOCAINE 5% (LIDODERM) PATCH TD SCH (08:07)
[2020-12-06] MEDS: oxyCODONE 5MG TAB PO PRN ×2 (08:07→16:47)
[2020-12-06] MEDS: GABAPENTIN 300 MG CAP PO SCH ×3 (08:07→21:24)
[2020-12-06] MEDS: APIXABAN 5 MG TAB (ELIQUIS) PO SCH ×2 (08:07→21:25)
[2020-12-06] MEDS: SENNA 8.6 MG TAB (SENOKOT) PO SCH (11:45)
[2020-12-06] MEDS: ACETAMINOPHEN 500 MG TAB PO SCH ×2 (13:52→21:25)
[2020-12-06 14:00] VITALS: BP 110/64
[2020-12-06 20:00] VITALS: BP 117/68
[2020-12-06] MEDS: BISACODYL 10 MG SUPP PR SCH (20:00)
[2020-12-06] MEDS: **NOTE PATIENT COMMENT** MISC XX SCH (21:24)
[2020-12-06] MEDS: NORTRIPTYLINE 25 MG CAP PO SCH (21:25)
[2020-12-07] MEDS: ACETAMINOPHEN 500 MG TAB PO SCH ×2 (05:17→14:00)
[2020-12-07] MEDS: METOPROLOL TART 12.5 MG PER 1/2 TAB PO SCH ×2 (05:18→14:00)
[2020-12-07 06:24] VITALS: BP 102/61
[2020-12-07] MEDS ORDERED: SENN18TA PO (07:10)
[2020-12-07] MEDS ORDERED: ENEMCAP PR (07:10)
[2020-12-07] MEDS ORDERED: ELIQ5TAB PO ×3 (07:10→10:32)
[2020-12-07] MEDS ORDERED: SIMV40TA20 PO (07:10)
[2020-12-07] MEDS ORDERED: FLOM0.4C39 PO (07:10)
[2020-12-07] MEDS ORDERED: OXYC-517 PO (07:10)
[2020-12-07] MEDS ORDERED: BISA10SU PR (07:10)
[2020-12-07] MEDS ORDERED: VITAD1000T PO (07:10)
[2020-12-07] MEDS ORDERED: LISI10TA22 PO (07:10)
[2020-12-07] MEDS ORDERED: ALLO300T2 PO (07:10)
[2020-12-07] MEDS ORDERED: DOK1CAP7 PO (07:10)
[2020-12-07] MEDS ORDERED: BACL10TA2 PO (07:10)
[2020-12-07] MEDS ORDERED: GABA-282 PO (07:10)
[2020-12-07] MEDS ORDERED: NORT50CA PO (07:10)
[2020-12-07] MEDS ORDERED: METO1TAB87 PO (07:10)
[2020-12-07] MEDS: DOCUSATE SODIUM 100MG CAPSULE PO SCH (08:39)
[2020-12-07] MEDS: MULTIVITAMINS/MINERALS THERAP 1 TAB PO SCH (08:39)
[2020-12-07] MEDS: TAMSULOSIN 0.4 MG CAP PO SCH (08:39)
[2020-12-07] MEDS: allopurinoL 300 MG TAB PO SCH (08:40)
[2020-12-07] MEDS: APIXABAN 5 MG TAB (ELIQUIS) PO SCH (08:40)
[2020-12-07] MEDS: GABAPENTIN 300 MG CAP PO SCH (08:40)
[2020-12-07] MEDS: BACLOFEN 10 MG TAB PO SCH (08:40)
[2020-12-07] MEDS: VITAMIN D 1,000 INTERNATIONAL UNITS TABLET PO SCH (08:40)
[2020-12-07] MEDS: SIMVASTATIN 40 MG TAB PO SCH (08:40)
[2020-12-07] MEDS: LIDOCAINE 5% (LIDODERM) PATCH TD SCH (08:41)
[2020-12-07] MEDS: SENNA 8.6 MG TAB (SENOKOT) PO SCH (12:18)
[2020-12-07] MEDS: oxyCODONE 5MG TAB PO PRN (12:19)
[2020-12-07 14:00] VITALS: BP 109/66
--- NOTE | 2020-12-09 16:43 | PMRDS ---
NAME: [facility] WT ID#: [id number] JOB: [id number] MYRA: 12/09/2020 ACCT: [id number] DOCTOR: DEEDEE BUCKLEY MD PMR DISCHARGE SUMMARY DATE OF ADMISSION: 11/23/2020 DATE OF DISCHARGE: 12/07/2020 CHIEF COMPLAINT/DISCHARGE DIAGNOSIS: Status post T11-12 laminectomy with new diagnosis of deep venous thrombosis (DVT). HISTORY OF PRESENT ILLNESS: This is a 65-year-old male with a past medical history of lumbar stenosis with neurogenic claudication, thoracic myelopathy, hypertension, peripheral polyneuropathy, diabetes, neurogenic bladder, gait instability, status post lumbar fusion, L3-5 in 2012 following a fall from a truck in 2009, receiving workman's comp. He had postoperative neurogenic bowel and bladder requiring straight catheterization and significant back and leg pain with consideration of placement for dorsal column stimulator; however, he instead underwent an elective T11-12 laminectomy with medial facetectomy posterolateral instrumented fusion. Postoperative course complicated with ileus requiring nasogastric (NG) tube placement for gastric decompression, and he had significant pain and decreased mobility. He was felt to be stable. Demonstrated progress in therapy with significant impairments, however, and he was deemed medically and functional stable for discharge to acute rehabilitation unit (ARU). PAST MEDICAL HISTORY: As per history of present illness (HPI). HOSPITAL COURSE: Patient was admitted and enrolled in a comprehensive physical therapy (PT)/occupational therapy (OT) program. He received 24-hour nursing supervision, and weekly team meetings were held to discuss his progress. Patient was initially started on his home diabetes medication; however, he had multiple episodes of hypoglycemia that he was symptomatic with, and he was eventually tapered off of diabetic medication with well controlled fingersticks on diet alone. He tested positive for urinary tract infection, positive for Providencia rettgeri, and was started on a course of Bactrim. He had neurogenic bowel and had episodes of incontinence followed by prolonged constipation, and he was eventually placed on a bowel regimen and was able to void on a regular basis. He was treated for his pain with baclofen and oxycodone. He did report that he did not have any shortness of breath, however, was noted to have drops in oxygen levels when noting his vital signs. Additionally, he was also mildly tachycardic. He denied any leg pain, and there was a negative Wallace's test; however, Dopplers were ordered out of concern for deep venous thrombosis (DVT), and he was noted to have bilateral calf DVTs. Patient had a contrast media allergy, and so a CT angiogram was not able to be performed to rule out pulmonary emboli (PE); however, given treatment for PE and DVT is the same, patient was started on treatment dose of Eliquis for his bilateral DVTs. Patient continued to be stable from a cardiopulmonary perspective and was educated on the importance of continuing the Eliquis with the appropriate dosing and to discuss continuation beyond 3 months with his primary care. He also was educted on multiple occasions about the importance of maintaining a bowel regimen for his neurogenic bladder. He was deemed medically and functionally stable to return home. DISCHARGE MEDICATIONS: As per instructions. FUNCTIONAL HISTORY ON DISCHARGE: Patient was modified independent for functional transfers, able to ambulate contact-guard assist.
[2020-12-10] MEDS ORDERED: APIXABAN 5 MG TAB (ELIQUIS) PO SCH ×2 (21:00)
== END 2020-12-07 14:40 | disposition home health service (06) | DRG 347 ==
LOC: M PM&R 11:13
PROVIDERS: ADMIT Physical Medicine & Rehabilitation; ATTEND Physical Medicine & Rehabilitation
DX: M48.04 Spinal stenosis, thoracic region (principal); E11.42 Type 2 diabetes mellitus with diabetic polyneuropathy; K59.2 Neurogenic bowel, not elsewhere classified; E11.649 Type 2 diabetes mellitus with hypoglycemia without coma; N31.9 Neuromuscular dysfunction of bladder, unspecified; K56.7 Ileus, unspecified; I82.4Z1 Acute embolism and thrombosis of unspecified deep veins of right distal lower extremity; G25.3 Myoclonus; R15.9 Full incontinence of feces; I82.4Z2 Acute embolism and thrombosis of unspecified deep veins of left distal lower extremity; I10 Essential (primary) hypertension; M43.16 Spondylolisthesis, lumbar region; R26.89 Other abnormalities of gait and mobility; M48.062 Spinal stenosis, lumbar region with neurogenic claudication; M79.18 Myalgia, other site; M54.5 Low back pain; R32 Unspecified urinary incontinence; R00.0 Tachycardia, unspecified; G47.00 Insomnia, unspecified; R39.15 Urgency of urination; R35.0 Frequency of micturition; Z98.1 Arthrodesis status; Z79.4 Long term (current) use of insulin; Z79.899 Other long term (current) drug therapy; Z91.041 Radiographic dye allergy status; N39.0 Urinary tract infection, site not specified; Z74.1 Need for assistance with personal care; K59.00 Constipation, unspecified

== ENCOUNTER → 2021-03-16 | Outpatient (CLI) | payer OTHER ==
[~2021-03-16] MED LIST changes: +ALLO300T2 PO; +BACL10TA2 PO; +BISA10SU PR; +COLA100C5 PO; +CYCL-707 PO; +D31000TA2 PO; +DOK1CAP4 PO; +ELIQ5TAB PO; +ENEMCAP PR; +FARX1TAB3 PO; +FLOM0.4C39 PO; +GABA-282 PO; +GLIM4TAB5 PO; -GLIMEPIRIDE 2 MG TAB PO SCH; +HEPA500023 SQ; +INSUHUMDS SC; +LISI10TA22 PO; +LOVA40TA PO; +METF10004 PO; +METO1TAB87 PO; +MIRA3350 PO; +NORT50CA PO; +NUCY50TA19 PO; +OXYC-517 PO; +SENN-23 PO; +SENN18TA PO; +SIMV40TA20 PO; +TAMS1CAP17 PO; +VITAD1000T PO; +ZYLO300T6 PO
== END ==
LOC: M PAIN 09:00
PROVIDERS: ATTEND Anesthesiology
DX: M96.1 Postlaminectomy syndrome, not elsewhere classified (principal); R39.198 Other difficulties with micturition; R15.9 Full incontinence of feces; R29.898 Other symptoms and signs involving the musculoskeletal system; M54.2 Cervicalgia; E11.9 Type 2 diabetes mellitus without complications; E78.00 Pure hypercholesterolemia, unspecified; M10.9 Gout, unspecified; I10 Essential (primary) hypertension; R51.9 Headache, unspecified; N40.0 Benign prostatic hyperplasia without lower urinary tract symptoms; N31.9 Neuromuscular dysfunction of bladder, unspecified; Z79.84 Long term (current) use of oral hypoglycemic drugs; Z79.899 Other long term (current) drug therapy; Z91.041 Radiographic dye allergy status

== ENCOUNTER → 2021-07-05 | Outpatient (CLI) | payer OTHER | LOC: M PLAIMG 08:14 | PROVIDERS: ATTEND Anesthesiology | DX: M54.9 Dorsalgia, unspecified (principal) ==

== ENCOUNTER → 2021-09-20 | Outpatient (CLI) | payer OTHER ==
[~2021-09-20] MED LIST changes: -D31000TA2 PO; +VITA100093 PO
== END ==
LOC: M PAIN 09:45
PROVIDERS: ATTEND Nurse Practitioner Family
DX: M96.1 Postlaminectomy syndrome, not elsewhere classified (principal); R15.9 Full incontinence of feces; R32 Unspecified urinary incontinence; R29.898 Other symptoms and signs involving the musculoskeletal system; E11.9 Type 2 diabetes mellitus without complications; E78.00 Pure hypercholesterolemia, unspecified; M54.50 Low back pain, unspecified; M10.9 Gout, unspecified; I10 Essential (primary) hypertension; R51.9 Headache, unspecified; N40.0 Benign prostatic hyperplasia without lower urinary tract symptoms; N31.9 Neuromuscular dysfunction of bladder, unspecified; M54.2 Cervicalgia; Z98.890 Other specified postprocedural states; Z79.84 Long term (current) use of oral hypoglycemic drugs; Z79.899 Other long term (current) drug therapy; Z91.041 Radiographic dye allergy status
CPT/HCPCS: 76000; G0463

== ENCOUNTER → 2022-07-19 | Outpatient (CLI) | payer MEDICARE ==
[~2022-07-19] MED LIST changes: +ISOVUE-M 300 61% 15ML VIAL As Ordered ONE; +LIDOCAINE 1% SDV 30ML VIAL As Ordered ONE; +NORCO, ANEXSIA 5/325MG TABLET (HYDROcodone/ACETAMINOPHEN) As Ordered ONE; +diazePAM 5MG TABLET As Ordered ONE; +methylPREDNISolone SUSP 40MG/ML 1ML VIAL (DEPO MEDROL) As Ordered ONE
== END ==
LOC: M PAIN 10:15
PROVIDERS: ATTEND Anesthesiology
DX: M96.1 Postlaminectomy syndrome, not elsewhere classified (principal); M54.6 Pain in thoracic spine; E11.9 Type 2 diabetes mellitus without complications; E78.00 Pure hypercholesterolemia, unspecified; M54.50 Low back pain, unspecified; M10.9 Gout, unspecified; I10 Essential (primary) hypertension; N40.0 Benign prostatic hyperplasia without lower urinary tract symptoms; N32.81 Overactive bladder; M54.2 Cervicalgia; N52.9 Male erectile dysfunction, unspecified; R60.0 Localized edema; Z79.84 Long term (current) use of oral hypoglycemic drugs; Z79.899 Other long term (current) drug therapy; Z91.041 Radiographic dye allergy status

== ENCOUNTER → 2022-08-17 | Outpatient (CLI) | payer MEDICARE ==
[~2022-08-17] MED LIST changes: -ISOVUE-M 300 61% 15ML VIAL As Ordered ONE; -LIDOCAINE 1% SDV 30ML VIAL As Ordered ONE; -NORCO, ANEXSIA 5/325MG TABLET (HYDROcodone/ACETAMINOPHEN) As Ordered ONE; -diazePAM 5MG TABLET As Ordered ONE; -methylPREDNISolone SUSP 40MG/ML 1ML VIAL (DEPO MEDROL) As Ordered ONE
== END ==
LOC: M PLAIMG 07:39
PROVIDERS: ATTEND Anesthesiology
DX: M54.14 Radiculopathy, thoracic region (principal)

== ENCOUNTER → 2022-10-30 | Outpatient (CLI) | payer MEDICARE ==
[~2022-10-30] MED LIST changes: +SENN-111 PO; -SENN18TA PO
== END ==
LOC: M PAIN 18:00
PROVIDERS: ATTEND Anesthesiology
DX: M96.1 Postlaminectomy syndrome, not elsewhere classified (principal); E11.9 Type 2 diabetes mellitus without complications; E78.00 Pure hypercholesterolemia, unspecified; M54.50 Low back pain, unspecified; M10.9 Gout, unspecified; I10 Essential (primary) hypertension; M54.2 Cervicalgia; N52.9 Male erectile dysfunction, unspecified; N40.1 Benign prostatic hyperplasia with lower urinary tract symptoms; N31.9 Neuromuscular dysfunction of bladder, unspecified; Z79.84 Long term (current) use of oral hypoglycemic drugs; Z79.899 Other long term (current) drug therapy; Z91.041 Radiographic dye allergy status

== ENCOUNTER → 2023-03-07 | Outpatient (REF) | payer MEDICARE ==
[2023-03-07 12:09] LABS: APPEARANCE, URINE CLEAR (CLEAR); BACTERIA, URINE AUTO NEGATIVE (NEGATIVE); BILIRUBIN, URINE AUTO NEGATIVE (NEGATIVE); BLOOD, URINE BLOOD 1+ (NEGATIVE); COLOR, URINE STRAW (YELLOW); GLUCOSE, URINE (UA) AUTO 3+ mg/dL (NEGATIVE); KETONE, URINE AUTO NEGATIVE (NEGATIVE); LEUKOCYTE ESTERASE, URINE AUTO 2+ (NEGATIVE); MUCUS, URINE SMALL (NEGATIVE); NITRITE, URINE AUTO NEGATIVE (NEGATIVE); PROTEIN, URINE AUTO NEGATIVE (NEGATIVE); RBC, URINE AUTO 2 /HPF (0-3); SPECIFIC GRAVITY URINE AUTO 1.024 (1.002-1.035); SQUAMOUS EPITHELIAL CELL UR AU 0 /HPF (0-6); UROBILINOGEN, URINE AUTO 0.2 mg/dL (0.0-2.0); WBC, URINE AUTO 10 /HPF (0-3)
== END ==
LOC: M SMT 09:40
PROVIDERS: ATTEND Urology
DX: R39.9 Unspecified symptoms and signs involving the genitourinary system (principal)

== ENCOUNTER → 2023-07-20 | Outpatient (REF) | payer MEDICARE ==
[2023-07-20 11:54] LABS: APPEARANCE, URINE CLEAR (CLEAR); BACTERIA, URINE AUTO NEGATIVE (NEGATIVE); BILIRUBIN, URINE AUTO NEGATIVE (NEGATIVE); BLOOD, URINE BLOOD 1+ (NEGATIVE); COLOR, URINE STRAW (YELLOW); GLUCOSE, URINE (UA) AUTO 3+ mg/dL (NEGATIVE); KETONE, URINE AUTO NEGATIVE (NEGATIVE); LEUKOCYTE ESTERASE, URINE AUTO 2+ (NEGATIVE); MUCUS, URINE SMALL (NEGATIVE); NITRITE, URINE AUTO NEGATIVE (NEGATIVE); PROTEIN, URINE AUTO NEGATIVE (NEGATIVE); RBC, URINE AUTO 1 /HPF (0-3); SQUAMOUS EPITHELIAL CELL UR AU 2 /HPF (0-6); UROBILINOGEN, URINE AUTO 0.2 mg/dL (0.0-2.0); WBC, URINE AUTO 6 /HPF (0-3)
== END ==
LOC: M SMT 09:35
PROVIDERS: ATTEND Urology
DX: N39.0 Urinary tract infection, site not specified (principal)